=== PATIENT | female | born 1940 | race Caucasian/White ===

== ENCOUNTER 2017-05-14 11:55 | Inpatient (IN) | payer OTHER ==
[~2017-05-14] VITALS: Ht 172.7 cm; Wt 57.2 kg
[~2017-05-14 11:55] MED LIST: ACETAMINOPHEN-1 EAC1 PO; ANASPAZ0.125 MG SL; ATORVASTATIN CA40 MG PO; BAYER CHEWABLE81 MG PO; BENICAR20 MG PO; BISACODYL SUPP10 MG RECTAL; CARAFATE 1 GM TA1 G1 PO; COLACE100 MG PO; COZAAR 50 MG TA50 M2 PO; CRESTOR10 MG PO; CYANOCOBAL1000 MCG/1 IM; DEXTROSE 5% IV; ENEMEEZ283 MG/5 M RC; ENOXAPARIN40 MG/0.1 SUBQ; HALDOL5 MG/1 ML IM; HALOPERIDOL5 MG/1 ML IM; HYDROCODONE-AP1 EAC6 PO; LEVAQUIN 500 M500 M4 PO; LIDODERM 5%1 PATC1 TRANSDERM; MELATONIN3 MG PO; MIRALAX17 GM PO; PACERONE 200 M200 M1 PO; PHILLIPS'311 MG PO; PRILOSEC 20 MG20 MG PO; SENOKOT-S1 TA1 PO; SEROQUEL 25 MG25 M1 PO; SEROQUEL 25 MG25 M2 PO; TOPROL XL25 MG PO; TYLENOL325 MG PO; ULTRAM 50MG TAB50 MG PO; UNICOMPLEX M TA1 TA1 PO; VITAMIN B-1100 M1 PO; ZOFRAN2 MG/1 ML IV; [UNRECOGNIZED DRUG - CODE] TOP
[2017-05-14 14:25] VITALS: BP 187/82
[2017-05-14 16:44] VITALS: BP 169/64
[2017-05-14 17:00] LABS: CALCIUM 9.2 mg/dL (8.5-10.1); CREATININE 1.4 mg/dL (0.6-1.0); POTASSIUM 3.8 mmol/L (3.5-5.1)
[2017-05-14 20:30] VITALS: BP 150/60
[2017-05-15 03:42] VITALS: BP 154/60
[2017-05-15 08:00] VITALS: BP 160/53
[2017-05-15 16:00] VITALS: BP 173/71
[2017-05-15 23:54] VITALS: BP 152/65
[2017-05-16 05:45] VITALS: BP 156/59
[2017-05-16 08:00] VITALS: BP 162/60
[2017-05-16 12:50] VITALS: BP 162/60
[2017-05-16 12:55] VITALS: BP 162/60
[2017-05-16 13:06] VITALS: BP 162/60
[2017-05-16 13:08] VITALS: BP 162/60
== END 2017-05-16 16:31 | disposition home health service (06) | DRG 392 ==
LOC: ULTRA 11:55 → 4S 14:11
PROVIDERS: Family Medicine
DX: K21.9 Gastro-esophageal reflux disease without esophagitis (principal); Z96.641 Presence of right artificial hip joint; Z90.49 Acquired absence of other specified parts of digestive tract; Z90.710 Acquired absence of both cervix and uterus; Z95.5 Presence of coronary angioplasty implant and graft; Z87.81 Personal history of (healed) traumatic fracture
CPT/HCPCS: 10102

== ENCOUNTER → 2017-09-06 | Outpatient (CLI) | payer OTHER | LOC: ULTRA 09:59 | DX: M25.462 Effusion, left knee (principal); M71.22 Synovial cyst of popliteal space [Baker], left knee ==

== ENCOUNTER 2017-11-06 11:57 | Inpatient (IN) | payer OTHER ==
[~2017-11-06] VITALS: Ht 175.3 cm; Wt 62.1 kg
--- NOTE | ~2017-11-06 | H ---
[facility] [place] [address] HISTORY AND PHYSICAL Name: PASCUAL HAAS Room #: 405-P [facility] IN M.R.#: [id number] Admission: 11/06/17 Attend Phys: Edi Scales MD Discharge: Date of : 41 Report #: [id number] THIS REPORT FOR: //name// CC: Edi Scales DATE OF SERVICE: 11/06/2017 CHIEF COMPLAINT: Left leg is red, swollen and oozing. HISTORY OF PRESENT ILLNESS: The patient is a 77-year-old female who presented to our clinic for evaluation of the above complaints. She had a vein procedure done by Dr. Gregorio recently as an outpatient. This redness and swelling has developed over the last several days. She is not aware of any fevers or chills. PAST MEDICAL HISTORY: Significant for: 1. Venous insufficiency. 2. Atrial fibrillation. 3. Vitamin B deficiency. 4. Hypertension. MEDICATIONS: Include Cozaar 50 mg a day, Colace daily, B12 injections monthly, aspirin 81 mg a day, amiodarone 10 mg at bedtime, Tylenol p.r.n. ALLERGIES: No known drug allergies. SOCIAL HISTORY: She lives independently. She is a prior smoker, nondrinker. REVIEW OF SYSTEMS: CONSTITUTIONAL: No fever or chills. HEENT: No headaches or visual changes. CHEST: No chest pain, tightness in chest, short of breath, cough or sputum production. GASTROINTESTINAL: No nausea, vomiting, diarrhea or constipation. GENITOURINARY: No burning or frequency. EXTREMITIES: Left leg as above. PHYSICAL EXAMINATION: GENERAL: The patient is awake, alert, in no acute distress. She is afebrile. VITAL SIGNS: Stable. HEENT: Mucous membranes are moist. NECK: Supple, no adenopathy, no thyromegaly or bruits. CHEST: Clear to auscultation. CARDIOVASCULAR: Regular, without murmur. ABDOMEN: Soft, no masses. Bowel sounds are active. EXTREMITIES: Left leg shows extensive edema, erythema with multiple blushes around her legs, especially in the back of her calf which is about 4 x 4 cm, [facility] [address] [place] [address] HISTORY AND PHYSICAL Name: PASCUAL HAAS Room #: 405-P ADM IN .R.#: [id number] Admission: 11/06/17 Attend Phys: Edi Scales MD Discharge: Date of : 41 Report #: [id number] full of serous fluid. The toes have excoriated skin and erythema as well. There is no gangrene. Pulses are present bilaterally. ASSESSMENT: Severe cellulitis of the left leg. PLAN: We will admit, start on Rocephin, given a gram of Rocephin IM in the office, get a CBC with CMP, placed her on wound care consult list, get a wound culture and then her home meds. <ELECTRONICALLY SIGNED> By: Edi Scales MD 11/07/17 0826 1245 1304 Edi Scales MD /nt
--- NOTE | ~2017-11-06 | HC ---
[facility] [place] [address] CONSULTATION Name: PASCUAL HAAS Room #: 405-P [facility] IN ..#: [id number] Admission: 11/06/17 Attend Phys: Edi Scales MD Discharge: Date of : 41 Report #: [id number] THIS REPORT FOR: //name// CC: Edi Scales DATE OF SERVICE: 11/07/2017 CHIEF COMPLAINT: Ulcerations and cellulitis, bilateral lower extremities. HISTORY OF PRESENT ILLNESS: This is a 77-year-old female patient who was admitted after developing increasing redness, swelling and drainage from ulcerations on her left leg. She has had recent procedure done by Dr. Oneill as an outpatient and the redness and drainage have developed over the past several days. She does complain of some pain, but otherwise is resting comfortably. PAST MEDICAL HISTORY: Positive for history of venous insufficiency, atrial fibrillation, vitamin B deficiency and hypertension. MEDICATIONS: Include Cozaar, Colace, aspirin and amiodarone. ALLERGIES: None. SOCIAL HISTORY: The patient denies alcohol or tobacco use. FAMILY HISTORY: Noncontributory. REVIEW OF SYSTEMS: CONSTITUTIONAL: Denies fever, chills, weight loss. NEUROLOGICAL: The patient denies focal weakness, numbness or tingling. EYES: The patient denies vision changes, redness or drainage. ENT: The patient denies earache, nasal drainage, sore throat. CARDIOVASCULAR: The patient denies chest pain, palpitations, diaphoresis. PULMONARY: The patient denies cough, shortness of breath. GASTROINTESTINAL: The patient denies nausea, vomiting, abdominal pain. ORTHOPEDIC: The patient does complain of pain, swelling and drainage from her left lower extremity. Other systems in a 12-point review of systems are negative. PHYSICAL EXAMINATION: VITAL SIGNS: At this time include pulse 57, respiratory rate 18, blood pressure 106/49, temperature 97.0. GENERAL: This is a chronically ill-appearing female patient who appears to be in minimal distress. HEENT: Normocephalic. Nose and throat clear. NECK: Supple. [facility] [address] [place] [address] CONSULTATION Name: PASCUAL HAAS Room #: 405-P [facility] IN M.R.#: [id number] Admission: 11/06/17 Attend Phys: Edi Scales MD Discharge: Date of : 41 Report #: [id number] LUNGS: Clear. HEART: Regular rhythm. ABDOMEN: Some bowel sounds present. LOWER EXTREMITIES: Demonstrate 2+ edema. I am able to palpate her distal pulses. She has a cellulitic type changes in both lower extremities and venous ulcers involving the left leg. The areas are tender to palpation. There is no evidence of obvious abscess at this time. NEUROLOGIC: The patient is alert, oriented, moving all 4 extremities spontaneously. LABORATORY DATA: Includes sodium 138, potassium 5.0, chloride 105, CO2 of 24, BUN 39, creatinine 1.4, glucose 114. White blood cell count is 8.7, hemoglobin 10.8, hematocrit 32.4, platelet count 153,000. CLINICAL IMPRESSION: 1. Cellulitis to bilateral lower extremities. 2. Venous ulcerations, left lower extremity. 3. Generalized weakness. RECOMMENDATIONS: At this point in time, we will recommend Silvadene and morphine to the ulceration of the left leg to help with pain. We recommend Xeroform gauze to cover and we will change this to b.i.d. Light compression would be appropriate, elevation when possible. I would recommend continue IV antibiotics. PT, OT for help with weakness and mobility as well as nutrition to maximize wound healing. I appreciate being asked to see her in consultation. <ELECTRONICALLY SIGNED> By: Rd Chinchilla MD 11/08/[address] MD /nt
[2017-11-06 13:16] LABS: HEMATOCRIT 32.4 % (37.0-47.0); HEMOGLOBIN 10.8 gm/dL (12.0-15.0); MCH 33.7 pg (26.0-34.0); MCHC 33.4 g/dL (28.0-37.0); RBC 3.21 mil/uL (4.20-5.00); RDW 15.6 % (10.5-14.5); WBC 8.7 thou/uL (4.0-11.0)
[2017-11-06 13:27] LABS: CALCIUM 9.2 mg/dL (8.5-10.1); CREATININE 1.4 mg/dL (0.6-1.0)
[2017-11-06 19:00] VITALS: BP 168/72
[2017-11-07 04:00] VITALS: BP 134/66
[2017-11-07 09:30] VITALS: BP 126/49
[2017-11-07 17:24] VITALS: BP 106/49
[2017-11-07 20:00] VITALS: BP 135/69
[2017-11-08] VITALS: BP 112/63
[2017-11-08 04:00] VITALS: BP 103/49
[2017-11-08 09:37] VITALS: BP 114/52
[2017-11-08 16:00] VITALS: BP 144/73
[2017-11-08 19:52] VITALS: BP 131/59
[2017-11-09 04:00] VITALS: BP 110/47
[2017-11-09 07:40] VITALS: BP 128/58
[2017-11-09 15:55] VITALS: BP 113/42
[2017-11-09 20:43] VITALS: BP 116/51
[2017-11-10 04:00] VITALS: BP 110/49
[2017-11-10 08:00] VITALS: BP 138/59
[2017-11-10 08:11] VITALS: BP 138/59
[2017-11-10] MEDS ORDERED: ROCEPHIN 11 GM/1001 IV (12:32)
[2018-06-19] MEDS ORDERED: KEFLEX500 M1 PO (18:42)
== END 2017-11-10 15:04 | DRG 603 ==
LOC: PRE 11:57 → EROBS 11:59 → 4N 11:59 → EROBS 13:01 → 4N 18:37
PROVIDERS: Family Medicine
DX: L03.116 Cellulitis of left lower limb (principal); I48.91 Unspecified atrial fibrillation; I10 Essential (primary) hypertension; I89.0 Lymphedema, not elsewhere classified; I87.2 Venous insufficiency (chronic) (peripheral); L03.115 Cellulitis of right lower limb; Z87.891 Personal history of nicotine dependence; Z79.82 Long term (current) use of aspirin; Z79.899 Other long term (current) drug therapy; W18.39XA Other fall on same level, initial encounter; Y93.89 Activity, other specified; Y92.89 Other specified places as the place of occurrence of the external cause; Y99.8 Other external cause status
CPT/HCPCS: 10790

== ENCOUNTER → 2017-12-04 | Outpatient (CLI) | payer OTHER ==
[~2017-12-04] MED LIST changes: +KEFLEX500 M1 PO; +PHENERGAN 25 MG25 M1 PO; +ROCEPHIN 11 GM/1001 IV; +ZANTAC 150MG T150 MG PO
== END ==
LOC: ULTRA 09:54
DX: R60.0 Localized edema (principal); M79.89 Other specified soft tissue disorders

== ENCOUNTER 2018-04-29 12:55 | Emergency (ER) | payer OTHER ==
[~2018-04-29] VITALS: Ht 167.6 cm; Wt 56.7 kg
--- NOTE | ~2018-04-29 | EKG ---
[address] [place] [address] [place] [address] ELECTROCARDIOGRAM REPORT Name: PASCUAL HAAS Room #: DEP Luisa#: [id number] Admission: 04/29/18 Attend Phys: Discharge: 04/29/18 Date of : 41 Report #: [id number] THIS REPORT FOR: //name// [facility] ED Test Date: 2018-04-29 Test Time: 14:44:53 Pat Name: PASCUAL HAAS Department: Room: Gender: F Bdr: kehinde : 1940 Requested By: Martha Macdonald Order Number: [id number] MD: Grant Roper Measurements Intervals [place] Rate: 53 P: 88 GA: 227 QRS: -5 QRSD: 113 T: 140 QT: 484 QTc: 455 Interpretive Statements Sinus rhythm Prolonged GA interval Incomplete left bundle branch block Compared to ECG 11/17/2016 09:47:09 First degree AV block now present Left bundle-branch block now present Atrial fibrillation no longer present Electronically Signed On 04-29-2018 22:05:19 CDT by Grant Roper [email or web address] <ELECTRONICALLY SIGNED> By: Grant Roper MD 04/29/182204 1444 1444 Grant Roper MD /ARIA
[~2018-04-29 12:55] MED LIST changes: -KEFLEX500 M1 PO; -PHENERGAN 25 MG25 M1 PO; -ZANTAC 150MG T150 MG PO
[2018-04-29 14:50] LABS: BASOPHILS 0.5 % (0.0-2.0); EOSINOPHILS 0.8 % (0.0-3.0); HEMOGLOBIN 8.4 gm/dL (12.0-15.0); LYMPHOCYTES 13.1 % (24.0-44.0); MCH 35.6 pg (26.0-34.0); MCHC 34.8 g/dL (28.0-37.0); MCV 102.3 fL (80.0-100.0); MONOCYTES 7.8 % (1.0-8.0); POLYS 77.8 % (36.0-66.0); RBC 2.35 mil/uL (4.20-5.00); RDW 13.3 % (10.5-14.5); WBC 5.1 thou/uL (4.0-11.0)
[2018-04-29 14:56] LABS: ANION GAP 7 mmol/L (7-16); BUN 33 mg/dL (7-18); CALCIUM 8.6 mg/dL (8.5-10.1); CHLORIDE 99 mmol/L (98-107); CO2 27 mmol/L (21-32); CREATININE 2.1 mg/dL (0.6-1.0); GLUCOSE 102 mg/dL (74-106); POTASSIUM 3.1 mmol/L (3.5-5.1); SODIUM 133 mmol/L (136-145)
[2018-04-29 15:05] LABS: ALBUMIN 3.5 g/dL (3.4-5.0); LIPASE 266 U/L (73-393); SGOT 31 U/L (15-37); SGPT 37 U/L (30-65); TOTAL BILIRUBIN 0.6 mg/dL (<0.1-1.0); TOTAL PROTEIN 6.6 g/dL (6.4-8.2); TROPONIN-I <0.06 ng/mL (<0.06)
[2018-04-29 15:14] LABS: PLATELET ESTIMATE NORMAL
[2018-04-29 15:16] LABS: LARGE PLATELETS SEVERAL
[2018-04-29 15:49] LABS: URINE BILIRUBIN NEGATIVE (Negative); URINE BLOOD NEGATIVE (Negative); URINE CLARITY CLEAR; URINE COLOR YELLOW; URINE GLUCOSE-RANDOM* NEGATIVE (Negative); URINE KETONES NEGATIVE (Negative); URINE LEUKOCYTES-REFLEX NEGATIVE (Negative); URINE NITRITE-REFLEX NEGATIVE (Negative); URINE PROTEIN (DIPSTICK) NEGATIVE (Negative); URINE SPECIFIC GRAVITY 1.015 (1.005-1.035); URINE UROBILINOGEN 0.2 E.U./dl (0.2-1.0)
[2018-04-29] MEDS ORDERED: ZANTAC 150MG T150 MG PO (16:36)
[2018-04-29] MEDS ORDERED: PHENERGAN 25 MG25 M1 PO (16:36)
== END 2018-04-29 17:17 | disposition home or self-care (01) ==
LOC: ER 12:55
PROVIDERS: Physician Assistant
DX: R10.13 Epigastric pain (principal); R10.11 Right upper quadrant pain; R11.0 Nausea; R14.0 Abdominal distension (gaseous); Z90.49 Acquired absence of other specified parts of digestive tract; Z90.710 Acquired absence of both cervix and uterus; Z90.89 Acquired absence of other organs

== ENCOUNTER → 2018-10-09 | Outpatient (CLI) | payer OTHER ==
[~2018-10-09] MED LIST changes: +KEFLEX500 M1 PO; +PHENERGAN 25 MG25 M1 PO; +ZANTAC 150MG T150 MG PO
== END ==
LOC: HYPER 10-07 06:54
DX: L89.152 Pressure ulcer of sacral region, stage 2 (principal); I10 Essential (primary) hypertension; I25.810 Atherosclerosis of coronary artery bypass graft(s) without angina pectoris; I87.2 Venous insufficiency (chronic) (peripheral); I77.9 Disorder of arteries and arterioles, unspecified; I48.0 Paroxysmal atrial fibrillation; L03.116 Cellulitis of left lower limb; E78.00 Pure hypercholesterolemia, unspecified; I25.2 Old myocardial infarction; F32.9 Major depressive disorder, single episode, unspecified; Z95.1 Presence of aortocoronary bypass graft; Z91.81 History of falling

== ENCOUNTER 2018-10-27 15:50 | Inpatient (IN) | payer OTHER ==
[~2018-10-27] VITALS: Ht 170.2 cm; Wt 61.7 kg
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
[2018-10-27 15:54] VITALS: BP 148/73
--- NOTE | 2018-10-27 16:15 | NUR ---
PATIENT TO ER #2 WITH C/0 REDNESS, EDEMA, PAIN TO BILATERAL LE, RIGHT > LEFT. PATIENT STATES VISITING NURSE WAS OUT TODAY AND INSTRUCTED PT TO COME TO ED FOR EVALUATION. SEE ATTACHED ASSESSMENT.
[2018-10-27 16:57] LABS: ABSOLUTE NEUTROPHILS 3.1 thou/uL (1.4-8.2); BASOPHILS 1.3 % (0.0-2.0); EOSINOPHILS 3.2 % (0.0-3.0); HEMATOCRIT 28.3 % (37.0-47.0); HEMOGLOBIN 9.4 gm/dL (12.0-15.0); LYMPHOCYTES 18.1 % (24.0-44.0); MCH 35.4 pg (26.0-34.0); MCHC 33.2 g/dL (28.0-37.0); MCV 106.5 fL (80.0-100.0); MONOCYTES 10.4 % (1.0-8.0); PLATELET COUNT 110 thou/uL (150-400); RBC 2.65 mil/uL (4.20-5.00); RDW 15.1 % (10.5-14.5); WBC 4.7 thou/uL (4.0-11.0)
[2018-10-27 17:02] LABS: ANION GAP 12 mmol/L (7-16); BUN 42 mg/dL (7-18); CALCIUM 9.6 mg/dL (8.5-10.1); CHLORIDE 105 mmol/L (98-107); CO2 24 mmol/L (21-32); CREATININE 1.7 mg/dL (0.6-1.0); GLUCOSE 109 mg/dL (74-106); POTASSIUM 4.9 mmol/L (3.5-5.1); SODIUM 141 mmol/L (136-145)
[2018-10-27 17:10] LABS: ALBUMIN 3.8 g/dL (3.4-5.0); MAGNESIUM 2.3 mg/dL (1.8-2.4); SGOT 40 U/L (15-37); SGPT 36 U/L (30-65); TOTAL BILIRUBIN 0.6 mg/dL (<0.1-1.0); TOTAL PROTEIN 7.3 g/dL (6.4-8.2); TROPONIN-I <0.06 ng/mL (<0.06)
[2018-10-27 17:56] LABS: URINE BILIRUBIN NEGATIVE (Negative); URINE BLOOD NEGATIVE (Negative); URINE CLARITY CLEAR; URINE COLOR YELLOW; URINE GLUCOSE-RANDOM* NEGATIVE (Negative); URINE KETONES NEGATIVE (Negative); URINE LEUKOCYTES-REFLEX NEGATIVE (Negative); URINE NITRITE-REFLEX NEGATIVE (Negative); URINE PROTEIN (DIPSTICK) NEGATIVE (Negative); URINE UROBILINOGEN 0.2 E.U./dl (0.2-1.0)
[2018-10-27 18:23] VITALS: BP 136/69
--- NOTE | 2018-10-27 18:30 | NUR ---
PATIENT READY FOR TRANSFER TO THE FLOOR. U/S AT BEDSIDE DOING VENOUS DOPPLER. WILL TRANSPORT AFTER COMPLETION.
[2018-10-27 18:31] VITALS: BP 145/59
[2018-10-27 19:00] VITALS: BP 150/72
--- NOTE | 2018-10-27 19:34 | NUR ---
Pt arrived on unit approx 1900 as tranfer from ED. Pt arrived in stable condition. O2 97% on RA, no s/sx of resp distress. Pt A&Ox3, able to make needs known. Orientated to room, call light and fall precautions. Will continue to assess and monitor pt.
--- NOTE | 2018-10-27 22:06 | EKG ---
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 : 1940 Requested By: Mark Mcgill Order Number: [id number] MD: Grant Roper Measurements Intervals [place] Rate: 61 P: 82 CT: 188 QRS: 9 QRSD: 100 T: 186 QT: 457 QTc: 461 Interpretive Statements Sinus rhythm Anteroseptal infarct, old Nonspecific repol abnormality, lateral leads Compared to ECG 04/29/2018 14:44:53 Myocardial infarct finding now present Early repolarization now present First degree AV block no longer present Left bundle-branch block no longer present Electronically Signed On 10-27-2018 22:05:57 [employer]OT [employer] HELPER by Grant Roper [email or web address] <ELECTRONICALLY SIGNED> By: Grant Roper MD 10/27/18 2205 1724 1724 Grant Roper MD /EPI
[2018-10-28 04:35] VITALS: BP 136/57
[2018-10-28 05:58] LABS: ABSOLUTE NEUTROPHILS 2.1 thou/uL (1.4-8.2); BASOPHILS 1.3 % (0.0-2.0); EOSINOPHILS 4.3 % (0.0-3.0); HEMATOCRIT 25.1 % (37.0-47.0); HEMOGLOBIN 8.4 gm/dL (12.0-15.0); LYMPHOCYTES 28.4 % (24.0-44.0); MCHC 33.3 g/dL (28.0-37.0); MCV 105.1 fL (80.0-100.0); MONOCYTES 11.4 % (1.0-8.0); POLYS 54.6 % (36.0-66.0); RBC 2.39 mil/uL (4.20-5.00); RDW 14.5 % (10.5-14.5); WBC 3.9 thou/uL (4.0-11.0)
[2018-10-28 06:20] LABS: ALBUMIN 2.9 g/dL (3.4-5.0); CALCIUM 8.6 mg/dL (8.5-10.1); CREATININE 1.6 mg/dL (0.6-1.0); POTASSIUM 4.4 mmol/L (3.5-5.1); TOTAL BILIRUBIN 0.6 mg/dL (<0.1-1.0); TOTAL PROTEIN 5.8 g/dL (6.4-8.2)
[2018-10-28 07:08] LABS: PLATELET COUNT 92 thou/uL (150-400); PLATELET ESTIMATE DECREASED
[2018-10-28 07:13] LABS: LARGE PLATELETS OCCASIONAL
[2018-10-28 07:14] LABS: MACROCYTES 1+
[2018-10-28 07:44] LABS: FOLIC ACID 62.6 ng/mL (8.6-58.9)
[2018-10-28 07:50] VITALS: BP 118/59
--- NOTE | 2018-10-28 12:10 | NUR ---
ASSUMED CARE OF PT AT 0700. ASSESSMENT COMPLETED AND CHARTED. A&O,X4. REPORTING LEFT LOWER LEG PAIN, PAIN MEDS GIVEN ORDERED. LEG APPEARS RED, SWOLLEN, FLAKEY SKIN, WARM AND TENDER TO TOUCH. RIGHT ANKLE EDEMA. WOUNDS ON BUTTOCK. NO OTHER CONCERNS AT THIS TIME. PT TRANSFERED TO S.S. IN STABLE CONDITION.
[2018-10-28 12:35] VITALS: BP 123/59
--- NOTE | 2018-10-28 12:43 | NUR ---
RECEIVED PT FROM . ORIENTED PT TO ROOM/CALL LIGHT. ASSESSMENT IS CHARTED. IV FLUIDS NS AT 80ML/HR. PT REPORTS PAIN 7/10 AFTER FENTANYL. HYDROCODONE GIVEN. PT UNHAPPY WITH SUDDEN MOVE TO SENIOR SUITES. STATES THE ROOM FEELS CLOSED IN. VISITED WITH PATIENT FOR A TIME AND PT FEELS BETTER AT THIS TIME ABOUT MOVE. WILL CONTINUE CURRENT CARE ORDERED.
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
--- NOTE | 2018-10-28 16:32 | NUR ---
WOUND CONSULT: PT. WAS SEEN TODAY BY DR. NICHOLE AND MYSELF. PT. HAS A SMALL STAGE 2 PRESSURE ULCER TO HER RIGHT BUTTOCK AND DRY LEFT LEG. RECOMMENDATIONS: LOTION TO THE LEFT LEG AND ZGUARD TO SACRUM. PT. AND STAFF NURSE WERE INSTRUCTED ON WOUND CARE.
--- NOTE | 2018-10-28 18:07 | NUR ---
PT DOING WELL. SKIN CARE DONE TO LOWER LEGS PER WOUND CARE ORDERS. ASSISTED PT TO CHAIR FOR DINNER. PAIN MEDICATION GIVEN FOR LEFT LEG PAIN RATED 8/10 AND BUTTOCK PAIN RATED 5/10. WILL CONTINUE TO MONITOR.
[2018-10-28 19:24] VITALS: BP 124/64
--- NOTE | 2018-10-29 03:33 | NUR ---
PATIENT ALERT AND ORIENTED X4. IV PATENT NS AT 80ML/HR. BOUNDS ON LEGS AND L RUTTOCK OPEN TO AIR. UP TO BATHROOM WITH ASSIST OF 1. C/O PAIN AND PAIN MED GIVEN WITH LITTLE RELIEF. TALKED WITH THIS NURSE FOR SEVERAL MINUTES. AWAKE MOST OF NIGHT.
[2018-10-29 09:39] VITALS: BP 146/63
--- NOTE | 2018-10-29 09:44 | NUR ---
ASSUMED PT CARE AT 0700. ASSESSED PT AT 0930. PT UP IN CHAIR. REPORTS PAIN TO LEFT LEG RATED 9/10. LEFT LEG IS EDEMETOUS AND REDDENED. LEG WAS WASHED GENTLY WITH SOAP/WATER, DRIED, AND AMMONIA LACTATE LOTION APPLIED ORDERED. ZGUARD APPLIED TO WOUND TO RIGHT BUTTOCK. ASSESSMENT IS CHARTED, VITAL SIGNS STABLE. NO OTHER CONCERNS AT THIS TIME. WILL CONTINUE WITH CURRENT CARE.
--- NOTE | 2018-10-29 10:27 | NUR ---
PT WAS INFORMED THAT DR WRIGHT ORDERED AN MRI FOR MEMORY PROBLEMS. PT FILLED OUT MRI FORM BUT THEN CALLED NURSE BACK IN STATING SHE WAS GETTING MORE AND MORE ANGRY. PT DID NOT THINK AN MRI WAS NECESSARY AND SHE DIDN'T APPRECIATE PEOPLE SHE DOESN'T EVEN KNOW TALKING ABOUT HER AND ACCUSING HER OF HAVING THESE PROBLEMS. WHEN ASKED IF PT HAD SEEN A DOCTOR TODAY SHE STATED SHE HAS NOT SEEN ANYONE, THEN A FEW SECONDS LATER STATES THAT DR WRIGHT DID COME IN AND SEE HER. PT DOES NOT WANT MRI DONE AND STATES SHE CAN TAKE CARE OF HERSELF. ENCOURAGED PT THAT THOSE INVOLVED IN HER CARE ARE LOOKING OUT FOR HER BEST INTERESTS AND MAKING SURE SHE IS SAFE AT HOME. PT STILL REFUSES MRI AT THIS TIME.
--- NOTE | 2018-10-29 10:57 | HC ---
[facility] [place] [address] CONSULTATION Name: PASCUAL HAAS Room #: 224-P [facility] IN M.R.#: [id number] Admission: 10/27/18 Attend Phys: Andre De Anda MD Discharge: Date of : 41 Report #: [id number] THIS REPORT FOR: //name// CC: Andre De Anda HISTORY OF PRESENT ILLNESS: The patient is a 78-year-old female who presents to the Emergency Room with cellulitis. She is now on IV antibiotics. I spoke to the patient and she tells me that she does not have difficulty with her memory, most of her bills are on auto pay and the rest of the bill she pays by hand, she states she does not pay them late. She does not drive, but could drive if she wanted to. Apparently, the patient's only source of help is from home health and not only is home health, but the apartment where she lives, the management is concerned about the patient. Apparently, her apartment is dirty and they feel that she is struggling. The patient has had normal B12 and thyroid studies. PAST MEDICAL HISTORY: Endometriosis, hyperlipidemia, hypertension, pelvic fracture, coronary artery disease, B12 deficiency, iron deficiency. PAST SURGICAL HISTORY: Cholecystectomy, coronary artery bypass graft x 6, hysterectomy, right hip fracture repair. MEDICATIONS: At home include tramadol p.r.n., rosuvastatin 40 mg daily, losartan 50 mg daily, amiodarone 200 mg daily. ALLERGIES: None. VITAL SIGNS: Temperature 36.9, pulse rate 64, respiratory rate 16, blood pressure 146/63, bedside pulse oximetry 100% on room air. LABORATORY DATA: White blood cell count 3.9, hemoglobin 8.4, hematocrit 25.1, MCV 105.1, platelet count 92,000. Urinalysis unremarkable. Chemistry: Sodium 140, potassium 4.4, chloride 107, carbon dioxide 23, BUN 36, creatinine 1.6, GFR 31, glucose 79. Lactic acid 0.9, calcium 8.6, magnesium 2.3, total bilirubin 0.6, AST 41, ALT 36, alkaline phosphatase 64, total protein 5.8, albumin 2.9. Vitamin B12 523, folic acid 62.6. TSH 3.4, free T4 1.1. The patient's last CT scan of the head was 12/21/2015, this was unremarkable. NEUROLOGIC: Cranial nerves 2-12 are grossly intact. Motor exam demonstrates symmetrical strength in all 4 extremities with tone and bulk normal. Reflexes are trace throughout. Coordination demonstrates no evidence of dysmetria. The patient scored a 27/30 on the mini mental state exam. She did not know what room she was in and she thought it was 10/28/2018 when it is 10/29/2018 and she thought it was Sunday when it is Sunday. IMPRESSION AND PLAN: I spoke with the speech therapist who was about to go into [address] [address] CONSULTATION Name: PASCUAL HAAS Room #: 224-P [facility] IN M.R.#: [id number] Admission: 10/27/18 Attend Phys: Andre De Anda MD Discharge: Date of : 41 Report #: [id number] the room and do a MoCA. My feeling is that unless there is a significant abnormality on the MoCA, I would reassess the patient's mentation as an outpatient. For the most part, she did well on the memory testing. There are no untreated underlying causes of dementia. However, because there is some concern, I am going to order either a CT or MRI of the head. After I left the room, the nurse advised me that the patient declined the MRI. The patient should also be screened for depression. I understand there is concern about her living alone. I am not sure that this is because of dementia, but I do think depression should be considered. I thank you for your evaluation of the patient and we will reevaluate her tomorrow. <ELECTRONICALLY SIGNED> By: Maria De Jesus Rodríguez DO 10/29/18 1057 1004 1042 Maria De Jesus Rodríguez DO /nt
--- NOTE | 2018-10-29 14:09 | NUR ---
PT DOING WELL THIS SHIFT. HAS BEEN SEEN BY NUEURO,PSYCH, AND SPEECH. ASSISTED PT TO BED TO ELEVATE LEFT LEG. REAPPLIED ZGUARD TO RIGHT BUTTOCK WOUND. PT REPORTS PAIN IN LEG /. PAIN MEDICATION GIVEN. OTHERWISE NO NEW CONCERNS. WILL CONTINUE WITH CURRENT POC.
--- NOTE | 2018-10-29 16:20 | NUR ---
WOUND FOLLOW UP: PT. WAS SEEN TODAY BY DR. NICHOLE AND MYSELF. PT. WOUNDS ARE CLINICALLY BETTER TODAY. RECOMMENDATIONS: CONTINUE WITH CURRENT PLAN OF CARE. PT. AND STAFF NURSE WERE INSTRUCTED ON PLAN OF CARE.
--- NOTE | 2018-10-29 17:35 | NUR ---
PT DOING WELL TODAY. NAPPED FOR 2 HOURS THIS AFTERNOON AND ELEVATED LEG. PT UP AND AROUND IN ROOM WITH NO PROBLEMS. PAIN WELL CONTROLLED WITH CURRENT REGIMINE. NO NEW CONCERNS AT THIS TIME. WILL CONTINUE CARE.
--- NOTE | 2018-10-29 17:48 | HC ---
[facility] [place] [address] CONSULTATION Name: PASCUAL HAAS Room #: 224-P [facility] IN ..#: [id number] Admission: 10/27/18 Attend Phys: Andre De Anda MD Discharge: Date of : 42 Report #: [id number] THIS REPORT FOR: //name// CC: Andre De Anda DATE OF SERVICE: 10/28/2018 INFECTIOUS DISEASES CONSULTATION REASON FOR CONSULTATION: Evaluate bilateral lower extremity cellulitis and venous stasis disease, which has been a recurring issue. HISTORY OF PRESENT ILLNESS: The patient is a 78-year-old with known history of coronary artery disease and peripheral venous stasis disease. She presents to the Emergency Room due to increased pain, swelling and erythema mostly in her left leg. She said over the last several months, this has been increasingly painful lower leg. Over the last week or so, her right leg has also been causing troubles. Pain was such that she was unable to care for herself at home, was brought into the Emergency Room for further evaluation. She does live alone. In addition, she has been dealing with a left gluteal wound that has been present for about 8 months. She has significant arthritis in her left knee, which limits her mobility. No fever, chills or sweats. She is nondiabetic. No specific trauma. She sleeps in a recliner to elevate her feet. She has not been using any compression stockings. ALLERGIES: None known. MEDICATIONS: As noted on her MAR, which were reviewed. Was given vancomycin and Zosyn in the Emergency Room. PAST MEDICAL AND SURGICAL HISTORY: Right total hip arthroplasty, laparoscopic cholecystectomy, hysterectomy, tonsillectomy, coronary artery bypass grafting, pelvic fracture, endometriosis, chronic pain, hyperlipidemia, atrial fibrillation, congestive heart failure. FAMILY HISTORY: Noncontributory. SOCIAL HISTORY: Nonsmoker, no significant alcohol intake. REVIEW OF SYSTEMS: SKIN: As noted above. No adenopathy. NEUROLOGIC: Denies any neurologic or psychiatric issues. HEENT: Denies any headache or photophobia. No oral mucosal issues. PULMONARY: Denies any cough or sputum production. CARDIOVASCULAR: As above with no ongoing chest pain, PND or orthopnea. GASTROINTESTINAL: Negative. [facility] [address] [place] [address] CONSULTATION Name: PASCUAL HAAS Room #: 224-P [facility] IN .R.#: [id number] Admission: 10/27/18 Attend Phys: Andre De Anda MD Discharge: Date of : 41 Report #: [id number] GENITOURINARY: Negative with reported good urine output. MUSCULOSKELETAL: Joints as above with degenerative arthritis. HEMATOLOGIC: Negative. PHYSICAL EXAMINATION: VITAL SIGNS: Afebrile and hemodynamically stable. GENERAL: Sitting up in her chair, in no acute distress, but did have to use a walker in order to get over to the bed. She was conversant, pleasant and appeared her stated age. HEENT: Eyes without conjunctivitis or scleral icterus. Mouth without lesion. SKIN: With multiple seborrheic keratoses, a healing pressure wound to her left gluteus with no purulent drainage or erythema. This area was tender to palpation with no fluctuance. Bilateral lower extremity venous stasis disease, mild on the right, fairly extensive on the left with cirrhosis. She has secondary cellulitis involving her pretibial skin from ankle to mid calf region. Area was significantly tender to palpation. She had 2+ edema on the left side, 1+ on the right. Pulses in both feet palpable. Sensation intact. Capillary refill normal. NECK: Supple with no thyromegaly, mass or JVD. LUNGS: Clear. HEART: Regular without murmur, gallop or rub. ABDOMEN: Soft, nontender. No hepatosplenomegaly or mass. EXTERNAL GENITALIA: Examination not performed. RECTAL: Examination not performed. EXTREMITIES: Pulses in her groins were palpable, 3+. Cranial nerves intact. Strength in upper and lower extremities appeared normal. Did have unsteady gait using a walker. PSYCHIATRIC: Mood was normal. LABORATORY STUDIES: Reviewed, notable for creatinine 1.6. Platelet count 92,000, hemoglobin 8.4 and WBC 3.9. Urinalysis was negative. Blood culture negative to date. Ultrasound negative for DVT. Chest x-ray was clear. IMPRESSION: 1. A 78-year-old with uncontrolled venous stasis disease and secondary cellulitis involving the left lower extremity. She has chronic kidney disease and now, new finding of anemia and thrombocytopenia. Cause of her thrombocytopenia would likely be infection related versus drugs, less likely bone marrow issue. I did not palpate spleen to support sequestration. 2. Congestive heart failure and ischemic heart disease also a consideration, although her chest x-ray was clear. 3. Venous insufficiency. RECOMMENDATIONS: We will continue current plan of care with leg elevation and diuresis as possible. We will use antibiotic coverage for Strep and Staph, [address] [address] CONSULTATION Name: PASCUAL HAAS Room #: 224-P [facility] IN M.R.#: [id number] Admission: 10/27/18 Attend Phys: Andre De Anda MD Discharge: Date of : 41 Report #: [id number] cefazolin. Follow blood counts and creatinine. Use emollients and steroid cream for skin. <ELECTRONICALLY SIGNED> By: Mark Silva MD 10/29/18 1748 [id number] 57 Mark Silva MD /nt
[2018-10-29 21:04] VITALS: BP 93/51
[2018-10-30 05:34] VITALS: BP 108/53
--- NOTE | 2018-10-30 05:35 | NUR ---
PT RESTED GOOD, ALERT/ORIENTED X4, USING CALL LIGHT APPROPRIATELY, SORE TO SACRUM MEDICATED WITH EACH TOILETING, VOIDING GOOD, NO BM PASSED THIS SHIFT, LEFT LEG STILL SWOLLEN, KEPT ELEVATED, CONTINUE WITH ANCEF IV EVERY 8 HOURS, ON ROOM AIR, VSS, PAIN CONTROLLED BY [place], ENC. ORAL FLUID INTAKE, ABLE TO TURN AND REPOSITION SELF IN BED, HOURLY ROUNDING DONE, MONITORED,.
[2018-10-30 07:57] VITALS: BP 103/53
[2018-10-30 08:38] LABS: ABSOLUTE NEUTROPHILS 2.6 thou/uL (1.4-8.2); BASOPHILS 1.1 % (0.0-2.0); EOSINOPHILS 4.5 % (0.0-3.0); HEMATOCRIT 25.6 % (37.0-47.0); HEMOGLOBIN 8.3 gm/dL (12.0-15.0); LYMPHOCYTES 22.3 % (24.0-44.0); MCH 34.2 pg (26.0-34.0); MCHC 32.5 g/dL (28.0-37.0); MCV 105.1 fL (80.0-100.0); MONOCYTES 9.2 % (1.0-8.0); POLYS 62.9 % (36.0-66.0); RBC 2.43 mil/uL (4.20-5.00); RDW 14.5 % (10.5-14.5); WBC 4.2 thou/uL (4.0-11.0)
[2018-10-30 08:50] LABS: ALBUMIN 2.9 g/dL (3.4-5.0); CALCIUM 8.6 mg/dL (8.5-10.1); CREATININE 2.1 mg/dL (0.6-1.0); MAGNESIUM 1.8 mg/dL (1.8-2.4); TOTAL BILIRUBIN 0.3 mg/dL (<0.1-1.0); TOTAL PROTEIN 5.8 g/dL (6.4-8.2)
[2018-10-30 08:53] LABS: PLATELET COUNT 93 thou/uL (150-400)
--- NOTE | 2018-10-30 10:01 | NUR ---
INITIAL ASSESSMENT: Pt evaluated for d/c planning needs. Reviewed chart and spoke with nurse, pt and Dr Redd. Pt is alert and oriented. Pt lives alone in apartment and is on service with [facility] for nursing. Pt has walker and cane at home. Home health nurse called floor nurse and said she had some concerns about pt's safety at home. Pt said she has been at [facility] in the past, and wants to go there on d/c from hospital. Referral sent to [facility]. Will remain available to assist as needed.
--- NOTE | 2018-10-30 11:09 | NUR ---
ASSUMED CARE OF PATIENT THIS MORNING. PATIENT IS ALERT AND ORIENTED X4. SHE IS UP WITH ONE ASSIST AND WALKER. SHE HAS LLE CELLULITIS, WITH WARMTH AND REDNESS, +1 PITTING EDEMA, NON WEEPING. SHE HAS A WOUND ON HER RIGHT BUTTOCKS, WHICH IS LEFT OPEN TO AIR. WOUND CARE DONE ON BOTH SITES DAILY, WITH AMMONIUM LACTATE. SHE WAS ASSESSED THIS MORNING, NO ABNORMAL ASSESSMENT FINDINGS. SHE IS ON ROOM AIR. PATIENT IS CURRENTLY SITTING IN CHAIR, WITH CHAIR ALARM ON. SHE CALLS OUT APPROPRIATLY, CALL LIGHT WITHIN REACH.
--- NOTE | 2018-10-30 15:48 | NUR ---
WOUND FOLLOW UP: PT. WAS SEEN TODAY BY DR. NICHOLE AND MYSELF. PT. WOUNDS ARE STABLE AT THIS TIME. RECOMMENDATIONS: CONTINUE WITH CURRENT PLAN OF CARE. PT. AND STAFF NURSE WERE INSTRUCTED ON PLAN OF CARE.
[2018-10-30 17:58] VITALS: BP 112/61
--- NOTE | 2018-10-30 20:01 | NUR ---
I AGREE WITH NURSING ASSESSMENT DONE BY TAYLOR/FREDDIE.
--- NOTE | 2018-10-31 04:17 | NUR ---
PATIENT ALERT AND ORIENTED WITH SOME CONFUSION AND FORGETFULNESS. WOUND ON R BUTTOCK IS PINK WITH A SMALL AMOUNT OF BLOODY DRAINAGE. CREAM APPLIED. C/O PAIN X1. MED GIVEN WITH GOOD RELIEF. LLE STILL EDEMATOUS, UP ON PILLOWS IN BED WITH FOOT KAYA UP. SLEPT MOST OF NIGHT.
[2018-10-31 06:59] LABS: ABSOLUTE NEUTROPHILS 2.1 thou/uL (1.4-8.2); EOSINOPHILS 4.4 % (0.0-3.0); HEMATOCRIT 25.5 % (37.0-47.0); HEMOGLOBIN 8.7 gm/dL (12.0-15.0); LYMPHOCYTES 25.4 % (24.0-44.0); MCH 35.3 pg (26.0-34.0); MCV 103.8 fL (80.0-100.0); MONOCYTES 10.3 % (1.0-8.0); OBSERVED RETIC COUNT 1.04 % (0.6-2.6); POLYS 58.9 % (36.0-66.0); RBC 2.46 mil/uL (4.20-5.00); RDW 14.3 % (10.5-14.5); WBC 3.6 thou/uL (4.0-11.0)
[2018-10-31 07:03] LABS: PLATELET COUNT 91 thou/uL (150-400)
[2018-10-31 07:13] LABS: CREATININE 2.1 mg/dL (0.6-1.0); POTASSIUM 3.8 mmol/L (3.5-5.1)
[2018-10-31 07:17] LABS: % SATURATION 20 % (20-39); IRON 37 ug/dL (50-170); TIBC 186 ug/dL (250-450)
[2018-10-31 09:03] VITALS: BP 113/54
--- NOTE | 2018-10-31 09:52 | NUR ---
Following for d/c planning needs. Pt evaluated by [facility] this morning. They have clinically accepted pt and will be able to accept on d/c from hospital. Notified physician.
--- NOTE | 2018-10-31 10:31 | NUR ---
Nutrition: pt admitted with LLE cellulitis/edema. Seen due to wound risk, also with stage 2 right buttock wound. Weights stable 125-135# per pt. Decreased appetite per H&P however pt denies and states she loves the food here and is eating great. Obtained food preferences but these are limited on renal diet. Protein sources encouraged, will offer protein drink daily. Low Fe+-37. B12 WNL, hx of deficiency. LE edema, on torsemide. Suggest consider changing diet back to regular if renal labs improve to allow offering yogurt and fresh fruit more frequently-per pt request. Low nutrition risk.
--- NOTE | 2018-10-31 10:59 | NUR ---
ASSUMED CARE THIS AM, SHIFT ASSESMENT DONE, MEDS GIVEN, VSS. REPORTED PAIN, PRN PAIN MED GIVEN. UP TO THE BATHROOM WITH ALDA ASSIST WITH A WALKER. WOUND CARE TO THE LEFT LOWER EXTREMITY DONE. AWAITING ORDERS FROM DR BROWN FOR OTHER WOUND CARE IN THE BOTTOM. WILL CONTINUE TO ASSESS AND ASSIST WITH ADLs NEEDED.
[2018-10-31] MEDS ORDERED: KEFLEX500 M1 PO (15:00)
[2018-10-31] MEDS ORDERED: AMMONIUM LACTA226 GM TOP (15:45)
[2018-10-31] MEDS ORDERED: HYDROCODON-ACE1 EAC7 PO (15:45)
[2018-10-31] MEDS ORDERED: VITAMIN B-121000 MCG PO (15:45)
[2018-10-31] MEDS ORDERED: TORSEMIDE20 MG PO (15:45)
--- NOTE | 2018-10-31 16:03 | NUR ---
WOUND FOLLOW UP: PT. WAS SEEN TODAY BY DR. NICHOLE AND MYSELF. PT. WOUNDS ARE STABLE AT THIS TIME AND PT. IS IN GOOD SPIRITS. RECOMMENDATIONS: CONTINUE WITH CURRENT PLAN OF CARE. PT. AND STAFF NURSE WERE INSTRUCTED ON PLAN OF CARE.
--- NOTE | 2018-10-31 18:48 | NUR ---
DISCHARGE ORDERS RECEIVED. PERIPHERAL IV WAS TAKEN OUT. REPORT CALLED AT 1715 AND GIVEN TO ASHLEIGH. LEFT WITH TRANSPORT FROM FACILITY AT 1815
--- NOTE | 2018-11-04 07:38 | HC ---
[facility] [place] [address] CONSULTATION Name: PASCUAL HAAS Room #: 224-P [facility] IN [facility].#: [id number] Admission: 10/27/18 Attend Phys: Andre De Anda MD Discharge: 10/31/18 Date of : 41 Report #: [id number] THIS REPORT FOR: //name// CC: Andre De Anda DATE OF SERVICE: 10/28/2018 CHIEF COMPLAINT: Stasis dermatitis and sacral ulceration. HISTORY OF PRESENT ILLNESS: This is a 78-year-old female patient who was admitted to the hospital with cellulitis of the left leg. She is a poor historian. She notes redness, pain and swelling to her legs. Also, complains of some sacral pain. She spends a lot of time sitting up in a chair. PAST MEDICAL HISTORY: Positive for previous cholecystectomy, previous pelvic fracture, coronary artery disease, vitamin B12 deficiency and iron deficiency, previous cellulitis in her left leg, previous hysterectomy. MEDICATIONS: Include Tramadol, rosuvastatin, losartan, amiodarone, Keflex, torsemide. ALLERGIES: No known drug allergies. SOCIAL HISTORY: The patient denies alcohol or tobacco use. FAMILY HISTORY: Noncontributory. REVIEW OF SYSTEMS: Very limited. She does complain of pain in her sacral region. She is aware of swelling and redness to her legs. Other systems in a 14-point review of systems are either negative or unobtainable. PHYSICAL EXAMINATION: VITAL SIGNS: At this time include pulse 57, respiratory rate 14, blood pressure 118/59, temperature 97.2. GENERAL: This is a chronically ill-appearing female who appears to be in minimal distress. HEENT: Head normocephalic. Nose and throat are clear. NECK: Supple. LUNGS: Clear. ABDOMEN: Soft. EXTREMITIES: Examination of the sacral region demonstrates what appears to be some stage 2, maybe early stage 3 ulceration to the sacral gluteal region. There is some blanching erythema noted as well. Lower extremities demonstrate what appears to be mild cellulitis of the left lower extremity with some venous stasis dermatitis. NEUROLOGIC: The patient is alert, does move all 4 extremities spontaneously. [facility] [address] [place] [address] CONSULTATION Name: PASCUAL HAAS Room #: 224-P [facility] IN ..#: [id number] Admission: 10/27/18 Attend Phys: Andre De Anda MD Discharge: 10/31/18 Date of : 41 Report #: [id number] CLINICAL IMPRESSION: 1. Cellulitis, left lower extremity. 2. Stage 2/3 sacral gluteal pressure ulceration. 3. Venous stasis dermatitis, bilateral lower extremities. RECOMMENDATIONS: 1. We will recommend ammonium lactate to the dry skin both lower extremities, zinc oxide to the sacral ulcer, low air loss mattress, q. 2 hour turning and repositioning, aggressive nutritional support. Continue current medications. I appreciate being asked to see her in consultation. <ELECTRONICALLY SIGNED> By: Rd Chinchilla MD 11/04/[address] MD /marixa
== END 2018-10-31 18:49 | DRG 602 ==
LOC: ER 15:50 → EROBS 17:54 → 4E 17:54 → SICU 17:54 → 4E 18:44 → SICU 10-28 12:12
PROVIDERS: Emergency Medicine; ADMIT Internal Medicine
DX: L03.116 Cellulitis of left lower limb (principal); L89.303 Pressure ulcer of unspecified buttock, stage 3; L89.153 Pressure ulcer of sacral region, stage 3; N18.4 Chronic kidney disease, stage 4 (severe); D61.818 Other pancytopenia; I13.0 Hypertensive heart and chronic kidney disease with heart failure and stage 1 through stage 4 chronic kidney disease, or unspecified chronic kidney disease; Z96.641 Presence of right artificial hip joint; M43.6 Torticollis; G89.29 Other chronic pain; E78.5 Hyperlipidemia, unspecified; I48.91 Unspecified atrial fibrillation; I50.9 Heart failure, unspecified; I87.8 Other specified disorders of veins; I25.9 Chronic ischemic heart disease, unspecified; I87.2 Venous insufficiency (chronic) (peripheral); E53.8 Deficiency of other specified B group vitamins; R41.0 Disorientation, unspecified; I25.10 Atherosclerotic heart disease of native coronary artery without angina pectoris; I73.9 Peripheral vascular disease, unspecified; M17.12 Unilateral primary osteoarthritis, left knee; Z90.49 Acquired absence of other specified parts of digestive tract; Z90.710 Acquired absence of both cervix and uterus; Z87.81 Personal history of (healed) traumatic fracture; Z95.1 Presence of aortocoronary bypass graft
CPT/HCPCS: 10084; 15002

== ENCOUNTER → 2018-12-04 | Outpatient (CLI) | payer OTHER ==
[~2018-12-04] MED LIST changes: +AMMONIUM LACTA226 GM TOP; +HYDROCODON-ACE1 EAC7 PO; +TORSEMIDE20 MG PO; +VITAMIN B-121000 MCG PO
== END ==
LOC: RAD 10:19
DX: M50.33 Other cervical disc degeneration, cervicothoracic region (principal); M48.03 Spinal stenosis, cervicothoracic region; N18.9 Chronic kidney disease, unspecified

== ENCOUNTER 2019-07-14 12:54 | Inpatient (IN) | payer OTHER ==
[~2019-07-14] VITALS: Ht 172.7 cm; Wt 67.2 kg
--- NOTE | ~2019-07-14 | H ---
[facility] [place] [address] HISTORY AND PHYSICAL Name: PASCUAL HAAS Room #: 439-P ADM IN M.R.#: [id number] Admission: 07/14/19 Attend Phys: Andre De Anda MD Discharge: Date of : 41 Report #: [id number] THIS REPORT FOR: //name// CC: Andre De Anda DATE OF SERVICE: 07/14/2019 CHIEF COMPLAINT: Leg swelling. HISTORY OF PRESENT ILLNESS: This is one of many of recent office visits for swelling of her legs. She was last seen on 07/04/2019 and 06/18/2019, 05/23/2019 and several times before that for persistent swelling in both legs. She has been admitted to the hospital several times for swelling that was uncontrolled at home. Her home health nurses report that she continues to sleep in her recliner with her legs hanging down and that she is not compliant with keeping her legs elevated. They also report that her medication self administration has inconsistencies. The patient herself was instructed to bring all of her pills in for this visit today and a complete list of her medicines, and she forgot to do either one of these. She says that she is beginning to bleed from one of the legs, beginning to ooze fluid from her legs and that they are swollen and tight and warm and red and have an infection and she is unable to get better at home. Recently, metolazone was added to her torsemide. There has been no benefit and we are not sure if she actually obtained the metolazone or has taken the metolazone. She does have buttock decubitus ulcers that are being followed, but this should be treated by using a standard bed and simply rotating from the left side to the right side. She does not use a standard bed, instead uses a recliner, because her current bed is so low to the ground that it is hard for her to actually have the strength to get up out of. For a long time she has been sleeping in a chair. Physical therapy suggested a hospital bed and a special mattress, but she did not qualify for her health insurance to cover this. OTHER PAST MEDICAL HISTORY: Significant for a stable chronic kidney disease stage 4 with an EGFR of about 20-21, chronic anemia, noncompliance, decubitus ulcers of the right buttock, severe primary osteoarthritis of the left knee, hypertensive kidney disease, nonspecific anemia, peripheral vascular disease, chronic torticollis. She has mild cognitive impairment and the nursing staff has noted her to be forgetful and impulsive at times, occupational therapy noted an impairment in showering and dressing and being able to sequence these tasks, although in the hospital patient angrily denies any cognitive problems. Iron deficiency anemia, hyperlipidemia, chronic left painful torticollis, [facility] [address] [place] [address] HISTORY AND PHYSICAL Name: PASCUAL HAAS Room #: 439-P [facility] IN M.R.#: [id number] Admission: 07/14/19 Attend Phys: Andre De Anda MD Discharge: Date of : 41 Report #: [id number] chronic venous insufficiency at the left leg, much greater than the right, hypoproliferative anemia with macrocytosis and normal B12 and folate levels, heavily calcified arteries of the left leg for peripheral vascular disease. Hypertension. Hyperlipidemia. Amiodarone for paroxysmal atrial fibrillation and it does maintain her in sinus rhythm. Discharge summary 10/31/2018 well summarizes the details regarding her cognitive evaluation with Neurology, speech therapy, and Psychiatry. Laparoscopic cholecystectomy 12/19/2015 with postoperative delirium. She was confused, took a swing to hit one of the nursing staff and fell fracturing her pelvis. 01/22/2017, coronary artery bypass grafting here at [facility] by Dr. Ethan Olivarez. At that time, she was found to have a B12 deficiency and iron deficiency. History of hysterectomy for endometriosis and right hip fracture repair. ALLERGIES: None known. DIET: No added salt. SOCIAL HISTORY: She lives independently. Does not drink nor smoke. MEDICATIONS: List as provided by the home health nursing staff: Tylenol 2 tablets every 6 hours as needed for pain, amiodarone 200 mg daily, ammonium lactate topical lotion to the legs once or twice daily, oral multivitamin, ferrous sulfate 325 mg orally, hydrocodone 5/325 as needed for severe pain, furosemide 40 mg twice daily (although this has been replaced with torsemide 20mg two tabs twice a day, losartan 100 mg daily, potassium chloride 20 mEq daily, tramadol 50 mg as needed, triamcinolone ointment to her legs. Metolazone 2.5 mg daily has also been ordered to the pharmacy, but it is unknown if she has actually obtained it. Atorvastatin has been prescribed, but has not been taken for several years. PHYSICAL EXAMINATION: GENERAL: Shows an elderly female in the office who is in chronic discomfort. She is awake, alert and oriented. HEENT: Unremarkable. Torticollis is present with tenderness on the left side of her neck. LUNGS: Clear. CARDIOVASCULAR: Heart tones are normal and regular. ABDOMEN: Soft and nontender, without hepatosplenomegaly or masses. [facility] [address] [place] [address] HISTORY AND PHYSICAL Name: PASCUAL HAAS Room #: 439-P ADM IN [place]#: [id number] Admission: 07/14/19 Attend Phys: Andre De Anda MD Discharge: Date of : 41 Report #: [id number] EXTREMITIES: The right leg has 4+ swelling up to the mid calf and is warm to the touch with redness for cellulitis. The left leg is 4+ swollen up to above the knee, the skin is also intact with redness and warmness to the touch being present. There is tight dry skin flaking from the left leg. The skin of both feet is intact. There is edema of the feet up to the point where she was applied pressure. The toenails are long and curled into adjacent toes. There is some maceration of the skin in between the toes from not being dried properly after the shower, but no other skin breakdown. NEUROLOGIC: Screening neurological examination is grossly intact. ASSESSMENT: 1. Acute intractable edema of both legs, the left more than the right, failing outpatient therapy. 2. Redness and tenderness that is consistent with cellulitis. 3. Noncompliance. 4. Mild cognitive dysfunction. 5. Hypertension. 6. Chronic kidney disease with an EGFR of 21 and a baseline creatinine of 2.2 and a baseline BUN of 79. Admit lab of eGFR of BUN 29, Creatine of 1.5 suggest she's not taking the diuretics. 7. Chronic anemia with a hemoglobin of 10.4, MCV of 100.3 and white blood cell count of 3.08. MCV on admission of 105 suggests she's not taking her B 12. 8. Other medical problems as mentioned above. 9. The patient seems to live in her chair with her legs dependent. 10. Other medical problems as mentioned above. PLAN: The patient is admitted to the hospital for elevation of her legs and for administration of intravenous diuretics and antibiotics. She has had a good response to post-acute rehabilitation stay at [facility], and this will be pursued again. By: 1540 1704 Andre De Anda MD /nt
[~2019-07-14 12:54] MED LIST changes: +ACETAMINOPHEN650 M5 PO; +ANCEF 1GM1 GM/50 M1 IV; +ATIVAN0.5 MG PO; +COZAAR 25 MG TA25 M1 PO; +COZAAR 25 MG TA25 MG PO; +FUROSEMIDE20 MG/2 ML IV PUSH; +LIPITOR40 MG PO; +NORCO 7.5-3251 EACH PO; +NYAMYC15 GM TOP; +VENOFER50 MG/2.5 IV
[2019-07-14 15:33] LABS: ABSOLUTE NEUTROPHILS 6.2 thou/uL (1.4-8.2); BASOPHILS 0.6 % (0.0-2.0); EOSINOPHILS 1.2 % (0.0-3.0); HEMATOCRIT 31.1 % (37.0-47.0); HEMOGLOBIN 10.4 gm/dL (12.0-15.0); LYMPHOCYTES 11.1 % (24.0-44.0); MCH 35.5 pg (26.0-34.0); MCHC 33.6 g/dL (28.0-37.0); MCV 105.6 fL (80.0-100.0); MONOCYTES 6.5 % (1.0-8.0); PLATELET COUNT 136 thou/uL (150-400); POLYS 80.6 % (36.0-66.0); RBC 2.94 mil/uL (4.20-5.00); RDW 14.5 % (10.5-14.5); WBC 7.7 thou/uL (4.0-11.0)
[2019-07-14 15:51] LABS: ALBUMIN 3.8 g/dL (3.4-5.0); CALCIUM 9.2 mg/dL (8.5-10.1); CREATININE 1.5 mg/dL (0.6-1.0); POTASSIUM 3.8 mmol/L (3.5-5.1); TOTAL BILIRUBIN 0.7 mg/dL (<0.1-1.0); TOTAL PROTEIN 7.4 g/dL (6.4-8.2)
[2019-07-14 19:00] VITALS: BP 115/57
[2019-07-14 20:02] LABS: FOLIC ACID 35.8 ng/mL (8.6-58.9)
--- NOTE | 2019-07-14 20:13 | NUR ---
PT A&OX4, VSS, PAIN IN LEFT LEG. MEDICATION GIVEN FOR PAIN. PT HAS BKA WITH SKIN INTACT. PATIENT HAS WOUND LEFT FOOT AND COCCYX. ADMISSION ASSESSMENT COMPLETE. NO SIGNS OF DISTRESS. DOCTOR NOTIFIED PATIENT IS IN AND ORDERS GIVEN. WILL CONTINUE TO MONITOR.
[2019-07-15 06:08] LABS: ALBUMIN 3.2 g/dL (3.4-5.0); CREATININE 1.5 mg/dL (0.6-1.0); POTASSIUM 4.2 mmol/L (3.5-5.1); TOTAL BILIRUBIN 0.5 mg/dL (<0.1-1.0); TOTAL PROTEIN 5.8 g/dL (6.4-8.2)
[2019-07-15 07:41] VITALS: BP 116/50
[2019-07-15 08:06] LABS: ABSOLUTE NEUTROPHILS 2.5 thou/uL (1.4-8.2); BASOPHILS 1.2 % (0.0-2.0); EOSINOPHILS 2.9 % (0.0-3.0); HEMATOCRIT 27.6 % (37.0-47.0); HEMOGLOBIN 9.3 gm/dL (12.0-15.0); LYMPHOCYTES 28.4 % (24.0-44.0); MCH 35.7 pg (26.0-34.0); MCHC 33.9 g/dL (28.0-37.0); MCV 105.3 fL (80.0-100.0); MONOCYTES 10.3 % (1.0-8.0); POLYS 57.2 % (36.0-66.0); RBC 2.62 mil/uL (4.20-5.00); RDW 14.6 % (10.5-14.5); WBC 4.4 thou/uL (4.0-11.0)
[2019-07-15 08:35] LABS: PLATELET COUNT 117 thou/uL (150-400)
--- NOTE | 2019-07-15 08:54 | NUR ---
progress pt up with 1 gait to bsc, voiding qs, c/o left knee pain given hydrocodone with effect pt slept after photo taken of her bootom right buttock for non blanchable redness and dryness, barrier cream applied pt turned q2hrs ivf's infusing as ordered continue poc.
--- NOTE | 2019-07-15 10:25 | NUR ---
PT A&OX4, VSS, PAIN IN BLE. PT HAD BURNING WITH IV USE, IV REMOVED AND IV TEAM CALLED D/T ORDER FOR PICC LINE. PT STATES PAIN MEDICATION ISNT CONTROLLING PAIN, WILL CALL DOCTOR. NO SIGNS OF DISTRESS, WILL CONTIUE TO MONITOR.
--- NOTE | 2019-07-15 11:40 | NUR ---
VASCULAR ACCESS TEAM CONSULTED FOR PICC,AFTER REVIEWING PT'S MEDS,HX,LABS, DISCUSSED MIDLINE WITH PT A BETTER OPTION FOR ACCESS. PT IS IN AGREEMENT. MELISSA BASILIC WIDELY PATENT WITH USG,MIDLINE TRIMMED TO 11CM INSERTED PER HOSPITAL P&P TO 0CM WITH BRISK BLOOD RETURN. PT TOLERATED WELL. ML RELEASED FOR IMMEDIATE USE PER PROTOCOL TO ELEANOR HOOK
--- NOTE | 2019-07-15 12:28 | NUR ---
highway design engineer faxed clinicals to [facility], patient had been with them prior to admission.
[2019-07-15 13:43] VITALS: BP 143/57
--- NOTE | 2019-07-15 14:15 | 2DMMODE ---
[facility] [address] [place] [address] 2 D/M-MODE ECHOCARDIOGRAM Name: PASCUAL HAAS Room #: 439-P [facility] IN ..#: [id number] Admission: 07/14/19 Attend Phys: Andre De Anda, Discharge: Date of : 42 Report #: [id number] THIS REPORT FOR: //name// APPROVED REPORT Study performed: 07/15/2019 13:07:56 EXAM: Comprehensive 2D, Doppler, and color-flow Echocardiogram Patient Location: Echo lab Room #: 439 Status: routine BSA: 1.71 HR: 64 bpm BP: 116/50 mmHg Rhythm: NSR Other Information Study Quality: Adequate Technically limited study due to patient unable to tolerate test for long. Not all measurements taken. Indications CAD Hx: CABG, stents, Cardiomyopathy (35-40% in 2015) 2D Dimensions IVSd: 10.58 (7-11mm) LVOT Diam: 20.24 (18-24mm) LVDd: 44.75 mm PWd: 9.39 (7-11mm) Ascending Ao: 36.58 (22-36mm) LVDs: 30.26 (25-40mm) Aortic Root: 30.56 mm Aortic Valve AoV Peak Chris.: 1.99 m/s AO Peak Gr.: 15.81 mmHg LVOT Max P.38 mmHg AO Mean Gr.: 8.60 mmHg AO V2 Mean: 1.38 m/s LVOT Max V: 0.92 m/s AO V2 VTI: 50.28 cm MYCHAL Vmax: 1.49 cm2 Mitral Valve E/A Ratio: 1.3 MV Decel. Time: 181.26 ms MV E Max Chris.: 0.97 m/s MV A Chris.: 0.75 m/s [facility] [place] [place] [address] 2 D/M-MODE ECHOCARDIOGRAM Name: PASCULA HAAS Room #: 439-P [facility] IN ..#: [id number] Admission: 07/14/19 Attend Phys: Andre De Anda, Discharge: Date of : 42 Report #: [id number] MV PHT: 52.56 ms IVRT: 78.43 ms Pulmonary Valve PV Peak Chris.: 0.84 m/s PV Peak Gr.: 2.79 mmHg Pulmonary Vein P Vein S: 0.77 m/s P Vein D: 0.58 m/s P Vein S/D Ratio: 1.33 Tricuspid Valve TR Peak Chris.: 2.54 m/s RAP Estimate: 5.00 mmHg TR Peak Gr.: 26.00 mmHg PA Pressure: 31.00 mmHg Left Ventricle The left ventricle is normal size. There is normal left ventricular wall thickness. Left ventricular systolic function is normal. LVEF is 55%. Moderate diastolic dysfunction is present (pseudonormal filling). Right Ventricle Right ventricle is not well visualized. Atria The left atrium size is normal. Right atrium is not well visualized. Aortic Valve Aortic valve is mild to moderately calcified. Trace aortic regurgitation. There is mild valvular aortic stenosis. Calculated aortic valve area is 1.5 cm2 with maximum pressure gradient of 16 mmHg and mean pressure gradient of 9 mmHg. Mitral Valve The mitral valve is normal in structure. Moderate mitral annular calcification. Mild mitral regurgitation. No evidence of mitral valve stenosis. Tricuspid Valve The tricuspid valve is normal in structure. Mild tricuspid regurgitation. Estimated PAP is 30-35mmHg. Pulmonic Valve The pulmonary valve is normal in structure. Mild pulmonic [facility] [address] [place] [address] 2 D/M-MODE ECHOCARDIOGRAM Name: PASCUAL HAAS Room #: 439-P [facility] IN ..#: [id number] Admission: 07/14/19 Attend Phys: Andre De Anda, Discharge: Date of : 42 Report #: [id number] regurgitation. Great Vessels The aortic root is normal in size. The ascending aorta is normal in size. IVC is normal in size and collapses >50% with inspiration. Pericardium There is no pericardial effusion. <Conclusion> The left ventricle is normal size. LVEF is 55%. Right ventricle is not well visualized. Aortic valve is mild to moderately calcified. Trace aortic regurgitation. There is mild valvular aortic stenosis. Calculated aortic valve area is 1.5 cm2 with maximum pressure gradient of 16 mmHg and mean pressure gradient of 9 mmHg. The mitral valve is normal in structure. Moderate mitral annular calcification. Mild mitral regurgitation. The tricuspid valve is normal in structure. Mild tricuspid regurgitation. Estimated PAP is 30-35mmHg. The pulmonary valve is normal in structure. Mild pulmonic regurgitation. There is no pericardial effusion. <ELECTRONICALLY SIGNED> By: Cesario Guevara MD 07/15/19 1415 1415 1415 Cesario Guevara MD /INF
--- NOTE | 2019-07-15 14:46 | NUR ---
Nutrition: pt admitted with leg edema/cellulitis. Hx CKD stage 4, right buttock ulcer, PVD, CABG. Seen due to wounds present. Stable weights reported around 135# and good appetite, observed > 90% of lunch consumed. Very complimentary of the foods received here. On lasix. Follow for weight changes. Reviewed protein needs/sources with pt. She would like to receive yogurt daily and ensure enlive BID. Pt watches odium and fat intake at home. Low risk with interventions in place.
--- NOTE | 2019-07-15 15:48 | NUR ---
PT ADMITTED RELATED TO CELLULITIS. CM REVIEWED CHART AND SPOKE WITH CARE TEAM. CM MET WITH PT AT BEDSIDE THIS DAY. PT IS A&O X4. CM ROLE INTRODUCED. PT INDICATED SHE LIVES ALONE IN AN APARTMENT WITH 7 STEPS TO ENTER AND NO STEPS INSIDE. 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 PT INDICATED SHE HAD BEEN ON SERVICE WITH [facility] SERVICES STRATIGRAPHY TEACHER. SHE INDICATED THAT SHE PLANS TO RETURN HOME WITH [facility] ONCE MEDICALLY STABLE. CM TO FOLLOW INDICATED WITH DC PLANNING.
[2019-07-15 19:12] VITALS: BP 110/45
--- NOTE | 2019-07-16 03:05 | NUR ---
PATIENT ALERT AND ORIENTED X4. UP IN CHAIR FIRST PART OF THE NIGHT. WALKED TO BATHROOM. ABRAN WRAP ON LOWER EXT. C/O PAIN, MED GIVEN WITH GOOD RESULTS. SLEPT MOST OF NIGHT.
[2019-07-16 06:48] LABS: ALBUMIN 3.1 g/dL (3.4-5.0); CREATININE 1.7 mg/dL (0.6-1.0); POTASSIUM 4.3 mmol/L (3.5-5.1); TOTAL BILIRUBIN 0.3 mg/dL (<0.1-1.0); TOTAL PROTEIN 6.2 g/dL (6.4-8.2)
[2019-07-16 07:15] VITALS: BP 127/53
[2019-07-16 12:13] VITALS: BP 112/53
--- NOTE | 2019-07-16 13:16 | NUR ---
PHYSICIAN ASKED THAT REFERRAL BE SENT TO [facility] FOR POSSIBLE ADMISSION. DC TAPPER BIT ASSISTED IN FAXING REFERRAL. CM CONFIRMED RECIEPT LIAISON INDICATED THAT PT "LOOKS GOOD" AND THEY ARE AWAITING SOME CLINICAL UPDATES. CM INDICATED ANTICPATED DC TOMORROW. CM TO FOLLOW INDICATED WITH DC PLANNING.
[2019-07-16 15:48] VITALS: BP 111/61
--- NOTE | 2019-07-16 17:10 | HC ---
[facility] [place] [address] [place] [address] CONSULTATION Name: PASCUAL HAAS Room #: 439-P [facility] IN ..#: [id number] Admission: 07/14/19 Attend Phys: Andre De Anda MD Discharge: Date of : 41 Report #: [id number] THIS REPORT FOR: //name// CC: Andre De Anda DATE OF SERVICE: 07/15/2019 CHIEF COMPLAINT: Gluteal pressure ulceration and bilateral lower extremity edema. HISTORY OF PRESENT ILLNESS: This is a 79-year-old female patient who was admitted to the hospital with macrocytic anemia and thrombocytopenia. She has had ongoing pressure ulceration to her gluteal region; she states that has been gradually getting better. Additionally, she notes pain and some swelling and crusting involving both lower legs, and I have been asked to see her with regard to wound care. PAST MEDICAL HISTORY: Significant for stable chronic kidney disease, chronic anemia, noncompliance, osteoarthritis of the left knee, peripheral vascular disease and lower extremity edema. ALLERGIES: None. SOCIAL HISTORY: The patient lives alone at home. Does not use alcohol or tobacco. MEDICATIONS: Include Tylenol, amiodarone, ammonium lactate, multivitamin, ferrous sulfate, hydrocodone, Lasix. We recently replaced with torsemide, losartan, tramadol, triamcinolone, metolazone. FAMILY HISTORY: Noncontributory. REVIEW OF SYSTEMS: CONSTITUTIONAL: The patient denies fever, chills or weight loss. NEUROLOGICAL: The patient denies focal weakness, numbness or tingling. EYES: The patient denies visual changes, redness, or drainage. ENT: The patient denies earache, nasal drainage or sore throat. CARDIOVASCULAR: The patient denies chest pain, palpitations or diaphoresis. PULMONARY: The patient denies cough or shortness of breath. GASTROINTESTINAL: The patient denies nausea, vomiting, diarrhea, abdominal pain. ORTHOPEDIC: The patient does note the ulcerations on her gluteal region as well as lower extremities. Other systems in a 14-point review of systems are negative. PHYSICAL EXAMINATION: [facility] [address] [place] [address] CONSULTATION Name: PASCUAL HAAS Room #: 439-P [facility] IN ..#: [id number] Admission: 07/14/19 Attend Phys: Andre De Anda MD Discharge: Date of : 41 Report #: [id number] VITAL SIGNS: At this time include temperature 97.5, pulse 61, respiratory rate of 18, blood pressure 143/57. GENERAL: This is a chronically ill-appearing female patient who appears to be in minimal distress. HEENT: Head normocephalic. Nose and throat are clear. NECK: Supple. LUNGS: Diminished. HEART: Regular rhythm. ABDOMEN: Soft, nontender. EXTREMITIES: Lower gluteal region demonstrates what appeared to be some small areas of crusting and erythema, which appeared to be healing pressure ulcers to the right gluteal region. Lower extremities demonstrate diminished distal pulses, although she does have good capillary refill. She has 2-3+ edema bilaterally, venous stasis dermatitis and scattered superficial ulcerations to both lower legs. NEUROLOGIC: The patient is alert and oriented and appropriate. LABORATORY DATA: Includes sodium 140, potassium 4.2, chloride 104, BUN 30, creatinine 1.5, glucose of 88, total protein 5.8, albumin 3.2. White blood cell count 4.4 with a hemoglobin of 9.3, hematocrit of 27.6. CLINICAL IMPRESSION: 1. Pressure ulceration of the right gluteal region, stage III, appear to be healing. 2. Bilateral venous stasis dermatitis to the lower extremities. 3. Cellulitis, bilateral lower extremities. 4. Thrombocytopenia and macrocytic anemia. RECOMMENDATIONS: At this point in time, we will recommend topical AmLactin cream, Xeroform gauze, Kerlix, Conner wraps to both lower extremities to help control edema. We will also recommend elevation of her legs while either in a chair or in bed as much as possible to reduce edema. Recommend moisture barrier cream to the sacral gluteal region daily and p.r.n. Ongoing nutritional support would be appropriate as well as continuation of current medications. I appreciate being asked to see her in consultations. <ELECTRONICALLY SIGNED> By: Rd Chinchilla MD 07/16/[id number] MD /nt
[2019-07-16 19:50] VITALS: BP 122/55
[2019-07-17 01:25] VITALS: BP 144/68
--- NOTE | 2019-07-17 01:42 | NUR ---
Called to room by FINANCIAL SERVICES COUNSELOR as pt. became weak on the way to the bathroom. Pt. assisted to the chair. Pt. verbalized that she has not been eating very much and she feels weak. VS stable. Pt. rested for about five minutes in chair and then assisted to the bathroom with walker and gait belt. Pt. also ex- pressed that this is the most activity she has had. She was able to ambulate back to bed with assistance. Pt. expressed that she felt better. Snack was given and encouraged. She also c/o bilateral leg pain and po pain med given (see emar).
--- NOTE | 2019-07-17 04:01 | NUR ---
Pt. resting quietly in bed with eyes closed. Pain relief noted after po pain medication. No further complaints. Bed alarm is on.
--- NOTE | 2019-07-17 07:27 | NUR ---
Pt. alert and oriented. Slept fairly well during the night. No noted confusion and cooperative with care. Bed alarm is on.
[2019-07-17 09:35] VITALS: BP 99/52
[2019-07-17 10:09] LABS: ABSOLUTE NEUTROPHILS 2.7 thou/uL (1.4-8.2); BASOPHILS 0.7 % (0.0-2.0); EOSINOPHILS 3.2 % (0.0-3.0); HEMOGLOBIN 9.5 gm/dL (12.0-15.0); LYMPHOCYTES 25.9 % (24.0-44.0); MCH 35.6 pg (26.0-34.0); MCHC 33.8 g/dL (28.0-37.0); MCV 105.1 fL (80.0-100.0); MONOCYTES 6.5 % (1.0-8.0); PLATELET COUNT 121 thou/uL (150-400); POLYS 63.7 % (36.0-66.0); RBC 2.66 mil/uL (4.20-5.00); RDW 14.2 % (10.5-14.5); WBC 4.3 thou/uL (4.0-11.0)
--- NOTE | 2019-07-17 10:13 | NUR ---
PT RESTING IN BED SBA TO BSC PT URINATED W/O PAIN OR DISCOMFORT. TOOK AM MEDS AND HAS IV ABT INFUSING. DRANK BREAKFAST SUPPLEMENT.
[2019-07-17 10:23] LABS: ALBUMIN 3.2 g/dL (3.4-5.0); CALCIUM 8.8 mg/dL (8.5-10.1); CREATININE 1.7 mg/dL (0.6-1.0); POTASSIUM 4.2 mmol/L (3.5-5.1); TOTAL BILIRUBIN 0.2 mg/dL (<0.1-1.0); TOTAL PROTEIN 5.8 g/dL (6.4-8.2)
[2019-07-17] MEDS ORDERED: HYDROCODON-ACE1 EAC7 PO ×2 (15:07)
[2019-07-17] MEDS ORDERED: DEMADEX20 MG PO (15:07)
[2019-07-17] MEDS ORDERED: TRAZODONE HCL50 MG PO (15:07)
[2019-07-17] MEDS ORDERED: LORAZEPAM 0.50.5 MG PO (15:07)
--- NOTE | 2019-07-17 16:06 | NUR ---
PT IS TO DISCHARGE TO [facility] THIS DAY. CHART COPY ORDERED. ORDERS TO BE FAXED ONCE COMPLETED TO . REPORT TO BE CALLED TO . PT TO BE TRANSPORTED [facility]IA [facility] AT 1800. NO OTHER CM INTERVENTION INDICATED. CASE CLOSED.
--- NOTE | 2019-07-17 16:08 | NUR ---
REFERRAL FAXED TO [facility]. [facility]. PATIENT IS READY FOR DISCHARGE TODAY. PER ATTENDING, HE WILL COMPLETE DISCHARGE ORDERS AND WILL FAX TO [facility] UPON COMPLETION. CHART COPY COMPLETED PER RADIATOR CORE TESTER. CONTACT NUMBER AND FAX NUMBER TO BE PLACED IN UNIT SW DISCHARGE NOTE FOR ATTENDING REFERENCE. TRANSPORTATION ARRANGED PER [facility] ADMISSIONS, 1800 HOURS. UNIT SW NOTIFIED. CONTACT NUMBER FOR REPORT PROVIDED ON DISCHARGE ORDERS. [facility] MAIN CONTACT NUMBER IS [phone] FAX NUMBER [phone] [facility] CONTACT NUMBER IS [phone] [facility] CONTACT NUMBER IS [phone].
== END 2019-07-17 18:38 | DRG 602 ==
LOC: ULTRA 12:54 → 4S 12:55
PROVIDERS: ADMIT Internal Medicine
PROC: 05HY33Z Insertion of Infusion Device into Upper Vein, Percutaneous Approach (ICD-10-PCS; principal; 2019-07-15)
DX: L03.116 Cellulitis of left lower limb (principal); L89.313 Pressure ulcer of right buttock, stage 3; I50.30 Unspecified diastolic (congestive) heart failure; N18.4 Chronic kidney disease, stage 4 (severe); I13.0 Hypertensive heart and chronic kidney disease with heart failure and stage 1 through stage 4 chronic kidney disease, or unspecified chronic kidney disease; L03.115 Cellulitis of right lower limb; M79.89 Other specified soft tissue disorders; M17.12 Unilateral primary osteoarthritis, left knee; I73.9 Peripheral vascular disease, unspecified; Z60.2 Problems related to living alone; I87.2 Venous insufficiency (chronic) (peripheral); D69.6 Thrombocytopenia, unspecified; D53.9 Nutritional anemia, unspecified; I48.0 Paroxysmal atrial fibrillation; M43.6 Torticollis; Z79.899 Other long term (current) drug therapy; Z91.19 Patient's noncompliance with other medical treatment and regimen
CPT/HCPCS: 10102; 27000

== ENCOUNTER 2019-08-23 16:13 | Inpatient (IN) | payer OTHER ==
[~2019-08-23] VITALS: Ht 167.6 cm; Wt 62.1 kg
[~2019-08-23 16:13] MED LIST changes: +DEMADEX20 MG PO; +LORAZEPAM 0.50.5 MG PO; +TRAZODONE HCL50 MG PO
[2019-08-23 16:17] VITALS: BP 144/60
--- NOTE | 2019-08-23 16:59 | NUR ---
IV TEAM PAGED FOR SERVICE-
[2019-08-23 19:05] LABS: URINE BILIRUBIN NEGATIVE (Negative); URINE BLOOD NEGATIVE (Negative); URINE CLARITY CLEAR; URINE COLOR YELLOW; URINE GLUCOSE-RANDOM* NEGATIVE (Negative); URINE KETONES NEGATIVE (Negative); URINE LEUKOCYTES-REFLEX TRACE (Negative); URINE NITRITE-REFLEX NEGATIVE (Negative); URINE PROTEIN (DIPSTICK) NEGATIVE (Negative); URINE SPECIFIC GRAVITY <= 1.005 (1.005-1.035); URINE UROBILINOGEN 0.2 E.U./dl (0.2-1.0)
[2019-08-23 19:05] LABS: ABSOLUTE NEUTROPHILS 4.3 thou/uL (1.4-8.2); BASOPHILS 0.9 % (0.0-2.0); EOSINOPHILS 2.1 % (0.0-3.0); HEMATOCRIT 32.5 % (37.0-47.0); HEMOGLOBIN 10.7 gm/dL (12.0-15.0); LYMPHOCYTES 16.5 % (24.0-44.0); MCH 35.1 pg (26.0-34.0); MCHC 33.1 g/dL (28.0-37.0); MONOCYTES 8.3 % (1.0-8.0); PLATELET COUNT 103 thou/uL (150-400); POLYS 72.2 % (36.0-66.0); RBC 3.06 mil/uL (4.20-5.00); RDW 13.7 % (10.5-14.5)
[2019-08-23 19:09] LABS: ANION GAP < 0 mmol/L (7-16); BUN 27 mg/dL (7-18); CALCIUM 9.2 mg/dL (8.5-10.1); CHLORIDE 96 mmol/L (98-107); CO2 27 mmol/L (21-32); CREATININE 1.4 mg/dL (0.6-1.0); GLUCOSE 107 mg/dL (74-106); POTASSIUM 3.8 mmol/L (3.5-5.1); SODIUM 121 mmol/L (136-145)
[2019-08-23 19:15] LABS: ALBUMIN 3.4 g/dL (3.4-5.0); SGOT 24 U/L (15-37); SGPT 10 U/L (30-65); TOTAL BILIRUBIN 0.4 mg/dL (<0.1-1.0); TOTAL PROTEIN 6.9 g/dL (6.4-8.2)
[2019-08-23 21:22] VITALS: BP 159/72
[2019-08-23 21:47] VITALS: BP 159/83
[2019-08-24 01:38] VITALS: BP 123/63
[2019-08-24 08:00] VITALS: BP 132/83
--- NOTE | 2019-08-24 08:51 | NUR ---
admit pt admitted to room 454 for bilateral lower leg cellulitis and edema. oriented to room call light system and poc. iv antibiotics administered as ordered. both leg cleansed with saline xeroform gauze abd's and kerlix applied. order for hydrocodone for left leg pain obtained. continue to monitor
[2019-08-24 15:00] VITALS: BP 107/51
[2019-08-24 19:39] VITALS: BP 132/66
--- NOTE | 2019-08-24 20:03 | NUR ---
ASSUMED CARE OF PATIENT AT 0715, PATIENT ALERT AND ORIENTED X 4. PATIENT UP WITH ASSIST X 1 WITH GAIT BELT AND WALKER. PATIENT C/O PAIN WITH LEFT LEG, RECEIVED HYDROCODONE X 2 THIS SHIFT, WITH PARTIAL RELIEF. PATIENT HAS RIGHT AC IV IN PLACE, RECEIVED IV ANTIBIOTICS THIS SHIFT. BILATERAL LEG DRESSING C/D/I, PATIENT REFUSED DRESSING CHANGES, OPTIFORM TO RIGHT BUTTOCK. PATIENT RECEIVED IV LASIX 40 MG THIS SHIFT, AND URINATED X 2 BY END OF SHIFT.PATIENT UP TO THE CHAIR MOST OF THE DAY. WILL CONTINUE TO MONITOR.
--- NOTE | 2019-08-25 00:46 | NUR ---
PT. REFUSED DRESSING CHANGE. DRESSING STILL REMAINS CLEAN AND INTACT. WOUND WAS WEEPING FROM BOTTOM, BUT PT. DID NOT WANT ME TO CHANGE THE DRESSING BECAUSE THE DRESSING STILL REMAINS INTACT AND WOULD LIKE WOUND CARE TO REDRESS IT IN MORNING. I EXPLAINED TO THE PT. THAT IF THE DRESSING BECAME WET THAT I WOULD HAVE TO CHANGE IT AND SHE AGREED.
--- NOTE | 2019-08-25 04:29 | NUR ---
PT. HAS INCREASED CONFUSION THROUGHOUT NIGHT. REFUSES TO FOLLOW SOME DIRECTIONS. CAN ANSWER ORIENTATION QUESTIONS CORRECTLY, BUT IS FORGETFUL. REFUSING TO LET NURSE CHANGE DRESSING. ASSESSMENT CHARTED, CONTINUE TO FOLLOW POC. WILL CONTINUE TO MONITOR.
[2019-08-25 07:35] VITALS: BP 142/79
[2019-08-25 11:13] VITALS: BP 147/100
--- NOTE | 2019-08-25 13:33 | NUR ---
DISCHARGE PLANNING. [facility] RECOMMENDED AT DISCHARGE. PATIENT HAS BEEN TO [place] IN THE PAST AND IS AGREEABLE IN RETURNING ONCE MEDICALLY READY FOR DISCHARGE. PATIENT REFERRAL FAXED TO [facility] PER REQUEST. CALL PLACED TO [facility] TO NOTIFY OF PATIENTS DISCHARGE NEEDS. AWAITING RESPONSE. FOLLOWINT.
[2019-08-25 14:57] VITALS: BP 118/59
--- NOTE | 2019-08-25 16:26 | NUR ---
PT ADMITTED RELATED TO CELLULITIS. CM REVIEWED CHART AND SPOKE WITH CARE TEAM. CM MET WITH PT AT BEDSIDE THIS DAY. PT IS A&O X4. CM ROLE INTRODUCED. PT FAMILIAR TO CM FROM PERVIOUS ADMISSIONS. SH LIVES ALONE IN AN APARTMENT WITH 7 STEPS TO ENTER AND NONE INSIDE. PT HAS A FWW FOR USE AT HOME. PT HAS HAD [facility] IN THE PAST AND HAS GONE TO [facility]. DR. SAHNI WANTS PT TO GO BACK TO [facility] REFERRAL SENT HE INDICATED PT WOULD BE READY TO DC SUNDAY AM. CM TO FOLLOW INDICATED WITH DC PLANNING.
[2019-08-25 19:48] VITALS: BP 137/69
--- NOTE | 2019-08-25 20:17 | NUR ---
PT A&OX4, VSS, PAIN IN LEGS. PAIN MEDIATION GIVEN. PATIENT UP TO RECLINER. DRESSING CHANGED D/T LEGS WEEPING, AWAITING WOUND CARE CONSULT. NO SIGNS OF DISTRESS. PATIENT HAS LOW APPETITE. WILL CONTINUE TO MONITOR.
--- NOTE | 2019-08-26 04:21 | NUR ---
assessment completed. pt iv infiltrated. nurse tried x1 to insert a new iv but was unsuccessful. pt said she was in so much pain and sick of getting stuck all the time. nursing supervisor stone was called and she inserted iv on pt's right forearm. pt looking forward to getting a picc line placed today. Dr blandon called to check on pt, and confirmed orders for a picc placement. pts pain was well managed with current regimen. pt gets out of bed with 1 assist to the bsc. no s/s of distress. call brady within reach. fall prec in place. will cont to monitor
[2019-08-26 05:48] LABS: ABSOLUTE NEUTROPHILS 3.6 thou/uL (1.4-8.2); BASOPHILS 0.8 % (0.0-2.0); EOSINOPHILS 2.8 % (0.0-3.0); HEMATOCRIT 27.6 % (37.0-47.0); HEMOGLOBIN 9.1 gm/dL (12.0-15.0); LYMPHOCYTES 17.1 % (24.0-44.0); MCH 35.4 pg (26.0-34.0); MCHC 33.1 g/dL (28.0-37.0); MCV 106.9 fL (80.0-100.0); MONOCYTES 9.8 % (1.0-8.0); PLATELET COUNT 92 thou/uL (150-400); POLYS 69.5 % (36.0-66.0); RBC 2.58 mil/uL (4.20-5.00); RDW 13.7 % (10.5-14.5); WBC 5.2 thou/uL (4.0-11.0)
[2019-08-26 06:05] LABS: ALBUMIN 2.8 g/dL (3.4-5.0); CALCIUM 8.5 mg/dL (8.5-10.1); CREATININE 1.7 mg/dL (0.6-1.0); TOTAL PROTEIN 5.9 g/dL (6.4-8.2)
[2019-08-26 09:00] VITALS: BP 119/53
--- NOTE | 2019-08-26 09:58 | NUR ---
Nutrition: pt admitted with leg cellulitis and seen per wound consult. Pt has been ordering meals and eats variable amounts from 25-100% of meals. Enjoys the option of ordering meals. Reports she is not a big eater. Obtained food preferences. Requests yogurt BID and enjoys ensure daily at home, will order. Protein needs/sources reviewed. Pt voiced understanding.
--- NOTE | 2019-08-26 12:45 | NUR ---
VASCULAR ACCESS TEAM CONSULTED FOR PICC PLACEMENT. PT'S LABS,MEDS,HISTORY,ORDER VERIFIED. DISCUSSED BENEFITS AND RISK OF PICC WITH PT,VERBALIZED UNDERSTANDING. CONSENT SIGNED. ATTEMPTED MELISSA BASILIC AND BRACHIAL ,ABLE TO PASS GUIDEWIRE BUT NOT PICC CATH. PT STATED SHE FELT MUSCLE SPASMS IN RIGHT ARM. NEW KIT OBTAINED AND PATITO BASILIC WAS WIDELY PATENT WITH USG,4FR SL PICC TRIMMED TO 45CM INSERTED TO 0CM WITH BRISK BR. STAT CXR ORDERED.
--- NOTE | 2019-08-26 13:25 | NUR ---
cxr confirmed picc placement, released for immediate use per protocol to Candy HOOK
[2019-08-26 15:08] VITALS: BP 95/46
--- NOTE | 2019-08-26 15:28 | NUR ---
ANTICIPATE DC TO [facility] TOMORROW. CM TO FOLLOW INDICATED WITH DC PLANNING.
[2019-08-26 19:35] VITALS: BP 85/42
[2019-08-26 19:45] VITALS: BP 99/43
--- NOTE | 2019-08-26 19:52 | NUR ---
ASSUMED CARE AROUND 1914. LOW BP 99/43 ADDRESSED TO VIA TELEPHONE. LASIX ON HOLD FOR NOW. PT NON-SYMPTOMATIC AT THIS TIME. PER PHYSICIAN, WILL CONT TO MONITOR FOR ANY CHANGES IN CONDITION.
--- NOTE | 2019-08-26 20:00 | NUR ---
Assumed Pt care @ 0700. Pt A&O x 4. PICC line inserted and CXR confirmed in place. Assessment completed, VSS. Dr. De Anda here. Possible DC 08/27 to [facility]. Pt experiences pain on left leg and has sacral wound. Pt is weak and needs assistance to commode.
--- NOTE | 2019-08-27 03:56 | NUR ---
ASSUMED CARE AROUND 193. AXOX3. PERSISRTENT PAIN MANAGED PER MD ORDER. NO S/S ACUTE DISTRESS NOTED OR REPORTED AT THIS TIME. WILL CONT TO MONITOR FOR ANY CHANGES IN CONDITION.
[2019-08-27 04:11] VITALS: BP 127/56
[2019-08-27 06:22] LABS: HEMATOCRIT 25.1 % (37.0-47.0); HEMOGLOBIN 8.3 gm/dL (12.0-15.0); MCH 35.1 pg (26.0-34.0); MCHC 33.2 g/dL (28.0-37.0); MCV 105.6 fL (80.0-100.0); RBC 2.38 mil/uL (4.20-5.00); RDW 13.6 % (10.5-14.5); WBC 5.6 thou/uL (4.0-11.0)
[2019-08-27 06:37] LABS: ALBUMIN 2.6 g/dL (3.4-5.0); CALCIUM 8.6 mg/dL (8.5-10.1); CREATININE 1.8 mg/dL (0.6-1.0); POTASSIUM 3.8 mmol/L (3.5-5.1); TOTAL BILIRUBIN 0.6 mg/dL (<0.1-1.0); TOTAL PROTEIN 5.6 g/dL (6.4-8.2)
[2019-08-27 08:27] VITALS: BP 110/51
--- NOTE | 2019-08-27 10:42 | NUR ---
ASSUMED CARE APPROX 0700, PT A&OX4, VSS, DENIES PAIN. APPROX 0930 PATIENT CONFUSED AND STATING SHE WAS IN THE WRONG ROOM, ASKING WHO ATE HER FOOD, AND THOUGHTS NOT COHERENT. PATIENT NOT IN DISTRESS. DOCTOR NOTIFIED AND ABG LAB ORDERED. WILL CONTINUE TO MONITOR.
[2019-08-27 11:43] LABS: BE(vivo) 2.4 mmol/L (-2 to +3); HCO3 27.1 mmol/L (22.0-26.0); PCO2 42.5 mmHg (35.0-45.0); PO2 78.7 mmHg (80.0-100.0); pH 7.423 (7.360-7.450); sO2 95.8 % (92.0-98.0)
--- NOTE | 2019-08-27 13:58 | NUR ---
PHYSICIAN INDICATED THAT PT ISN'T MEDICALLY STABLE FOR DC TO [facility] TODAY. CM TO CONTINUE TO FOLLOW INIDCATED WITH DC PLANNING.
[2019-08-27 15:26] VITALS: BP 147/70
[2019-08-27 19:56] VITALS: BP 143/48
[2019-08-28 05:42] LABS: HEMATOCRIT 25.5 % (37.0-47.0); HEMOGLOBIN 8.4 gm/dL (12.0-15.0); MCH 35.2 pg (26.0-34.0); MCHC 33.1 g/dL (28.0-37.0); MCV 106.2 fL (80.0-100.0); RBC 2.4 mil/uL (4.20-5.00); RDW 13.4 % (10.5-14.5); WBC 5.3 thou/uL (4.0-11.0)
[2019-08-28 05:52] LABS: CALCIUM 8.9 mg/dL (8.5-10.1); CREATININE 1.5 mg/dL (0.6-1.0); POTASSIUM 3.9 mmol/L (3.5-5.1)
[2019-08-28 06:06] LABS: % SATURATION 17 % (20-39); IRON 25 ug/dL (50-170); TIBC 143 ug/dL (250-450)
--- NOTE | 2019-08-28 07:26 | NUR ---
ASSUMED CARE AROUND 1915. AXOX2 WITH OCCASIONAL CONFUSION. ADRRESSED TO AT BEDSIDE. PER MD, MD WAS ALREADY AWARE THAT HE'LL ARRANGE OUTPATUENT CONSULTS FOR FURTHER EVALUATION. FREQUENT VISUAL CHECKS AND ALL NEED ATTENDED. BLE DRESSING CDI. C/O TOE PAIN D/T LONG KERATINEOUS TOENAILS. ,DPM CONSULTED AND CALL PLACED THIS AM AND DAY RN UPDATED. CARE TRANSFERRED TO DAY RN AT THIS TIME.
[2019-08-28 08:51] VITALS: BP 123/61
--- NOTE | 2019-08-28 11:47 | NUR ---
WOUND CARE F/U rounding w/ DR NICHOLE AND JENISE CLIENT SUPPORT CONSULTANT, wounds assessed, c/o some pain when removing drsg, taking pain meds, c/o heel pain, dr ordering prafo boots, less edema, healing, see process intervention for wound details RECOMMENDATION; cont current tx
--- NOTE | 2019-08-28 11:57 | NUR ---
PT A&OX4, VSS, PAIN IN BILAT LE. PAIN MEDICATION GIVEN. PATIENT ABLE TO WALK WITH WALKER ONE ASSIST TO BATHROOM. PATIENT COOPERATIVE, NOT IMPULSIVE AND NO APPARENT HALLUCINATIONS. WOUND DRESSING CHANGE COMPLETED. PATIENT BETTER APPETITE. NO SIGNS OF DISTRESS, WILL CONTINUE TO MONITOR.
[2019-08-28 14:49] VITALS: BP 107/51
[2019-08-28 20:00] VITALS: BP 110/60
--- NOTE | 2019-08-29 02:26 | NUR ---
ASSESSMENT: PT REMAIN ALERT AND ORIENT TO PERSON AND SOMETIMES PLACE. DR SAHNI AT THE BEDSIDE AT THE BEGINNING OF THE SHIFT. PT'S ABRAN LEGS ARE WRAPPED IN MARLA WRAP AND KERLIX R/T ABRAN CELLULITIS. C/O LEG PAIN BUT STATES THAT THE PAIN MEDICATION IS ADEQUATE RELIEF FOR PAIN. PT SLEEPS ALOT BUT IS EASY TO AROUSE. MRSA/PCR SWAB SENT TO LAB,. AWAITING RESULTS. VSS, AFEBRILE. UP TO BR WITH SBA, GAIT UNSTEADY. PODIATRY WAS IN TO CLIP PT'S TOE NAILS EARLIER IN THE DAY. POSSIBLE DC TO REHAB ON TOMORROW. LEFT UPPER ARM PICC, PATENT AND IVF'S INFUSING WITHOUT DIFFICULTY. SLOW PROGRESS TOWARDS DC GOALS, WILL CONTINUE TO MONITOR.
[2019-08-29 05:23] LABS: HEMOGLOBIN 7.8 gm/dL (12.0-15.0); MCH 34.9 pg (26.0-34.0); MCHC 32.4 g/dL (28.0-37.0); MCV 107.7 fL (80.0-100.0); RBC 2.23 mil/uL (4.20-5.00); RDW 13.9 % (10.5-14.5); WBC 4.5 thou/uL (4.0-11.0)
[2019-08-29 05:41] LABS: CALCIUM 8.4 mg/dL (8.5-10.1); CREATININE 1.5 mg/dL (0.6-1.0); POTASSIUM 3.8 mmol/L (3.5-5.1)
[2019-08-29 08:00] VITALS: BP 139/56
--- NOTE | 2019-08-29 08:14 | HC ---
[facility] [place] [address] CONSULTATION Name: PASCUAL HAAS Room #: 454-P ADM IN ..#: [id number] Admission: 08/23/19 Attend Phys: Andre De Anda MD Discharge: Date of : 41 Report #: [id number] THIS REPORT FOR: //name// CC: Kira De Anda DATE OF SERVICE: 08/28/2019 INTRODUCTION: The patient is a 79-year-old female who is being seen for general nail care as it pertains to severe onychodystrophy. The patient has been admitted with multiple health conditions including kidney disease, cellulitis of both lower legs and long history of chronic lower extremity edema. She also has decubitus ulcer involving her gluteal region and ulcerations secondary to the cellulitis on her legs. Her nails had been in need of debridement. She states that she had been receiving a general nail care in the past; however, it is obvious that this has not taken place for over a year. PAST MEDICAL HISTORY: Otherwise, noncontributory. She denies a history of diabetes and with regard to her feet has had no history of foot complications other than her nails. Pedal exam; dorsalis pedis, posterior tibial pulses are graded 1/4, capillary refill time is within normal limits. She has a severe sequelae associated with chronic lower extremity edema in both legs. Currently being treated for cellulitis and managed for wounds by our wound care specialists. She has compression wraps on both legs down to the ankle level. Neurologically, she is grossly intact to all sensory stimulus including sharp, dull, proprioceptive and vibratory sensations. Her toenails are severely elongated, thickened, show clinical evidence of onychomycosis in varying degrees. Many of her nails are several centimeters in length. Her right foot has several toenails that are cutting into and impinging on adjacent toes. There is no acute findings; however, nails were aggressively debrided. No additional underlying pathology was noted. IMPRESSION: 1. Severe lower extremity edema. 2. Onychogryphosis associated with onychomycosis, bilateral feet. PLAN: The patient's nails were debrided as mentioned. No additional treatment was required. I would be pleased to follow up with her upon request. <ELECTRONICALLY SIGNED> By: Kirill Mackenzie DPM 08/29/1913 1647 53 Kirill Mackenzie DPM /nt
[2019-08-29 09:10] LABS: FOLIC ACID 45.9 ng/mL (8.6-58.9)
[2019-08-29 09:30] VITALS: BP 139/56
[2019-08-29] MEDS ORDERED: VOLTAREN GEL 1100 G1 TOP (10:27)
[2019-08-29] MEDS ORDERED: AMMONIUM LACTA226 GM TOP (10:27)
--- NOTE | 2019-08-29 11:06 | NUR ---
Assumed pt care this am, pt is very confused and only alert to self. Wound care and dressiong change done. Pain is managed with medications with partial relief noted. Pt is requesting for security to come up to get her belongings.
[2019-08-29] MEDS ORDERED: VENOFER20 MG/ML IV (13:10)
[2019-08-29] MEDS ORDERED: KEFLEX500 M2 PO (13:20)
[2019-08-29] MEDS ORDERED: NORCO 5-325 TA1 EAC1 PO (13:20)
[2019-08-29] MEDS ORDERED: TORSEMIDE20 MG PO (13:20)
--- NOTE | 2019-09-07 11:57 | HC ---
[facility] [place] [address] CONSULTATION Name: PASCUAL HAAS Room #: 454-P [facility]#: [id number] Admission: 08/23/19 Attend Phys: Andre De Anda MD Discharge: 08/29/19 Date of : 42 Report #: [id number] THIS REPORT FOR: //name// CC: Tonyrowena Lilli De Anda DATE OF SERVICE: 08/26/2019 HISTORY OF PRESENT ILLNESS: The patient is a 79-year-old female patient who was admitted to the hospital with progressive lower extremity edema. She has developed some blistering and some redness as well as clear fluid draining from the area and I have been asked to see her with regard to wound care. She was seen in the Emergency Department. She had venous Dopplers that ruled out DVT, but was noted to have cellulitis. PAST MEDICAL AND SURGICAL HISTORY: Significant for bilateral lower extremity edema, previous right hip replacement, previous cholecystectomy and hysterectomy. She has had a coronary artery bypass disease and previous pelvic fracture. SOCIAL HISTORY: Negative for alcohol or tobacco use. FAMILY HISTORY: Noncontributory. CURRENT MEDICATIONS: Include hydrocodone, trazodone, lorazepam, torsemide, atorvastatin, nystatin, ammonium lactate and cyanocobalamin. ALLERGIES: No known drug allergies. REVIEW OF SYSTEMS: CONSTITUTIONAL: The patient denies fever, chills or weight loss. NEUROLOGICAL: The patient denies focal weakness. ENT: The patient denies earache, nasal drainage, sore throat. CARDIOVASCULAR: The patient denies chest pain or palpitations or diaphoresis. PULMONARY: The patient denies cough or shortness of breath. GASTROINTESTINAL: The patient denies nausea, vomiting, diarrhea or abdominal pain. ORTHOPEDIC: The patient has pain, swelling and redness to both lower extremities. Other systems in a 14-point review of systems are negative. PHYSICAL EXAMINATION: VITAL SIGNS: At this time include temperature 36.7, pulse 71, respiratory rate 20, blood pressure 113/56. GENERAL: This is a chronically ill-appearing female patient who appears to be in minimal distress. [address] [address] CONSULTATION Name: PASCUAL HAAS Room #: 454-P [facility] IN M.R.#: [id number] Admission: 08/23/19 Attend Phys: Andre De Anda MD Discharge: 08/29/19 Date of : 42 Report #: [id number] HEENT: Head normocephalic. Nose and throat are clear. NECK: Supple. LUNGS: Diminished. HEART: Regular rhythm without murmur. ABDOMEN: Soft. Bowel sounds present. EXTREMITIES: Lower extremities demonstrates diminished, but yet palpable distal pulses. She has 2-3+ edema. A few bulla are present and some serous drainage through the skin with surrounding erythema consistent with cellulitis. CLINICAL IMPRESSION: 1. Venous dermatitis, bilateral lower extremities. 2. Cellulitis, bilateral lower extremities. 3. Macrocytic anemia. 4. Stage 3 pressure ulcer to the right gluteal region noted on physical examination. RECOMMENDATIONS: We will recommend moisture barrier cream to the gluteal region daily. AmLactin, Xeroform gauze, Kerlix, Conner wraps to bilateral lower extremities. We will recommend elevation of lower extremities. Nutrition and elevation as well as continuation of current medications. I appreciate being asked to see her in consultation. <ELECTRONICALLY SIGNED> By: Rd Chinchilla MD 09/07/[id number] Chinchilla MD /nt
== END 2019-08-29 17:18 | DRG 602 ==
LOC: ER 16:13 → 4W 19:57 → EROBS 19:57 → 4W 21:31
PROVIDERS: Emergency Medicine; Internal Medicine; ADMIT Internal Medicine
PROC: 02HV33Z Insertion of Infusion Device into Superior Vena Cava, Percutaneous Approach (ICD-10-PCS; principal; 2019-08-26)
PROC: 0HBRXZZ Excision of Toe Nail, External Approach (ICD-10-PCS; 2019-08-28)
DX: L03.115 Cellulitis of right lower limb (principal); L89.313 Pressure ulcer of right buttock, stage 3; E43 Unspecified severe protein-calorie malnutrition; N18.4 Chronic kidney disease, stage 4 (severe); I12.9 Hypertensive chronic kidney disease with stage 1 through stage 4 chronic kidney disease, or unspecified chronic kidney disease; L03.116 Cellulitis of left lower limb; B35.1 Tinea unguium; I25.10 Atherosclerotic heart disease of native coronary artery without angina pectoris; D53.9 Nutritional anemia, unspecified; L30.9 Dermatitis, unspecified; F03.90 Unspecified dementia, unspecified severity, without behavioral disturbance, psychotic disturbance, mood disturbance, and anxiety; Z68.22 Body mass index [BMI] 22.0-22.9, adult; Z95.1 Presence of aortocoronary bypass graft; Z95.5 Presence of coronary angioplasty implant and graft; Z90.49 Acquired absence of other specified parts of digestive tract; Z90.710 Acquired absence of both cervix and uterus; Z90.89 Acquired absence of other organs; Z79.899 Other long term (current) drug therapy
CPT/HCPCS: 10040; 27000

== ENCOUNTER 2019-09-17 19:46 | Inpatient (IN) | payer OTHER ==
[~2019-09-17] VITALS: Ht 165.1 cm; Wt 57.2 kg
[~2019-09-17 19:46] MED LIST changes: +KEFLEX500 M2 PO; +NORCO 5-325 TA1 EAC1 PO; +VENOFER20 MG/ML IV; +VOLTAREN GEL 1100 G1 TOP
[2019-09-17] MEDS ORDERED: NORCO 5-325 TA1 EAC1 PO (19:57)
[2019-09-17] MEDS ORDERED: LIDODERM1 EACH TOP (19:59)
[2019-09-17] MEDS ORDERED: HALDOL5 MG/1 ML IM (20:00)
[2019-09-17] MEDS ORDERED: CALMOSEPTINE OI71 GM TOP (20:00)
[2019-09-17 20:01] VITALS: BP 125/67
[2019-09-17 20:13] LABS: ABSOLUTE NEUTROPHILS 8.3 thou/uL (1.4-8.2); BASOPHILS 0.5 % (0.0-2.0); EOSINOPHILS 0.9 % (0.0-3.0); HEMATOCRIT 28.9 % (37.0-47.0); HEMOGLOBIN 9.6 gm/dL (12.0-15.0); LYMPHOCYTES 7.6 % (24.0-44.0); MCH 35.1 pg (26.0-34.0); MCHC 33.2 g/dL (28.0-37.0); MCV 105.6 fL (80.0-100.0); MONOCYTES 7.6 % (1.0-8.0); PLATELET COUNT 193 thou/uL (150-400); POLYS 83.4 % (36.0-66.0); RBC 2.74 mil/uL (4.20-5.00); RDW 14.3 % (10.5-14.5); WBC 9.9 thou/uL (4.0-11.0)
[2019-09-17 20:28] LABS: URINE BILIRUBIN NEGATIVE (Negative); URINE BLOOD 1+ (Negative); URINE CLARITY CLEAR; URINE COLOR YELLOW; URINE GLUCOSE-RANDOM* NEGATIVE (Negative); URINE KETONES NEGATIVE (Negative); URINE NITRITE-REFLEX NEGATIVE (Negative); URINE PROTEIN (DIPSTICK) TRACE (Negative); URINE SPECIFIC GRAVITY 1.015 (1.005-1.035); URINE UROBILINOGEN 0.2 E.U./dl (0.2-1.0)
[2019-09-17 20:31] LABS: CALCIUM 9.5 mg/dL (8.5-10.1); CREATININE 1.2 mg/dL (0.6-1.0); POTASSIUM 5.1 mmol/L (3.5-5.1)
[2019-09-17 20:37] LABS: ALBUMIN 3.6 g/dL (3.4-5.0); TOTAL BILIRUBIN 0.7 mg/dL (<0.1-1.0); TOTAL PROTEIN 7.1 g/dL (6.4-8.2)
[2019-09-17 20:38] LABS: URINE LEUKOCYTES-REFLEX 1+ (Negative)
[2019-09-17 20:43] LABS: BACTERIA-REFLEX 1-9 Few /HPF (None Seen); CASTS None Seen /LPF (None Seen); CRYSTALS None Seen /LPF (None Seen); MUCUS 0-3 Light strn/LPF (None Seen); SQUAMOUS 0-3 Few /LPF (0-3); URINE RBC 3-10 Few /HPF (0-2); URINE WBC-REFLEX 6-15 Few /HPF (0-5)
[2019-09-17 23:00] VITALS: BP 135/53
[2019-09-17 23:35] VITALS: BP 142/73
--- NOTE | 2019-09-18 02:17 | NUR ---
New pt admitted from the ER for a UTI & AMS. pt was rescently discharged on the 08/29 for cellulitis of both lower ext. pt was able to tell me his names and date of but was unable to hold a conversation. pt is from [facility]. pt has a wound on her right cheek, right elbow and r forearm and bruises. pt tired and drowsy. v/s stable. no s/s of distress. fall prec in place. pt was unable to sign consents. will cont to monitor
[2019-09-18 07:58] VITALS: BP 124/54
--- NOTE | 2019-09-18 14:45 | NUR ---
Patient was seen lying in the bed with eyes closed and chest up and down; patient woke up about 1pm. Patient refused to answer questions in detais, only responsed that she knew she was in a hospital but not knowing which one. Patient was oriented that she was in [facility]; Patient tried to get off bed without calling, bed alarm went off; patient claimed she needed to use the toilet but could not get up with two nurses help, accepted bed hager. Abx administrated; Doctor Lilli claimed that creatitine would be monitored and if improved, normal saline infusion would be DC tomorrow. Patient ate ice cream after waking up, swallowing function normal, tolerated well.VSS, afebrile; lab reviwed, UA positive, urine culture pending, WBC within normal.Patient in bed with eyes closed, chest up and down. Will keep monitoring.
[2019-09-18 19:33] VITALS: BP 129/41
--- NOTE | 2019-09-19 03:27 | NUR ---
Assumed care of pt @1915. pt a&ox2 but forgetful and sometimes confused. pt c/o of pain in left leg which was relieved with hydrocodone. pt also c/o of right upper leg pain that radiates to her hip, orders for a volteran gell was ordered and administered. pt used the bedpan overnight with no difficulties. lower ext are elevated on a pillow due to cellultis. v/s stable. no s/s of distress. continuing ivf and iv abx. fall prec in place
[2019-09-19 07:32] VITALS: BP 115/43
[2019-09-19 14:52] VITALS: BP 115/41
--- NOTE | 2019-09-19 15:31 | NUR ---
Resumed care at 0700. PT was sitting in bed resting. Nurse assisted PT to bedside commode with x2 assist. PT was tearful during transfer complaining of right lower extremity pain and pain in left knee. PT was unable to void and was moved back to bed with nurse assist. PRN paid medication was given with partial pain relief. PT's peripheral IV was flushed with saline and noted to be infiltrated. Peripheral IV was discontinued with cannula intact. Nurse inserted a new peripheral IV 20g in the left posterior forearm. PT tolerated the procedure well. PT is currently resting in bed watcing television, semi-fierro's position with call light in reach. Nurse will continue to monitor.
[2019-09-19 19:20] VITALS: BP 113/45
--- NOTE | 2019-09-20 04:14 | NUR ---
ASSUMED CARE OF PT AT 1900HRS. PT IS AOX4 AT THE TIME OF ASSESSMENT AND CALLS FOR HELP NEEDED. SOME CONFUSION AND FORGETFULNESS NOTED THE NIGHT PROGRESSED. FALL PRECAUTION IN PLACE. ABX TREATMENT CONTINUED. PT REPORTED SOME PAIN AND WAS TREATED WITH PRN PAIN MEDS. PT WAS ABLE TO GET COMFORTABLE AND SLEEP PART OF THE SHIFT. VSS AND NO S/S OF ACUTE DISTRESS. WILL CONTINUE TO MONITOR.
[2019-09-20 04:31] VITALS: BP 130/45
[2019-09-20 04:49] LABS: HEMATOCRIT 23.7 % (37.0-47.0); MCHC 32.1 g/dL (28.0-37.0); RBC 2.24 mil/uL (4.20-5.00); RDW 14.3 % (10.5-14.5); WBC 5.6 thou/uL (4.0-11.0)
[2019-09-20 04:51] LABS: CALCIUM 8.2 mg/dL (8.5-10.1); CREATININE 1.3 mg/dL (0.6-1.0)
[2019-09-20 05:12] LABS: HEMOGLOBIN 7.6 gm/dL (12.0-15.0)
[2019-09-20 07:42] VITALS: BP 145/55
--- NOTE | 2019-09-20 16:37 | NUR ---
PT ASSESSED AT START OF SHIFT. MILD CONFUSION THIS AM BUT MORE THIS AFTERNOON THINKING SHE WAS AT [facility] AND WANTING TO GO TO HER ROOM. DID REORIENT SOMEWHAT AFTER DETAILS EXPLAINED. APPITIE POOR- NEEDS ENC TO EAT AND HELP W/ TRAY SET-UP. UP TO BSC W/ ASSIST. DECLINED GETTING UP TO THE CHAIR.
[2019-09-20 17:09] VITALS: BP 130/57
[2019-09-20 19:10] VITALS: BP 143/68
--- NOTE | 2019-09-21 04:27 | NUR ---
assumed care of pt @1915. pt increasingly confused throughout the night. aroung 0345, pt "wanted to go downstairs and meet her sister who has come to pick her up". pt pulled out her iv. a new iv placed. pt c/o of pain and was medicated. dr england changed po vitamin b12 to im. no s/s of distress, fall prec in place. will cont to monitor
[2019-09-21 07:34] VITALS: BP 137/82
--- NOTE | 2019-09-21 07:54 | NUR ---
PT ALERT AND ORIENTED TO PERSON AND MONTH. PT FIDGETING WITH BLANKET. PT CONFUSED ASKING ABOUT HER RING THAT WAS HER MOTHERS TALKING ABOUT SNOW LAST NIGHT. PT HAS DRY SKIN TO LEFT LE, SLIGHT REDDNESS AND PAIN OF 9 AFTER PAIN MED. PT STATED PAIN FEELS SHARP, SORE WITH MOVEMENT. PLACED PILLOW UNDER HEELS. PT HAS BRUISING TO RT FORARM. PT ABD IS ROUND. NO BM SINCE 09/17, BOWEL SOUND ARE PRESENT. PT UP TO BSC X1-2 PERSON WHEN NEEDING TO USE BATHROOM.
--- NOTE | 2019-09-21 10:30 | NUR ---
PT WANTING TO WALK OUT TO DINNING ROOM OR LIVING ROOM. REORIENTED PT ABOUT THIS IS A HOSPITAL AND THERE IS NO DINNING ROOM. PT UP WALKING AROUND BED TO CHAIR WITH STEADY GAIT, GAIT BELT AND WALKER. PT TOLERATED ACTIVITY WELL.
--- NOTE | 2019-09-21 15:08 | NUR ---
ADM NORCO 5MG PO FOR PAIN TO LEFT LEG OF 10 ON 1-10 SCALE.
--- NOTE | 2019-09-21 15:09 | NUR ---
PT SITTING UP IN CHAIR. PT STATED SHE HAS PAIN TO LEFT LEG OF 10 ON 1-10 SCALE. PT WANTING THIS TANNING SALON ATTENDANT TO CALL FAN SULLIVAN ABOUT HER WALLET AND PURSE. PT CONFUSED ABOUT WHEN SHE IS GOING HOME. PT DIDN'T WANT TO EAT LUNCH.
[2019-09-21 15:45] VITALS: BP 157/74
--- NOTE | 2019-09-21 18:26 | NUR ---
PT REFUSED TO USE BATHROOM AT THIS TIME. PT STILL SITTING IN CHAIR. PT CONFUSED AND WANTING TO KNOW ABOUT THE PLAZA. PT ALSO WANTING TO KNOW WHEN SHE CAN GO HOME. PT REST SOME IN CHAIR TODAY.
[2019-09-22] VITALS (8 sets, daily range): BP systolic 141–172; BP diastolic 52–90
--- NOTE | 2019-09-22 05:30 | NUR ---
PROGRESS PT VERY CONFUSED STATES SHE IS IN HER HOME, AND STAFF IS INTRUDING. "STATED THAT I NEED TO LEAVE AND MIND MY OWN BUSINESS THAT I WAS EVIL JUST LIKE THE REST OF THE STAFF HERE". PULLED IV OUT. IN TO SEE PT SHE WAS JUST RUDE TO HIM SO HE DISCONTINUED HYDROCODONE HER MENTAL STATUS WAS DECLINING. RF BRUISED AND DORY, LEGS DRY WITH SLOWLY IMPROVING EDEMA. IV ANTIBIOTICS CHANGED TO ORAL. PT SAT IN CHAIR UNTIL WE ASSISTED HER BACK TO BED WHERE SHE HAS SLEPT SOUNDLY FOR THE REMAINDER OF THE SHIFT.
[2019-09-22 06:23] LABS: ABSOLUTE NEUTROPHILS 3.9 thou/uL (1.4-8.2); ABSOLUTE RETIC COUNT 0.0383 10^6/uL; EOSINOPHILS 6.9 % (0.0-3.0); HEMATOCRIT 25.8 % (37.0-47.0); HEMOGLOBIN 8.4 gm/dL (12.0-15.0); LYMPHOCYTES 15.4 % (24.0-44.0); MCH 34.3 pg (26.0-34.0); MCHC 32.4 g/dL (28.0-37.0); MONOCYTES 8.4 % (1.0-8.0); OBSERVED RETIC COUNT 1.57 % (0.6-2.6); POLYS 68.3 % (36.0-66.0); RBC 2.44 mil/uL (4.20-5.00); RDW 14.4 % (10.5-14.5); WBC 5.7 thou/uL (4.0-11.0)
[2019-09-22 06:28] LABS: % SATURATION 23 % (20-39); IRON 32 ug/dL (50-170); TIBC 138 ug/dL (250-450)
[2019-09-22 06:29] LABS: PLATELET COUNT 145 thou/uL (150-400)
[2019-09-22 06:37] LABS: ALBUMIN 2.7 g/dL (3.4-5.0); CALCIUM 8.8 mg/dL (8.5-10.1); CREATININE 1.2 mg/dL (0.6-1.0); TOTAL BILIRUBIN 0.5 mg/dL (<0.1-1.0); TOTAL PROTEIN 5.7 g/dL (6.4-8.2)
--- NOTE | 2019-09-22 12:48 | NUR ---
Resumed care at 0700. PT appeared asleep in bed in the semi-fierro's position. Nurse awoke PT who answered and raised her eyebrows but did not open her eyes. Nurse asked PT where she was and PT stated, "I don't know and I don't care." Nurse told PT she is currently in the hospital at [facility]. Nurse asked PT if she knew what year it was. PT stated "nope and I don't care either". Nurse continued to ask PT questions but PT stopped answering. Nurse asked PT if she was in any pain. PT nodded her head yes but refused to open her eyes. Nurse tried to get the PT to drink water by holding the straw to her mouth and educating PT but PT refused to open her mouth. Nurse asked PT if she would take her scheduled medications and PT did not answer. Nurse charted refusal on morning medications because PT refused to open her mouth or acknowledge staff. PT is currently sitting in bed with her eyes closed. She refused breakfast and lunch trays. Call light is within reach and bed alarm is on. Nurse will continue to monitor.
--- NOTE | 2019-09-22 13:28 | NUR ---
Nutrition: Assessing due to selection of 'yes' to pressure wounds per admit form. No current wounds documented this admit, but past admits note R buttock (healing stages) per 06/2019 and R leg vascular wound per 08/2019. Admit: UTI, AMS/hallucinations, cellulitis bilateral LE. Hx: anemia, CKD. Seen by RD 2x this fall, recently < 1 mo ago. Per nsg notes, mental status declining over night; hydrocodone dc'ed. Pt sound asleep, lunch untouched. Would not awaken. Ate 40-50% of meals on 09/21 and per hx, not a big eater. Per past pt directed nutrition interventions, will add Ensure daily and yogurt BID to increase protein opportunity. Wt unchanged, 130-140# x 2 years. Weighed 141# at start of year in 10/2018, now 140#. With interventions, will keep as low nutrition risk for now, and monitor for any decline.
--- NOTE | 2019-09-22 13:42 | NUR ---
DISCHARGE PLANNING. DISCHARGE DATE UNDETERMINED AT THIS TIME. POST ACUTE RECOMMENDED AT DISCHARGE. CLINICAL REFERRAL FAXED TO W[facility]RETT AT [facility] ADMISSIONS. FOLLOWING TO ASSIST WITH DISCHARGE PLACEMENT NEEDS.
[2019-09-22 15:09] LABS: BE(vivo) -2.4 mmol/L (-2 to +3); HCO3 21.3 mmol/L (22.0-26.0); PCO2 32.5 mmHg (35.0-45.0); PO2 91.5 mmHg (80.0-100.0); pH 7.435 (7.360-7.450); sO2 97.3 % (92.0-98.0)
--- NOTE | 2019-09-22 16:35 | NUR ---
PT ADMITTED RELATED TO UTI, HALLUCINATIONS. CM REVIEWED CHART AND SPOKE WITH CARE TEAM. CM ATTEMPTED TO VISIT WITH PT BUT SHE DIDN'T ROUSE WHEN CM ENTERED ROOM AND SAID PT'S NAME MULTIPAL TIMES. 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 SHE INDICATED THAT THEY WOULD BE ABLE TO TAKE PT BACK SHOULD SHE NEED CONTINUED REHAB STAY ONCE MEDICALLY STABLE. FROM LAST VIST PT HAD FRIEND PORTIA JON THAT SHE WAS OK WITH CARE TEAM SHARING INFO WITH. CM TO REACH OUT TO HER WELL. CM TO FOLLOW INDICATED WITH DC PLANNING.
[2019-09-22 19:02] LABS: TSH 3.965 uIU/mL (0.358-3.740)
[2019-09-22 19:23] LABS: HEMATOCRIT 28.1 % (37.0-47.0); HEMOGLOBIN 9.2 gm/dL (12.0-15.0); MCH 34.7 pg (26.0-34.0); MCHC 32.8 g/dL (28.0-37.0); MCV 105.8 fL (80.0-100.0); RBC 2.66 mil/uL (4.20-5.00); RDW 14.5 % (10.5-14.5); WBC 5.4 thou/uL (4.0-11.0)
[2019-09-22 19:43] LABS: FOLIC ACID 33.9 ng/mL (8.6-58.9)
[2019-09-22 19:45] LABS: ANION GAP 12 mmol/L (7-16); BUN 13 mg/dL (7-18); CALCIUM 8.8 mg/dL (8.5-10.1); CHLORIDE 107 mmol/L (98-107); CO2 22 mmol/L (21-32); CREATININE 1.1 mg/dL (0.6-1.0); GLUCOSE 65 mg/dL (74-106); POTASSIUM 4.2 mmol/L (3.5-5.1); SODIUM 141 mmol/L (136-145)
[2019-09-22 19:49] LABS: ALBUMIN 2.9 g/dL (3.4-5.0); SGOT 25 U/L (15-37); SGPT 15 U/L (30-65); TOTAL BILIRUBIN 0.7 mg/dL (<0.1-1.0); TOTAL PROTEIN 6.2 g/dL (6.4-8.2); TROPONIN-I <0.06 ng/mL (<0.06)
--- NOTE | 2019-09-22 20:46 | NUR ---
Assumed care of pt at 1900hrs. Pt only responds to pain. Attending aware and initiated Tx to ICU. Orders received for Narcan and D-50 and anministered. Pt reported off to [facility]. CT completed. Pt transferrd to ICU at 2030 hrs.
[2019-09-23] VITALS (11 sets, daily range): BP systolic 127–168; BP diastolic 50–91
[2019-09-23 05:56] LABS: HEMOGLOBIN 8.2 gm/dL (12.0-15.0); MCH 34.4 pg (26.0-34.0); MCHC 32.7 g/dL (28.0-37.0); MCV 105.2 fL (80.0-100.0); RBC 2.37 mil/uL (4.20-5.00); WBC 5.7 thou/uL (4.0-11.0)
[2019-09-23 05:57] LABS: CALCIUM 8.6 mg/dL (8.5-10.1); POTASSIUM 3.7 mmol/L (3.5-5.1)
--- NOTE | 2019-09-23 06:02 | NUR ---
SEE [facility] FOR ASSESSMENT. PT MORE ALERT THIS AM. CALLING OUT" WILL YOU DO ME A FAVOR.' EASILY AWAKENS TO VERBAL STIMULI. REFUSED TYLENOL DESPITE C/O OF PAIN. CONT PLAN OF CARE
--- NOTE | 2019-09-23 07:28 | NUR ---
PATIENT TRANSFERRED TO ICU. PATIENT WILL BE PLACED ON HOLD FOR OT AT THIS TIME UNTIL NEW ORDERS ARE RECEIVED.
[2019-09-23 07:29] LABS: BE(vivo) -1.6 mmol/L (-2 to +3); PCO2 32.4 mmHg (35.0-45.0); PO2 77.9 mmHg (80.0-100.0); pH 7.449 (7.360-7.450); sO2 96.2 % (92.0-98.0)
--- NOTE | 2019-09-23 08:24 | NUR ---
Pt TRANSFERRED TO ICU. WILL PLACE ON HOLD AND AWAIT NEW ORDERS TO RESUME WHEN APPROPRIATE
--- NOTE | 2019-09-23 10:30 | NUR ---
TRANSFRED TO FLOOR VIA WHEEL CHAIR. NO BELONGINGS NOTED. REPORT GIVEN TO FLOOR.
--- NOTE | 2019-09-23 19:43 | NUR ---
A/O, clam and pleasant; complains pain in legs, pain medication given and worked; MRI head done; vss, afebrile. got up with help, walked with a walked with standby assist, weak.
--- NOTE | 2019-09-24 05:26 | NUR ---
NO CHANGES OVERNIGHT. PT A&OX2. PLEASANTLY CONFUSED. PT HAS BEEN VERY COOPERATIVE OVERNIGHT. PT DENIES PAIN. NO S/S OF DISTRESS NOTED. V/S STABLE. WILL CONT TO MONITOR
[2019-09-24 08:20] VITALS: BP 129/53
[2019-09-24 14:07] LABS: GLOBULIN TOTAL 2.2 g/dL (2.2-3.9); M-SPIKE Not Observed g/dL (Not Observed)
[2019-09-24 15:01] VITALS: BP 120/51
--- NOTE | 2019-09-24 15:47 | NUR ---
CARE TEAM INDICATED THAT PT WOULD NEED CONTINUED POST ACUTE CARE STAY. THERAPY INDICATED PT IS APPROPRIATE FOR SKILLED NOT ACUTE REHAB. [facility] CAN ACCEPT PT ONE MEDICALLY STABLE. PHYSICIAN INDICATED PT MAY BE MEDICALLY STABLE FOR DC TO [facility] TOMORROW. CM TO FOLLOW INDICATED WITH DC PLANNING.
[2019-09-24 19:33] VITALS: BP 132/59
--- NOTE | 2019-09-24 20:59 | NUR ---
VAT CONSULTED FOR A ML FOR THIS PT, WHEN APPROACHED PT SHE ADEMANTLY REFUSED A LINE PLACEMENT OR TO HAVE IV ABX INFUSED. RN ADVISED OF PT DECISION
--- NOTE | 2019-09-25 03:30 | NUR ---
Pt slept until about 0300 andn started crying. nurse went in that try to talk with pt, pt pt was very withdrawn, refusing to talk to nurse. nurse gave pt a wash cloth, pt took it, washed her face and then gave it back to the nurse. after about 15mins pt went back to sleep. pt denies pain
[2019-09-25 07:18] VITALS: BP 140/63
--- NOTE | 2019-09-25 16:18 | NUR ---
VASCULAR ACCESS CONSULTED FOR MIDLINE, DISCUSSED BENEFITS AND RISKS WITH PT,VERBALIZED UNDERSTANDING AND GAVE CONSENT FOR ML PLACEMENT. PATITO BASILIC WAS WIDELY PATENT WITH USG,4FR POWER MIDLINE TRIMMED TO 10CM INSERTED TO 0CM WITH BRISK BR. PT TOLERATED WELL. ML RELEASED FOR IMMEDIATE USE PER PROTOCOL TO SHILA HOOK
[2019-09-25 16:23] VITALS: BP 114/59
--- NOTE | 2019-09-25 16:41 | NUR ---
PHYSICIAN CONDULTED PSYCH. FAN MICHELLE UPDATED ABOUT POSSIBLE DC TOMORROW. CM TO FOLLOW INDICATED WITH DC PLANNING.
--- NOTE | 2019-09-25 16:56 | NUR ---
PATIENT VERY AGITATED THIS AM, REFUSING IV AND IV MEDICATIONS. EMOTIONAL SUPPORT GIVEN. MAIN COMPLAINT IS PAIN TO LEGS. SPOKE WITH DR. SAHNI AND A SECOND ONE TIME DOSE OF HYDROCODONE GIVEN. UP WITH MINIMAL ASSISTANCE TO BSC. VERY WEAK. THIS AFTERNOON FINALLY AGREED TO IV MIDLINE. IV TEAM PLACED MIDLINE IN PATITO. IV ZOSYN RESTARTED. MUCH MORE COOPERATIVE AND PLEASANT THIS AFTERNOON. NOW COMPLAINING OF HEADACHE. ICE PACK GIVEN PER HER REQUEST. FALL PRECAUTIONS IN PLACE. EATING VERY LITTLE.
[2019-09-25 17:07] LABS: SYPHILIS AB Non Reactive (Non Reactive)
[2019-09-25 18:09] LABS: IgA 207 mg/dL (64-422); IgG 647 mg/dL (700-1600); IgM 112 mg/dL (26-217)
[2019-09-25 23:28] VITALS: BP 113/55
--- NOTE | 2019-09-26 04:56 | NUR ---
assessment completed. pt pleasant tonight. took her pill with no difficulties. midline in place and patent. pt c/o of pain once and pain meds administered. pt has not urinated yet. pt refused to try, stated that she does not feel like urinating yet and will let staff know when she is. pt slept most of the night with very little interruptions. v/s stable. no s/s of distress. will con to monitor
[2019-09-26 08:50] VITALS: BP 104/51
--- NOTE | 2019-09-26 13:35 | NUR ---
WOUND CARE FOLLOW UP; BILATERAL LE WOUNDS TO THE BANGURA. 90% HEALTHY TISSUE WITH SOME NON VIABLE TISSUE. CURRENTLY USING SILVADINE CREAM, PETROLEUM GAUZE ANNIKA CIFUENTES, RECOMMENDATIONS; CONTINUE CURRENT ORDERS DISCUSSED WITH RN
[2019-09-26 15:42] VITALS: BP 124/53
--- NOTE | 2019-09-26 16:23 | NUR ---
SHOULD PT BE MEDICALLY STABLE TO DISCAHRGE OVER THE WEEKEND PT IS TO GO TO [facility]. CONTACT FACILITY AT TO ARRANGE TRANSPORT AND FAX ORDERS TO . CHART COPY MADE. NOTIFY PT'S FRIEND PORTIA OF DISHCARGE.
[2019-09-26 19:33] VITALS: BP 124/58
--- NOTE | 2019-09-26 20:01 | NUR ---
Assumed pt care this am, VS stable wound care done by the wound care nurse. Pt still confused but could be redirected. Medication and diet is well tolerated. Pt was able to urinated several times during the shift. Wound care done by the wound care nurse. POC followed no signs or verbalizations of distress have been noted. Pt worked with PT and OT today and was able to ambulate with a gait belt and walker. Endorsed to the night nurse.
--- NOTE | 2019-09-27 04:04 | NUR ---
ASSUMED CARE AROUND 1914. VSS. FLUIDS D/C. NO S/S ACUTE DISTRESS NOTED OR REPORTED AT THIS TIME. WILL CONT TO MONITOR FOR ANY CHANGES IN CONDITION.
[2019-09-27 08:13] VITALS: BP 125/59
[2019-09-27 12:10] VITALS: BP 115/52
[2019-09-27 19:24] VITALS: BP 142/60
--- NOTE | 2019-09-27 20:09 | NUR ---
Assumed pt care this am, pt had spent the night on the recliner as per the night nurse pt refused to go back to bed. Both legs are red, hot and swollen brought pt back to the bed and elevasted her legs , seen by Dr. De Anda. POC followed no signs or verbalizations of distress have been noted. VS stable. Pt is incontinent.
--- NOTE | 2019-09-28 04:22 | NUR ---
Pt. rested quietly at intervals during the night when checked on during frequent rounds. She c/o headache and po pain meds given (see emar) with some relief noted. Incontinent of urine and robert care given. Foot of the bed elevated due to bilateral lower leg edema. Ambulated to the bathroom with assistance and walker. Bed alarm is on.
[2019-09-28 08:00] VITALS: BP 146/67
--- NOTE | 2019-09-28 08:30 | NUR ---
WHEN ROUNDING ON PT SHE STATED SHE WAS HAVING PAIN THIS AM. PAIN MEDICATION GIVEN ORDERED SEE DEC. MORNING MEDS WERE BROUGHT IN AND RN ASKED FOR PERMISSION TO ASSESS PT. PT REFUSED ASSESSMENT AND IS REFUSING MORNING SCHEDULED MEDICATIONS INCLUDING IV ANTIBIOTIC AND PO AMIODARONE. PT ENCOURAGED TO TAKE MEDICATIONS BUT STILL REFUSED. PT STATES SHE IS HAVING NAUSEA. NO ANTINAUSEA MEDS ON DEC. DR BATEMAN.
--- NOTE | 2019-09-28 11:58 | NUR ---
RX LOTION APPLIED TO BILAT LOWER EXTREMITIES. PT IS VERY TENDER AND SORE TO TOUCH. BILAT HEELS ARE VERY SORE AND R CALF IS VERY SORE.PT STATES SHE HAD A BLISTER THAT POPPED ON THE RIGHT HEEL.
[2019-09-28 15:00] VITALS: BP 121/57
--- NOTE | 2019-09-28 18:47 | NUR ---
Patient up to chair to commode once this afternoon. She tolerated transfer well. She has been pleasant and cooperative. She expressed pain medications helped her. Patient progressing towards plan of care. She is keeping her legs on a pillow since Dr. De Anda rounded. She expressed she needs to be more compliant and do what Dr. De Anda says she needs to do.
[2019-09-28 19:19] VITALS: BP 113/43
--- NOTE | 2019-09-29 03:34 | NUR ---
PT CARE ASSUMED AT 1900 WITH PT IN BED.PT IS UP TO BSC WITH MODERATE X1 SBA .PT HAS BLE CELLULITIS WITH NO OPEN WOUNDS NOTED.PT REFUSE LEVONOX INJECTION.PT PAIN MGT WITH HYDROCODONE .PT HAS PATITO MIDLINE IN PLACE..CONTINUE TO MONITOR
[2019-09-29 07:14] LABS: HEMATOCRIT 21.9 % (37.0-47.0); MCH 34.4 pg (26.0-34.0); MCV 107.2 fL (80.0-100.0); RBC 2.04 mil/uL (4.20-5.00); WBC 4.4 thou/uL (4.0-11.0)
[2019-09-29 07:24] VITALS: BP 120/58
[2019-09-29 07:25] LABS: CALCIUM 8.7 mg/dL (8.5-10.1); CREATININE 1.4 mg/dL (0.6-1.0); POTASSIUM 4.8 mmol/L (3.5-5.1)
--- NOTE | 2019-09-29 13:42 | NUR ---
Followup: BLE cellulitis. Intake <50% meals however really likes ensure enlive and will drink 3-4 of these per day which provide 350 josephine and 20g protein each. No new wt from 09/23. ?126 lb as pt usually weights closer to 130 lb and reported no recent wt loss. Remains low nutrition risk.
--- NOTE | 2019-09-29 14:54 | NUR ---
CARE TEAM INDICATED THAT PT IS SLOWLEY PROGRESSING TOWARD GOAL OF DISCHARGE. PT IS GETTING A UNIT OF BLOOD AND NURSE INDICATED THAT CARE TEAM MAY BE CONSIDERING A BONE ASPIRATION. CM TO FOLLOW INDICATED WITH ANTICPATED DISCHARGE TO SKILLED REHAB AT [facility] ONCE MEDICALLY STABLE.
[2019-09-29 15:37] VITALS: BP 116/46
[2019-09-29 15:54] VITALS: BP 116/47; BP 126/51
[2019-09-29 19:46] VITALS: BP 137/51
--- NOTE | 2019-09-29 19:48 | NUR ---
Assumed pt care this am, was pleasant and alert for most of the day til late afternoon. Pt would have bouts of forgetfulness. Pt has 1 unit of RBC running no signs or symptoms of reactions, endorsed to the night nurse for completion of transfusion. VS have been stable. Edema on legs are lesser, right leg still has redness, wound care done. Pt was sleepy for most of the day but would eat her meals and preferred the supplements vs the meal. Barrier cream placed on her buttock, repositioned pt through out the day. Pain was managed with medication, relief noted since pt would be asleep and would deny pain when asked. POC followed, no other signs or verbalizations of distress have been noted./
--- NOTE | 2019-09-30 06:47 | NUR ---
PT WAS A TRANSFER FROM . THE PT WAS ASLEEP WHEN SHE ARRIVED TO THE UNIT. PT HAS A LEFT UPPER ARM MIDLINE. THE PT IS ALERT AND ORIENTED X 4 WITH SOME CONFUSION. THE PT CALLS OUT INTO THE SETH WHEN SHE NEEDS HELP. THE PT WAS REFUSING HELP TO OTHE CAMODE. PT BECAME WEAK AND FINALLY LET ME HELP HER. I WAS NEEDING A STOOL SAMPLE BUT THE PT PUT TOILET PAPER AND WIPES INTO THE CAMODE. PT STATED THAT SHE THOUGHT SHE COULD USE THE RESTROOM AGAIN. i SPOKE WITH DR. SAHNI ABOUT THE CARE OF THE PT. THE PT COMPLAINS OF PAIN ON HER LOWER BACK AT A SCALE OF 10. I ADMINISTERED A HYDROCODONE. THE PT WAS SLEEP WITHIN 3-5 MINUTES. I TOOK THE PT A WARM BLANKET AND SHE WENT BACK TO SLEEP. PT IS NON COMPLIANT WHEN USING HER CALL LIGHT AFTER BEING RE EDUCATED. THE PT REFUSED LAB DRAW.
[2019-09-30 08:00] VITALS: BP 124/61
[2019-09-30 12:24] LABS: HEMATOCRIT 29.5 % (37.0-47.0)
[2019-09-30 12:27] LABS: HEMOGLOBIN 9.8 gm/dL (12.0-15.0)
[2019-09-30] MEDS ORDERED: MIRALAX17 GM PO (13:08)
[2019-09-30] MEDS ORDERED: ENOXAPARIN30 MG/0.1 SUBQ (13:08)
[2019-09-30] MEDS ORDERED: ZOFRAN ODT4 MG DISSOLVE (13:08)
[2019-09-30] MEDS ORDERED: REMERON15 MG PO (13:08)
[2019-09-30] MEDS ORDERED: PIPERACIL-TA3.375 G1 IV (13:13)
--- NOTE | 2019-09-30 14:25 | NUR ---
DISCHARGE ORDERS COMPLETED. PATIENT DISCHARGING TO [facility] AT [facility]. CHART COPY COMPLETED PER APARTMENT GROUNDSKEEPER. DISCHARGE ORDERS AND SUMMARY FAXED TO [facility] ADMISSIONS. VERIFIED ORDERS RECEIVED. TRANSPORTATION ARRANGED PER Leanne [facility] HOURS. FRIEND PORTIA NOTIFIED. UNIT RN NOTIFIED AND CONTACT NUMBER FOR REPORT PROVIDED. UNIT SW AWARE.
[2019-09-30 15:00] VITALS: BP 162/60
--- NOTE | 2019-09-30 17:03 | NUR ---
PT LETHARGIC, VSS, PAIN IN BILAT LE. PATIENT REFUSED PHYSICAL THERAPY TODAY. WOUND CARE COMPLETED. PATIENT DISCHARGED TO FACILITY, MIDLINE REMOVED, ALL BELONGINGS WITH PATIENT. WILL CONTINUE TO MONITOR.
--- NOTE | 2019-10-07 21:32 | D ---
[facility] [place] [address] DISCHARGE SUMMARY Name: PASCUAL HAAS Room #: 406-P [facility] IN ..#: [id number] Admission: 09/17/19 Attend Phys: Andre De Anda MD Discharge: 09/30/19 Date of : 42 Report #: [id number] THIS REPORT FOR: //name// CC: Andre De Anda CC: [facility] to be hand delivered DATE OF SERVICE: 09/30/2019 SUMMARY OF HISTORY AND PHYSICAL: The patient was brought to the Emergency Room from [facility] with the report that she had been hallucinating with altered mental status and for 2 days had been talking to people who were not present. In the Emergency Room, her urinalysis was abnormal with blood, leukocyte esterase, a few bacteria, a few wbc's and some mucus. The Emergency Room physician's assistant chief nursing officer thought that she needed admission for a urinary tract infection as an explanation for her mental status changes and admission was arranged. However, the legs did have erythema on the PA's exam and it turns out that the cellulitis in her legs was the cause for her mental status change. SUMMARY OF HOSPITAL COURSE: She was admitted and placed on intravenous antibiotics. The reason is not known, but her urine culture returned negative. She was seen by Dr. Reeder who noted inflammation, swelling, warmth and tenderness in the left leg more than the right. She was given intravenous fluids. She was kept n.p.o. until she became more alert (her responsiveness was diminished) and started on IV Zosyn. She did well on this regimen for the next 2 days, and then began to be more somnolent again. On 09/21/2019, Dr. Alan Cesar discontinued her hydrocodone 5/325 in the afternoon, after she had received 3 pills. She had received 3 hydrocodone doses every day of her hospital stay until that point. The next day, 09/22/2019, she steadily became more and more somnolent and unresponsive as the day progressed. She was seen in Neurology consultation. An arterial blood gas showed hypoventilation. Her exam suggested oversedation with medication. She was given low doses of Narcan, and did not immediately respond. Her fingerstick glucose was 61, not excessively low, and she was given an ampule of D50 without immediate response. Once she was transferred to the Intensive Care Unit and the nurses complied with the order to start IV fluids, she did become responsive and relatively alert. It was felt that the intravenous medications did not circulate well, given in the distal peripheral line in her right arm with a small flush by syringe, and once her intravascular volume began to be restored and the medications circulated, she began to respond. The following day, she was neurologically intact and returned to the floor. A Pharm D consultation did note that metabolism can be prolonged with the use of the narcotic medications, but did not provide a clear explanation as to why more than 28 hours after her last dose of narcotic, she [address] [address] DISCHARGE SUMMARY Name: PASCUAL HAAS Room #: 406-P [facility] IN M.R.#: [id number] Admission: 09/17/19 Attend Phys: Andre De Anda MD Discharge: 09/30/19 Date of : 42 Report #: [id number] continued to become more and more obtunded. At this point in time, she had been lying in bed pretty much the entire time since admitted. She has a long history of severe edema in the left leg much more so than the right, and the edema had resolved. The redness in her legs had improved tremendously, however she her IV out on 09/21, and was switched to oral antibiotics. The redness in her leg returned on Sunday 09/23 , and became quite painful. Zosyn was restarted with an improvement. The following day, she refused the Zosyn, behavior/psychological issues became an element in her care. The redness and pain and mild swelling returned. On 09/23/2019, her nurse was [place] and said that the patient's mental status was very clear and she talked in detail about [place] and Chinese culture all day long. She needed help moving her legs to get up out of bed, but was able to walk to the bathroom with a walker by herself without needing assistance. Even so, her legs were exquisitely tender when touched. On 09/24, with resumption of Zosyn, her redness had improved tremendously. However, the patient had a personality change and insisted that she needed to go home, wanted to go home, and refused to allow the nursing staff to give her IV Zosyn. A triggering event was that (with her IV fluids) she was well hydrated, had the bladder full, and while sleeping wet the bed with a tremendous amount of urine without awakening. She was very upset when she awoke and found that she had wet the bed. The redness returned with the interruption of her IV therapy. She refused to allow an IV to be restarted. The next day, she then allowed the IV to be restarted and her leg began to improve as well. She was becoming more active, and began to sit in the chair some during the day. Her legs began to swell a little bit and she refused to get in bed that night as recommended by the nursing staff. She was afraid it would be uncomfortable and hurt her legs. So, the net result was she stayed sitting in a chair all night long and the swelling in her legs returned and by the following morning they were more red and more swollen and much more painful. The result was that she continued to insist that what she needed to do was to just go home. It took quite a bit of attention and explanations to explain to her that she needed to stay in the hospital on IV Zosyn for the cellulitis and to sleep in bed at night and to elevate her legs to reduce the swelling. She eventually accepted that recommendation and the night of 09/27 to 09/28, she allowed the nurses to put her back in the bed and the following morning her redness was better and the swelling was better and only the skin of the posterior portion of her legs was tender with some dependent edema. She appeared clinically depressed and one night awoken in tears. She explained that she was not depressed, in an angry tone, and refused antidepressant medication. She was seen several days in a row by the psychiatrist. The [address] [address] DISCHARGE SUMMARY Name: PASCUAL HAAS Room #: 406-P [facility] IN M..#: [id number] Admission: 09/17/19 Attend Phys: Andre De Anda MD Discharge: 09/30/19 Date of : 42 Report #: [id number] sychiatrist recommended that she choose a medical power of divorce attorney, as she does not have one. He noted that she appeared depressed and that was refusing antidepressant medication. He noted that she admitted to being frustrated. He felt that she was less depressed than when he saw her earlier in the week, slightly irritable and that her thought process was concrete. He thought her insight and judgment were limited. Speech therapy evaluated the patient the day before discharge when her cognition was better than earlier in her hospital stay, and found 25% to 45% memory function, 50% to 69% cognition, and she did better with 80% to 89% understanding expression and 80% to 89% with comprehension. On the day of discharge when I came into her room, she told me that she was very disappointed with me. She was disappointed that she still had some swelling and redness and discomfort in her legs, and that she was not headed directly home. She was disappointed that she had the swelling and redness, and asked me where it had come from; that it was news to her. She indicated that she understood that she had swelling and redness and pain in her left leg on this admission, but that she had not had it before, and wondered what caused it and where it came from. I explained to her that when I first started taking care of her in October 2018, she was hospitalized for exactly the same problems, swelling and pain and redness and cellulitis in her left leg, much more than the right. I told her she had been hospitalized under my care several times since then, and that it had been a problem when she had seen me in the office over this last year. She indicated that she had never been told by any physicians, myself included, about this problem previously. I explained to her that it had become much better on this admission because she had allowed herself to sleep in a bed with her legs and body horizontal on this admission, and that she required another week's worth of IV Zosyn to finish treatment for the cellulitis. See below for a list of her hopsitalizations for the same cellulitis and edema. LABORATORY DATA: Creatinine was 1.2 on admission and 1.4 at discharge. EGFR remained between 36 and 43. Albumin was 3.6 on admission. Lactic acid was normal at 1.5. Ammonia level was less than 10 when she was obtunded. Troponin was negative. Free T4 was 1.2, free T3 mildly low at 1.53, TSH mildly elevated at 3.965 for minimally low thyroid, possibly due to amiodarone, not needing treatment at this time. Vitamin B12 was over 6000, folate was 33.9. IgG was low at 647, IgA was normal at 207, IgM normal at 112. Sed rate was 18. Syphilis antibodies were negative. Reticulocyte count was normal at 1.57 on 09/22 when hemoglobin was measured at 8.4 and again at 9.2. Soluble transferrin receptor assay was normal. Serum protein electrophoresis showed only low albumin. Iron level was low at 32. Total LDH was minimally elevated at 239 (under 235). Hemoglobin was 9.[address] [address] DISCHARGE SUMMARY Name: PASCUAL HAAS Room #: 406-P [facility] IN [facility].#: [id number] Admission: 09/17/19 Attend Phys: Andre De Anda MD Discharge: 09/30/19 Date of : 42 Report #: [id number] admission, 7.6 the next day, 8.4 the next day, then 9.2, then 8.2 and then on 09/29 the mitzi was 7.0. The Hematology/financial analysis consultant, Dr. Herrera, recommended that she receive a unit of blood, which she did; the following day, her hemoglobin was 9.8. the next day, then 9.2, then 8.2 and then on 09/29 the mitzi was 7.0. The Hematology/financial analysis consultant, Dr. Herrera, recommended that she receive a unit of blood, which she did; the following day, her hemoglobin was 9.8. Urinalysis showed 1+ blood, 1+ leukocytes, 6 to 15 wbc's, 3 to 10 rbc's, 1 to 9 bacteria, 0 to 3 mucous, but the urine culture is negative. On 09/22/2019 when obtunded, her pH was 7.43, pCO2 was 32.5, pO2 was 91.5 on room air. IMAGING: MRI of the head without contrast showed no acute intracranial abnormalities, infarct nor hemorrhage. There is a tiny amount of fluid within the posterior sphenoid sinus, consistent with acute sphenoid sinusitis. X-ray of the right hip showed osteopenia or osteoporosis with extensive reabsorption, but was otherwise unremarkable with right total hip arthroplasty. CT scan of the head showed no acute changes, but did show an age indeterminate left cerebellar infarct and diffuse small vessel ischemic change. DISCHARGE DIAGNOSES: 1. Recurrent acute cellulitis of the left leg. 2. Recurrent edema of the left leg. 3. Toxic encephalopathy that improved as her condition was treated. 4. Significant cognitive dysfunction and poor insight. At the end of her hospital stay, speech therapy measured 25% to 45% memory, 50% to 69% cognition, 80% to 89% expressive understanding and 80% to 89% comprehension. On the last hospital day, the patient denied ever having been in the hospital before for swelling of her leg and painful redness and cellulitis of her left leg, and was not inclined to believe it even after I explained to her that she had had these problems for the year that she had been under my care and had been in the hospitalized 5 times. 5. Anemia evaluation at this point strongly suggests myelodysplasia. Dr. Lavern Herrera is the oncologist/steward/stewardess night that directed the evaluation. He recommended a bone marrow to the patient, but she refused. They indicated there might be FISH hybridization probes that could be done on peripheral blood that would help rule in or rule out the diagnosis. She received 1 unit of blood transfusion. 6. Minimal hypothyroidism from her amiodarone, not enough to start thyroid replacement. 7. Coronary artery disease/coronary artery bypass graft on 01/22/[address] [facility], followed by Dr. Mathis. 8. Stable chronic kidney disease, stage 3. 9. Just a short episode of atrial fibrillation and a past history of atrial fibrillation, kept in rhythm by amiodarone. [facility] [address] [place] [address] DISCHARGE SUMMARY Name: PASCUAL HAAS Room #: 406-P DIS IN M.R.#: [id number] Admission: 09/17/19 Attend Phys: Andre De Anda MD Discharge: 09/30/19 Date of : 42 Report #: [id number] 10. Distant hip replacement with significant reabsorption and osteopenia/osteoporosis on the x-rays, but normal function of the prosthesis per orthopedic executive search consultant, and the patient satisfied with the results. 11. Small acute sphenoid sinusitis by MRI scanning. 12. 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 13. History of laparoscopic cholecystectomy in [place]. 14. Distant hysterectomy. 15. Old pubic rami fractures and a right sacral fracture are present on pelvis radiology. 16. History of B12 deficiency with adequate replacement. 17. Episodic significant constipation. 18. Hydrocodone 5/325 sensitivity; accumulated at a three times a day dosing and led to respiratory depression. NOTE: 1. She was admitted for left leg swelling and painful cellulitis of the left leg on 09/17/2019 to 09/30/2019, again from 08/23/2019 to 08/29/2019, from 07/14/2019 to 07/17/2019, from 04/25/2019 to 04/29/2019 and from 10/27/2018 to 10/31/2018. 2. Her cognitive dysfunction and poor insight/poor judgment led to several episodes of behavior that prolonged her hospital stay. For several days, she refused to allow IV medications to be administered and this setback her recovery, including her Zosyn for the cellulitis and this delayed her recovery. Another time, she refused to get in bed and elevate her legs, causing swelling that had started to recur during the day while sitting in a chair, to become stronger and more painful overnight into the next day, and also delayed her discharge. PLAN: 1. She is return to return to [facility] where she had been staying. 2. Approach for the physicians, medical staff and nursing personnel: She needs repeated explanations and engagement with several of her medical therapies; elevating her legs, taking IV medications and other interventions. She easily refuses them, but seems on most occasions to be able to be convinced to comply as long as detailed repeated explanations are given. 3. Zosyn for 7 more days; it was noted that she did not respond to Augmentin orally, but required IV Zosyn. 4. Lovenox 30 mg once daily for DVT prophylaxis. 5. Mirtazapine 15 mg at bedtime to help with sleep and depression (she angrily denied being depressed, but clinically appeared depressed). 6. MiraLax 17 grams twice daily as needed for constipation. 7. Amiodarone 200 mg daily. 8. Vitamin with iron and minerals once daily. 9. Vitamin B12, 1000 mcg daily. 10. Atorvastatin 40 mg daily. [address] [address] DISCHARGE SUMMARY Name: PASCUAL HAAS Room #: 406-P [facility] IN M.R.#: [id number] Admission: 09/17/19 Attend Phys: Andre De Anda MD Discharge: 09/30/19 Date of : 42 Report #: [id number] 11. Acetaminophen as needed. 12. Trazodone 50 mg at bedtime as needed for sleep. 13. Diclofenac gel 4 times daily to her left knee as needed for pain. 14. Ammonium lactate lotion to her legs. 15. Torsemide 20 mg daily as needed for edema. 16. Hydrocodone 5/325 limited to one every 12 hours as needed for severe pain. 17. She is to see me in my office in approximately 2 weeks. <ELECTRONICALLY SIGNED> By: Andre De Anda MD 10/07/19 [id number] Andre De Anda MD /nt
== END 2019-09-30 17:05 | DRG 602 ==
LOC: ER 19:46 → EROBS 21:30 → 4W 21:30 → ICU 09-22 21:21 → 4W 09-23 11:13 → 4N 09-29 23:15
PROVIDERS: Internal Medicine; Physician Assistant; Psychiatry & Neurology Neurology; ADMIT Internal Medicine
PROC: 30233N1 Transfusion of Nonautologous Red Blood Cells into Peripheral Vein, Percutaneous Approach (ICD-10-PCS; principal; 2019-09-29)
DX: L03.116 Cellulitis of left lower limb (principal); G93.41 Metabolic encephalopathy; N39.0 Urinary tract infection, site not specified; E44.0 Moderate protein-calorie malnutrition; N18.4 Chronic kidney disease, stage 4 (severe); L03.115 Cellulitis of right lower limb; Z96.642 Presence of left artificial hip joint; I25.5 Ischemic cardiomyopathy; I48.91 Unspecified atrial fibrillation; M19.90 Unspecified osteoarthritis, unspecified site; R41.0 Disorientation, unspecified; F22 Delusional disorders; R40.0 Somnolence; D50.9 Iron deficiency anemia, unspecified; E53.8 Deficiency of other specified B group vitamins; Z60.2 Problems related to living alone; L89.151 Pressure ulcer of sacral region, stage 1; Z68.21 Body mass index [BMI] 21.0-21.9, adult; T40.2X5A Adverse effect of other opioids, initial encounter; F32.9 Major depressive disorder, single episode, unspecified; D53.9 Nutritional anemia, unspecified; L30.8 Other specified dermatitis; Z96.641 Presence of right artificial hip joint; M85.80 Other specified disorders of bone density and structure, unspecified site; M81.0 Age-related osteoporosis without current pathological fracture; Z90.49 Acquired absence of other specified parts of digestive tract; Z90.710 Acquired absence of both cervix and uterus; Z95.5 Presence of coronary angioplasty implant and graft; Z87.81 Personal history of (healed) traumatic fracture; Y92.89 Other specified places as the place of occurrence of the external cause; Z82.49 Family history of ischemic heart disease and other diseases of the circulatory system
CPT/HCPCS: 10040; 10047; 10078; 10790; 27000

== ENCOUNTER → 2020-10-01 | Outpatient (CLI) | payer OTHER ==
[~2020-10-01] MED LIST changes: +CALMOSEPTINE OI71 GM TOP; +ENOXAPARIN30 MG/0.1 SUBQ; +LIDODERM1 EACH TOP; +PIPERACIL-TA3.375 G1 IV; +REMERON15 MG PO; +ZOFRAN ODT4 MG DISSOLVE
== END ==
LOC: SJCVC 13:28 → SJCVCIMAG 13:28
PROVIDERS: ATTEND Internal Medicine Cardiovascular Disease
DX: I08.1 Rheumatic disorders of both mitral and tricuspid valves (principal); R94.31 Abnormal electrocardiogram [ECG] [EKG]; I25.810 Atherosclerosis of coronary artery bypass graft(s) without angina pectoris; I10 Essential (primary) hypertension; E78.00 Pure hypercholesterolemia, unspecified; I25.5 Ischemic cardiomyopathy; I65.23 Occlusion and stenosis of bilateral carotid arteries; Z95.1 Presence of aortocoronary bypass graft; Z79.899 Other long term (current) drug therapy

== ENCOUNTER → 2020-10-08 | Outpatient (CLI) | payer OTHER | LOC: SJCVCIMAG 10-05 08:16 | PROVIDERS: ATTEND Internal Medicine Cardiovascular Disease | DX: Z01.818 Encounter for other preprocedural examination (principal); I25.810 Atherosclerosis of coronary artery bypass graft(s) without angina pectoris; I48.0 Paroxysmal atrial fibrillation; R01.1 Cardiac murmur, unspecified; Z95.1 Presence of aortocoronary bypass graft ==

== ENCOUNTER 2021-01-05 17:13 | Emergency (ER) | payer OTHER ==
[~2021-01-05] VITALS: Ht 172.7 cm; Wt 59.0 kg
--- NOTE | ~2021-01-05 | EMS ---
[address] [address] EMS Patient Care Report Name: PASCUAL HAAS Room #: REG AIDEN Moran#: [id number] Admission: 01/05/21 Attend Phys: Discharge: Date of : 42 Report #: [id number] THIS REPORT FOR: //name// Report Transmitted: 01/05/2021 18:46 EMS Care Summary [facility] MED-ACT Incident [id number] @ 01/05/2021 16:27 Incident Location [address] [place] [address] Patient PASCUAL HAAS Female, 80 Years 1940 Patient Address [address] [place] [address] Patient History Congestive Heart Failure (CHF),Hypertension (HTN),TIA, Patient Allergies No known allergies, Chief Complaint "my legs are swollen, red and hurt" Disposition Transported No Lights/Spray Dispatch Reason Sick Person Transported To [facility] Narrative [id number] was dispatched and responded to a residence for a C3 sick ill subject. M1142 arrived on scene and made patient contact to find the patient answering the door. The patient used her walker and moved to a chair. The patient stated that two days ago her left lower leg started to get red, swollen and painful. [facility] [address] [place] [address] EMS Patient Care Report Name: PASCUAL HAAS Room #: REG Luisa#: [id number] Admission: 01/05/21 Attend Phys: Discharge: Date of : 42 Report #: [id number] She stated home health workers told her she should go to the hospital. 142 obtained VS, PMH, PHI and Temperature. The patient stated she has never had this problem before. The patient rated her lower left leg pain as a 7 on the pain scale and described the pain as sharp. She stated that the pain doesn't radiate anywhere. The patient is a poor historian for PMH and medications. The patient stated she has been in a rehabilitation hospital for the past 13 months but can't remember what for. She stated she got home last week and is being seen by home healthcare workers. The patient stated she hasn't taken any of her medications since she left the rehabilitation hospital last week. The patient denied having any chest pain, SOA, dizziness, n/v, weakness or any other pain. The patient moved from her chair via her walker to the cot, M142 assisted the patient to the cot, packaged, moved to the back of the ambulance and secured. During transport the patient was transported in the position of comfort and no change in status. The Pulse Ox was not reading during transport despite multiple efforts to fix it. Upon arrival to [facility] the patient was moved from the back of the ambulance to the a hospital bed in the hallway of the ER. M1142 assisted the patient from the cot to the hospital bed without incident and two rails up. REMIGIO Schmidt gave a patient report and transferred care of the patient to the ER nurse on duty. M1142 cleared the hospital and went back into service. Initial Vitals @16:47P: 73,R: 16,BP: 197/93,Pain: 7/10,GCS: 15,Revised Trauma: 12, @17:02P: 63,R: 16,BP: 192/85,Pain: 7/10,GCS: 15,Revised Trauma: 12, @16:36P: 80,R: 16,BP: 197/89,Pain: 7/10,GCS: 15,Temp: 96.7F,SpO2: 97,Revised Trauma: 12, Assessments @16:36MENTAL:Person Oriented,Time Oriented,Event Oriented,Place Oriented,SKIN:HEENT:Head/Face: No Abnormalities,LUNG SOUNDS:ABDOMEN:PELVIS//GI:EXTREMITIES:Left Leg: Edema,Left Leg: Other,Right Leg: No Abnormalities,PULSE:Radial: 2+ Normal,NEURO: Impression Edema Procedures @16:50Surgical Mask on PatientResponse: Unchanged Timeline 16:26,Call Received 16:26,Psap Call 16:27,Dispatched 16:29,En Route 16:34,On Scene 16:35,At Patient 16:36,BP: 197/89 M,PULSE: 80,RR: 16 R,SPO2: 97 Ox,ETCO2: ,BG: ,PAIN: 7,GCS: 15, [address] [address] EMS Patient Care Report Name: PASCUAL HAAS [id number] Admission: 01/05/21 Attend Phys: Discharge: Date of : 42 Report #: [id number] 16:47,Depart Scene 16:47,BP: 197/93 M,PULSE: 73,RR: 16 R,SPO2: Ox,ETCO2: ,BG: ,PAIN: 7,GCS: 15, 16:50,Surgical Mask on Patient,Response: Unchanged 17:02,BP: 192/85 M,PULSE: 63,RR: 16 R,SPO2: Ox,ETCO2: ,BG: ,PAIN: 7,GCS: 15, 17:09,At Destination 17:27,Call Closed Disclaimer v1.1 Copyright 2020 [employer] This EMS Care Summary contains data elements from the applicable legal record (which may be displayed differently). It is designed to provide pertinent information for the following purposes: continuity of care, clinical quality, and state data reporting. The complete legal record is available to ED staff and administrators of the receiving hospital in ES's Patient Tracker. All data is provided "as is."
[2021-01-05 18:44] LABS: ABSOLUTE NEUTROPHILS 4.2 thou/uL (1.4-8.2); BASOPHILS 0.9 % (0.0-2.0); EOSINOPHILS 1.7 % (0.0-3.0); LYMPHOCYTES 22.4 % (24.0-44.0); MCH 32.5 pg (26.0-34.0); MCHC 31.6 g/dL (28.0-37.0); MCV 102.9 fL (80.0-100.0); MONOCYTES 8.3 % (1.0-8.0); POLYS 66.7 % (36.0-66.0); RDW 15.4 % (10.5-14.5); WBC 6.3 thou/uL (4.0-11.0)
[2021-01-05 18:54] LABS: CALCIUM 9.3 mg/dL (8.5-10.1); CREATININE 1.6 mg/dL (0.6-1.0)
[2021-01-05 19:00] LABS: TOTAL BILIRUBIN 0.5 mg/dL (0.2-1.0); TOTAL PROTEIN 7.6 g/dL (6.4-8.2)
[2021-01-05 19:32] LABS: PLATELET COUNT 97 thou/uL (150-400)
[2021-01-05 19:41] LABS: URINE BILIRUBIN NEGATIVE (Negative); URINE BLOOD TRACE (Negative); URINE CLARITY CLEAR; URINE COLOR YELLOW; URINE GLUCOSE-RANDOM* NEGATIVE (Negative); URINE KETONES NEGATIVE (Negative); URINE LEUKOCYTES-REFLEX NEGATIVE (Negative); URINE NITRITE-REFLEX NEGATIVE (Negative); URINE PROTEIN (DIPSTICK) TRACE (Negative); URINE SPECIFIC GRAVITY 1.015 (1.005-1.035); URINE UROBILINOGEN 0.2 E.U./dl (0.2-1.0)
[2021-01-05] MEDS ORDERED: DOXYCYCLINE 10100 MG PO (19:49)
[2021-01-05] MEDS ORDERED: XARELTO15 MG PO (19:49)
[2021-01-05 20:39] VITALS: BP 176/84
== END 2021-01-05 21:25 | disposition home or self-care (01) ==
LOC: ER 17:13
PROVIDERS: Nurse Practitioner
DX: L03.116 Cellulitis of left lower limb (principal); I87.2 Venous insufficiency (chronic) (peripheral); I48.91 Unspecified atrial fibrillation; N18.9 Chronic kidney disease, unspecified; Z86.2 Personal history of diseases of the blood and blood-forming organs and certain disorders involving the immune mechanism; Z90.710 Acquired absence of both cervix and uterus; Z90.89 Acquired absence of other organs; Z79.899 Other long term (current) drug therapy

== ENCOUNTER 2021-01-11 13:27 | Emergency (ER) | payer OTHER ==
[~2021-01-11] VITALS: Ht 172.7 cm; Wt 59.0 kg
--- NOTE | ~2021-01-11 | EMS ---
[address] [address] EMS Patient Care Report Name: PASCUAL HAAS Room #: MIKE Moran#: [id number] Admission: 01/11/21 Attend Phys: Discharge: Date of : 42 Report #: [id number] THIS REPORT FOR: //name// Report Transmitted: 01/11/2021 14:04 EMS Care Summary [facility] MED-ACT Incident [id number] @ 01/11/2021 12:30 Incident Location [address] [place] [address] Patient PASCUAL HAAS Female, 80 Years 1940 Patient Address [address] [place] [address] Patient History Congestive Heart Failure (CHF),Hypertension (HTN),TIA, Patient Allergies No known allergies, Patient Medications Xarelto, Chief Complaint Cellulitis Disposition Transported No Lights/[place] Dispatch Reason Sick Person Transported To [facility] Narrative [id number] dispatched to a residence for a C1 sick person. Pt was found seated in a chair with home health on scene. [facility] [address] [place] [address] EMS Patient Care Report Name: PASCUAL HAAS Room #: REG Luisa#: [id number] Admission: 01/11/21 Attend Phys: Discharge: Date of : 42 Report #: [id number] Home health nurse stated that she called 911 for the pt due to her having cellulitis in her lower left leg. She stated that this was the first time she has seen the pt. Pt was seen at [facility] ER last week on 01/05 for the cellulitis and was written a prescription for doxyclicine. Pt stated that her leg has been getting worse over the past week. A paper prescription was given to the pt and she was discharged. Pt stated that she thinks she filled the script at her [facility]. We contacted the pharmacy and they had no record of the pt filling the prescription. Dr. Pinedo was contacted via his recorded line and it was recommended that the pt be taken back to [facility] for further evaluation. Swelling, redness and tenderness was noted to the lower left leg. Pt denied any chest pain, difficulty breathing, dizziness, head ache, N/V, or any other complaints at this time. Pt was assisted to the cot and transported non emergent to [facility] per her request. Initial Vitals @PTAP: 66,R: 14,BP: 186/82,Pain: 2/10,GCS: 15,SpO2: 96,Revised Trauma: 12, @13:08P: 57,R: 14,BP: 191/76,Pain: 3/10,GCS: 15,Temp: 98.2F,SpO2: 99,Revised Trauma: 12, @13:20P: 56,R: 14,BP: 146/87,GCS: 15,SpO2: 99,Revised Trauma: 12, Assessments @13:10MENTAL:Person Oriented,Time Oriented,Place Oriented,Event Oriented,SKIN:HEENT:Head/Face: No Abnormalities,Neck/Airway: No Abnormalities,LUNG SOUNDS:General: No Abnormalities,ABDOMEN:General: No Abnormalities,PELVIS//GI:No Abnormalities,EXTREMITIES:Left Leg: Edema,Left Arm: No Abnormalities,Right Arm: No Abnormalities,Right Leg: No Abnormalities,PULSE:NEURO:No Abnormalities, Impression Cellulitis Procedures @13:10Surgical Mask on PatientResponse: Unchanged Timeline SLEEVE SETTER LOCKSTITCH,BP: 186/82 M,PULSE: 66,RR: 14 R,SPO2: 96 Ox,ETCO2: ,BG: ,PAIN: 2,GCS: 15, 12:28,Call Received 12:28,Psap Call 12:30,Dispatched 12:31,En Route 12:37,On Scene 12:37,At Patient 13:07,Depart Scene 13:08,BP: 191/76 M,PULSE: 57,RR: 14 R,SPO2: 99 Ox,ETCO2: ,BG: ,PAIN: 3,GCS: 15, 13:10,Surgical Mask on Patient,Response: Unchanged [facility] [address] [place] [address] EMS Patient Care Report Name: PASCUAL HAAS Room #: REG [facility].#: [id number] Admission: 01/11/21 Attend Phys: Discharge: Date of : 42 Report #: [id number] 13:20,BP: 146/87 M,PULSE: 56,RR: 14 R,SPO2: 99 Ox,ETCO2: ,BG: ,PAIN: ,GCS: 15, 13:23,At Destination 13:35,Call Closed Disclaimer v1.1 Copyright 2020 [facility] This EMS Care Summary contains data elements from the applicable legal record (which may be displayed differently). It is designed to provide pertinent information for the following purposes: continuity of care, clinical quality, and state data reporting. The complete legal record is available to ED staff and administrators of the receiving hospital in [employer] Patient Tracker. All data is provided "as is."
[~2021-01-11 13:27] MED LIST changes: +DOXYCYCLINE 10100 MG PO; +XARELTO15 MG PO
[2021-01-11 13:58] LABS: ABSOLUTE NEUTROPHILS 4.7 thou/uL (1.4-8.2); BASOPHILS 0.5 % (0.0-2.0); EOSINOPHILS 1.5 % (0.0-3.0); HEMATOCRIT 36.4 % (37.0-47.0); HEMOGLOBIN 11.6 gm/dL (12.0-15.0); LYMPHOCYTES 17.6 % (24.0-44.0); MCH 32.7 pg (26.0-34.0); MCHC 31.8 g/dL (28.0-37.0); MCV 102.9 fL (80.0-100.0); MONOCYTES 8.9 % (1.0-8.0); POLYS 71.5 % (36.0-66.0); RBC 3.53 mil/uL (4.20-5.00); RDW 15.4 % (10.5-14.5); WBC 6.5 thou/uL (4.0-11.0)
[2021-01-11 14:01] LABS: CALCIUM 9.3 mg/dL (8.5-10.1); CREATININE 1.9 mg/dL (0.6-1.0); POTASSIUM 4.2 mmol/L (3.5-5.1)
[2021-01-11 14:10] LABS: PROTIME 11.1 Seconds (9.3-11.4)
[2021-01-11 14:17] LABS: ALBUMIN 4.2 g/dL (3.4-5.0); TOTAL BILIRUBIN 0.8 mg/dL (0.2-1.0); TOTAL PROTEIN 7.6 g/dL (6.4-8.2)
[2021-01-11 15:01] LABS: PLATELET COUNT 114 thou/uL (150-400); PLATELET ESTIMATE NORMAL
[2021-01-11] MEDS ORDERED: DOXYCYCLINE 10100 MG PO (17:34)
[2021-01-11 18:36] VITALS: BP 177/87
== END 2021-01-11 18:36 | disposition home or self-care (01) ==
LOC: ER 13:27
PROVIDERS: Emergency Medicine
DX: L03.116 Cellulitis of left lower limb (principal); Z79.899 Other long term (current) drug therapy; I48.91 Unspecified atrial fibrillation; N18.9 Chronic kidney disease, unspecified; Z86.2 Personal history of diseases of the blood and blood-forming organs and certain disorders involving the immune mechanism; Z90.89 Acquired absence of other organs; Z90.710 Acquired absence of both cervix and uterus; Z90.49 Acquired absence of other specified parts of digestive tract

== ENCOUNTER 2021-01-27 21:55 | Inpatient (IN) | payer OTHER ==
[~2021-01-27] VITALS: Ht 172.7 cm; Wt 59.1 kg
[2021-01-27 21:57] VITALS: BP 163/75
--- NOTE | 2021-01-27 23:41 | NUR ---
THIS NURSE ATTEMPTED TO OBTAIN IV ACCESS AND BLOOD. PRODUCTION GRIP ATTEMPTING TO OBATIN IV AT THIS TIME.
[2021-01-28 00:13] LABS: ABSOLUTE NEUTROPHILS 4.3 thou/uL (1.4-8.2); BASOPHILS 0.9 % (0.0-2.0); EOSINOPHILS 2.3 % (0.0-3.0); HEMATOCRIT 35.6 % (37.0-47.0); HEMOGLOBIN 11.6 gm/dL (12.0-15.0); LYMPHOCYTES 18.5 % (24.0-44.0); MCH 33.7 pg (26.0-34.0); MCHC 32.6 g/dL (28.0-37.0); MCV 103.3 fL (80.0-100.0); PLATELET COUNT 120 thou/uL (150-400); POLYS 68.3 % (36.0-66.0); RBC 3.45 mil/uL (4.20-5.00); RDW 15.1 % (10.5-14.5); WBC 6.3 thou/uL (4.0-11.0)
[2021-01-28 00:19] LABS: CREATININE 1.8 mg/dL (0.6-1.0); POTASSIUM 4.2 mmol/L (3.5-5.1)
[2021-01-28 00:50] LABS: APTT 25.6 Seconds (24.5-32.8); PROTIME 10.9 Seconds (9.3-11.4)
[2021-01-28 01:07] LABS: URINE BILIRUBIN NEGATIVE (Negative); URINE BLOOD NEGATIVE (Negative); URINE CLARITY CLEAR; URINE COLOR YELLOW; URINE GLUCOSE-RANDOM* NEGATIVE (Negative); URINE KETONES NEGATIVE (Negative); URINE NITRITE-REFLEX NEGATIVE (Negative); URINE PROTEIN (DIPSTICK) NEGATIVE (Negative); URINE UROBILINOGEN 0.2 E.U./dl (0.2-1.0)
[2021-01-28 01:08] LABS: URINE LEUKOCYTES-REFLEX 1+ (Negative)
[2021-01-28 01:35] LABS: BACTERIA-REFLEX 1-9 Few /HPF (None Seen); CASTS None Seen /LPF (None Seen); CRYSTALS None Seen /LPF (None Seen); MUCUS 4-6 Moderate strn/LPF (None Seen); SQUAMOUS 0-3 Few /LPF (0-3); URINE RBC 0-2 Rare /HPF (0-2); URINE WBC-REFLEX 6-15 Few /HPF (0-5)
[2021-01-28 02:17] VITALS: BP 133/58
[2021-01-28 03:00] VITALS: BP 166/73
[2021-01-28] MEDS ORDERED: ZOLOFT50 M1 PO (03:32)
--- NOTE | 2021-01-28 04:03 | NUR ---
PT ADMITTED INTO THE UNIT WITH C/O LLE EDEMA AND CELLULITIS.PT IS A/O X4.PT IS UP WITH X1 ASSIST AND SAYS SHE USES A WALKER AT HOME AND LIVES HOME ALONE.PT PT C/O PAIN ON LLE AND RIBS.PT IS CONTINENT TO B/B.PT C/O NEW CHECK BOOK BEIBG MISSING AT THE ER .PROSTHETIC LAB TECHNICIAN NOTIFIED .ADMISSION ASSESSMENTS AND PICTURES TAKEN .WILL CONTINUE TO MONITOR
[2021-01-28 07:55] VITALS: BP 135/50
--- NOTE | 2021-01-28 09:00 | NUR ---
WOUND CONSULT; THE PATIENT IS UP IN A CHAIR AT THIS TIME EATING BREAKFAST. THE LEFT LEG IS EDEMATOUS AND HOT TO TOUCH. NO WOUNDS OR DRAINAGE IS PRESENT. THE PATIENT IS ABLE TO STAND WITH ASSISTANCE. THERE IS A WOUND TO THE RIGHT BUTTOCK THAT MEANSURES; 2 X 2 X 0.1. RED WOUND BED, NO S/S OF INFECTION. NO DRAINAGE SEEN. RECCOMENDATIONS; ZGUARD TO THE RIGHT BUTTOCKS DISCUSSED WITH STAFF.
[2021-01-28 11:40] VITALS: BP 170/58
--- NOTE | 2021-01-28 12:35 | NUR ---
PT ADMITTED RELATED TO LLE EDEMA AND CELLULITIS. CM REVIEWED CHART AND SPOKE WITH CARE TEAM. CM MET WITH PT AT BEDSIDE THIS DAY. PT APPEARED TO MOSTLY A&O X4 BUT VERY SLEEPY. PT INDICATED SHE LIVES ALONE IN AN APARTMENT WITH7 STEPS TO ENTER AND NONE INSIDE. PT INDICATED SHE HAS A FWW FOR HOME USE. PT INDICATED HE HAD HH IN THE PAST AND HAS BEEN SKILLED. PT'S HAS FRIEND PORTIA JON LISTED CONTACT BUT SHE SAID SHE ISN'T A GOOD CONTACT THAT [facility] IS A GOOD CONTACT BUT SHE DOESN'T KNOW HER NUMBER. PT HAS BEEN TO [facility], AND [facility] HH IN THE PAST. PT'S PCP IS DR. RAPHAEL CHACKO. PT INDICATED SHE PLANS TO RETURN HOME [facility] ST[facility]. CM FOLLOWING REGARDING DC PLANNING.
[2021-01-28 16:20] VITALS: BP 128/59
[2021-01-28 20:00] VITALS: BP 130/65
--- NOTE | 2021-01-29 02:32 | NUR ---
PT CARE ASSUMED WITH PT IN BED AT 1900.PT IS A/O X4 AND SOMETIMES FORGETFUL.PT IS UP WITH X1 ASSIST TO BSC AND CHAIR.PT HAD TYLENOL FOR PAIN MANAGEMENT.PT APPEARED TO BE IN NO ACUTE DISTRESS.PT SPENT MOST OF THE SHIFT SLEEPING IN THE CHAIR.WILL CONTINUE TO MONITOR POC
[2021-01-29 06:56] LABS: HEMATOCRIT 32.2 % (37.0-47.0); HEMOGLOBIN 10.5 gm/dL (12.0-15.0); MCH 33.5 pg (26.0-34.0); MCHC 32.7 g/dL (28.0-37.0); MCV 102.5 fL (80.0-100.0); RBC 3.14 mil/uL (4.20-5.00); RDW 15.5 % (10.5-14.5); WBC 5.6 thou/uL (4.0-11.0)
[2021-01-29 07:12] LABS: CALCIUM 8.5 mg/dL (8.5-10.1); CREATININE 1.9 mg/dL (0.6-1.0); POTASSIUM 4.2 mmol/L (3.5-5.1)
[2021-01-29 07:19] VITALS: BP 165/81
--- NOTE | 2021-01-29 09:04 | HC ---
[facility] [place] [address] CONSULTATION Name: PASCUAL HAAS Room #: 453-P ADM IN M.R.#: [id number] Admission: 01/28/21 Attend Phys: Consuelo Luna MD Discharge: Date of : 41 Report #: [id number] THIS REPORT FOR: cc: Maxx Healy MD, David MD Barry,Joao Tucker MD ~ DATE OF SERVICE: 01/29/2021 INFECTIOUS DISEASE CONSULTATION ATTENDING PHYSICIAN: Dr. Luna. REASON FOR EVALUATION: Left lower extremity inflammatory eruption, likely multifactorial including skin and soft tissue infection with cellulitis. HISTORY OF PRESENT ILLNESS: Chart reviewed, patient examined. This is a 80-year-old woman with fairly significant medical history, has known vasculopathy, chronic anemia, lower extremity recurrent cellulitis involving the left, who presented with increasing pain in left lower extremity with inflammatory signs, specifically erythema and edema. She notes she has had this previously. At this point, she is sitting in the chair, is quite encephalopathic. It is difficult to ascertain details of her history. Does admit to pain. States the limb feels better, hanging down. Evaluation was undertaken. Renal insufficiency with creatinine of 1.8. Lactic acid was in normal range at 1.3. Urinalysis, 6-15 white cells. Venous Doppler showed no evidence of lower extremity DVT that had resolved since earlier this year when did have a DVT. Blood cultures are sterile thus far. She was empirically started on vancomycin. She has not been febrile, otherwise hemodynamically stable. ALLERGIES: None known. MEDICATIONS: Include mirtazapine, sertraline, amiodarone, atorvastatin, vancomycin, acetaminophen, ondansetron, rivaroxaban. PAST MEDICAL HISTORY: As described above, previous known coronary artery disease with aortocoronary bypass grafting, chronic venous stasis insufficiency with dermatitis of left lower extremity, osteoarthritis, chronic renal insufficiency, chronic anemia, cardiomyopathy, atrial fibrillation. SOCIAL HISTORY: Nonsmoker, no ethanol, no illicit drug use. FAMILY HISTORY: Noncontributory. REVIEW OF SYSTEMS: Otherwise, unremarkable. [facility] [address] [place] [address] CONSULTATION Name: PASCUAL HAAS Room #: 453-P [facility] IN .R.#: [id number] Admission: 01/28/21 Attend Phys: Consuelo Luna MD Discharge: Date of : 42 Report #: [id number] PHYSICAL EXAMINATION: GENERAL: She appears chronically ill and undernourished. She is sitting in chair listing to the left side. It is difficult to arouse. She speaks in one-word answers. VITAL SIGNS: 98.0, pulse 56, respirations 16, blood pressure 130/65. SKIN: Warm, dry, no rashes. HEENT: Normocephalic. Extraocular muscles intact. NECK: Supple. LUNGS: Diminished breath sounds. Scattered crackles at the bases. HEART: Irregular. Borderline bradycardic, do not appreciate a murmur. ABDOMEN: Soft, nontender. EXTREMITIES: Left lower extremity has clear asymmetrical swelling and erythema, is warm to touch. Does have some palpable tenderness. GENITOURINARY: Deferred. RECTAL: Deferred. LABORATORY DATA: Electrolytes: Sodium 146, potassium 4.2, chloride 112, bicarbonate is 28, anion gap of 6, BUN and creatinine 32 and 1.9, glucose of 94. CBC: White count 5.6, H and H 10.5 and 32.2, platelets of 116. Blood cultures, sterile thus far. 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 Venous Doppler, no evidence of DVT. Urinalysis described above. Lactic acid 1.3. ASSESSMENT AND PLAN: Left lower extremity inflammatory eruption, multifactorial. We will continue empiric therapy. We will check arterial Doppler, would be concerned about some claudication may be triggering event as well. At this point, there is no evidence of DVT. Secondly, probable urinary tract infection that may explain some of her encephalopathy as well. We will add gram-negative coverage in the interim pending the results of the urine culture. She remains quite tenuous at this point. Continue wound care as prescribed and see how she does clinically certainly at risk for complications. We will add incentive spirometry if she is able. <ELECTRONICALLY SIGNED> By: Joao Foss MD 01/29/21 0904 0743 0829 Joao Foss MD /nt
--- NOTE | 2021-01-29 16:11 | NUR ---
The staff called the pharmacist about the vancomycin trough, pharmacist Hans asked the staff to go ahead to give the scheduled vancomycin; report given to 4s nurse Nancy; the patient refused to have ultra sound this morning, but agreed to have it done when she felt better, Doctor Hakeem was aware and nurse Cruz agree to have the ultra sound done once the patient is ready.
--- NOTE | 2021-01-29 16:38 | NUR ---
Pt transferred to [facility] from 4W. A&ox4. C/o in LLE. LLE red and swollen. Pt prefers to stay in the recliner. IV antibiotic infusing. Call light within reach. Fall precautions in place.
[2021-01-29 16:41] VITALS: BP 165/80
[2021-01-29 19:52] VITALS: BP 144/72
--- NOTE | 2021-01-30 04:28 | NUR ---
Pt. care assumed at 2200 from day shift nurse. Patient was still awake. Transferred with 1 assist to bedside commode. No complaints of pain. Patient slept most of the shift production supervisor. Will continue to monitor.
[2021-01-30 08:05] VITALS: BP 178/76
--- NOTE | 2021-01-30 11:16 | NUR ---
Assumed pt care at 7am.Pt in and out of bed with walker and assist x1. Assessment completed,vss.Pt c/o generalized pain but refused tylenol.Assisted to bathroom as needed.Dr Palacio here,order noted.Fall bundle in place and pt encouraged to call for assist.Loer extremity us done early this am.Will discuss the result with pt when available.Pt in bed resting and watching tv. Will continue to monitor.
[2021-01-30 12:18] LABS: ALBUMIN 2.7 g/dL (3.4-5.0); CALCIUM 8.2 mg/dL (8.5-10.1); CREATININE 1.7 mg/dL (0.6-1.0); PHOSPHORUS 2.8 mg/dL (2.5-4.9); POTASSIUM 4.1 mmol/L (3.5-5.1); TOTAL BILIRUBIN 0.4 mg/dL (0.2-1.0); TOTAL PROTEIN 5.3 g/dL (6.4-8.2)
[2021-01-30 13:38] LABS: ABSOLUTE NEUTROPHILS 4.1 thou/uL (1.4-8.2); EOSINOPHILS 2.8 % (0.0-3.0); HEMATOCRIT 33.9 % (37.0-47.0); HEMOGLOBIN 10.8 gm/dL (12.0-15.0); LYMPHOCYTES 21.7 % (24.0-44.0); MCH 32.9 pg (26.0-34.0); MCHC 31.9 g/dL (28.0-37.0); MCV 103.2 fL (80.0-100.0); MONOCYTES 6.8 % (1.0-8.0); POLYS 67.7 % (36.0-66.0); RBC 3.28 mil/uL (4.20-5.00); RDW 15.6 % (10.5-14.5)
[2021-01-30 13:51] LABS: PLATELET COUNT 119 thou/uL (150-400)
[2021-01-30 16:50] VITALS: BP 136/63
[2021-01-30 20:10] VITALS: BP 151/70
[2021-01-31] VITALS (8 sets, daily range): BP systolic 108–158; BP diastolic 55–82
--- NOTE | 2021-01-31 02:23 | NUR ---
PT AOX4. PT REPORTS 7/10 PAIN IN LLE. PT HAS PRN PO APAP Q4HR AVAILABLE, REPORTS INEFFECTIVE. PT DENIES SOB WHILE ON ROOM AIR. EMERGENCY VEHICLE DISPATCHER ANALYTICAL DATA SCIENTIST NOTIFIED, EMAR UPDATED. PT RECEIVING PRN PO TRAMADOL Q6HR WITH POSITIVE EFFECT. PT TOLERATING PO INTAKE OF FLUIDS AND HEART HEALTHY DIET WITHOUT ISSUE. PT WITHOUT NAUSEA OR EMESIS. PT AMBULATING WITH WALKER AND X1 ASSIST TO BATHROOM, RESTING IN BED OTHERWISE. FREQUENT REPOSITIONING ENCOURAGED WHILE IN BED, PT INTERMITTENTLY REFUSING REPOSITIONING ASSISTANCE, PT WITH WEAKNESS, ABLE TO ASSIST SLIGHTLY WITH REPOSITIONING. PT DENIES NUMBNESS AND TINGLING, SENSATION INTACT, CAPILLARY REFILL LESS THAN 3SEC IN ALL EXTREMITIES. PT WITH +1 EDEMA IN BLE, BLE REMAIN ELEVATED. PT HAS PRN PO TORSEMIDE DAILY AVAILABLE, ANTICIPATES TAKING IN MORNING UPON REASSESSMENT. PT ENCOURAGED TO NOTIFY STAFF FOR ALL NEEDS, CALL LIGHT WITHIN REACH, BED ALARM ON, BED LOCKED IN LOWEST POSITION, FREQUENT MONITORING WILL CONTINUE.
[2021-01-31 08:38] LABS: ABSOLUTE NEUTROPHILS 3.4 thou/uL (1.4-8.2); EOSINOPHILS 3.3 % (0.0-3.0); HEMATOCRIT 33.7 % (37.0-47.0); HEMOGLOBIN 10.8 gm/dL (12.0-15.0); POLYS 62.7 % (36.0-66.0); RBC 3.28 mil/uL (4.20-5.00); RDW 15.4 % (10.5-14.5); WBC 5.4 thou/uL (4.0-11.0)
[2021-01-31 08:46] LABS: PLATELET COUNT 102 thou/uL (150-400)
[2021-01-31 08:50] LABS: ALBUMIN 2.8 g/dL (3.4-5.0); ANION GAP 10 mmol/L (7-16); BUN 29 mg/dL (7-18); CALCIUM 8.7 mg/dL (8.5-10.1); CHLORIDE 110 mmol/L (98-107); CO2 25 mmol/L (21-32); CREATININE 1.7 mg/dL (0.6-1.0); DIRECT BILIRUBIN < 0.1 mg/dL (<0.1-0.2); GLUCOSE 86 mg/dL (74-106); POTASSIUM 4.1 mmol/L (3.5-5.1); SGOT 23 U/L (15-37); SGPT 20 U/L (14-59); SODIUM 145 mmol/L (136-145); TOTAL BILIRUBIN 0.3 mg/dL (0.2-1.0); TOTAL PROTEIN 5.8 g/dL (6.4-8.2)
--- NOTE | 2021-01-31 10:17 | NUR ---
Assess due to pt with recurrent LLE, cellulitis. Hx PAD. Wound care has assesed-left leg edematous, and buttocks red without s/s infection. Eats well and no wt loss for past 2 years. Low nutrition risk.
--- NOTE | 2021-01-31 11:06 | NUR ---
WOUND CARE F/U; UP IN CHAIR, ALERT, PLEASANT, COOPERATIVE, STATES BUTTOCKS WOUND 'FEELS BETTER', SCANT SEROUS PINK DRAINAGE ON DRSG W/ BRIGHT RED BLOOD OUTER WOUND, HEALINGN NO S/S INFECTION, SEE PROCESS INTERVENTION FOR WOUND DETAILS, ZGUARD APPLIED COVERED W/ BORDER FOAM DRSG, ENCOURAGE PT TO NOT SIT LONG PERIODS, SITTING ON PILLOW AND OFF LOADING, PRESSURE RELIEF, LOW AIR LOSS PUMP ORDERED FOR PT RECOMMENDATIONS; CONT ZGUARD, BORDER FOAM DRSG DAILY AND PRN, LOW AIR LOSS PUMP TO BED, DO NOT SIT LONG PERIODS, TURN Q 2 HOURS AT HS STAFF NURSE AWARE
--- NOTE | 2021-01-31 11:25 | NUR ---
ASSUMED PT CARE THIS AM. PT VSS, A&OX4. PATIENT COMPLAINED OF PAIN 6/10 IN LEFT LOWER EXTREMETY, RESPONDED WELL TO PAIN MED GIVEN PER EMAR. IV PATENT, MEDS INFUSIED WITHOUT COMPLAINT. PATIENT MADE NPO FOR ANGIOGRAM. EDEMA NOTED IN BOTH LOWER EXTREMETIES, WITH LEFT LOWER EXTREMITY MORE EDEMATOUS. AMBULATORY TO THE BATHROOM WITH ASSIST. REMAINS CONTINENT. REPORTING NO NUMBNESS OR TINGLING. FALL PRECAUTIONS ARE IN PLACE.
--- NOTE | 2021-01-31 18:50 | NUR ---
PT TRASFERED FROM [facility]. HAD CARDIAC CATH AND LERO. RIGHT GROIN INCISION C/D/I. NO HEMATOMA NOTED. VSS. NO CONCERNS AT THIS TIME.
[2021-02-01 04:45] VITALS: BP 133/63
[2021-02-01 04:54] LABS: HEMATOCRIT 27.1 % (37.0-47.0); MCH 33.6 pg (26.0-34.0); MCHC 33.1 g/dL (28.0-37.0); MCV 101.7 fL (80.0-100.0); RBC 2.67 mil/uL (4.20-5.00); RDW 15.2 % (10.5-14.5); WBC 8.1 thou/uL (4.0-11.0)
[2021-02-01 04:58] LABS: CALCIUM 7.7 mg/dL (8.5-10.1); CREATININE 1.6 mg/dL (0.6-1.0); POTASSIUM 4.6 mmol/L (3.5-5.1)
[2021-02-01 08:10] VITALS: BP 113/86
[2021-02-01 08:21] LABS: % SATURATION 17 % (20-39); IRON 22 ug/dL (50-170); TIBC 132 ug/dL (250-450)
[2021-02-01 08:48] LABS: FOLIC ACID 19.9 ng/mL (8.6-58.9)
[2021-02-01 11:45] VITALS: BP 90/50
[2021-02-01 15:01] LABS: HEMATOCRIT 25.5 % (37.0-47.0); HEMOGLOBIN 8.4 gm/dL (12.0-15.0); MCHC 32.9 g/dL (28.0-37.0); MCV 103.4 fL (80.0-100.0); RBC 2.47 mil/uL (4.20-5.00); RDW 15.5 % (10.5-14.5)
--- NOTE | 2021-02-01 15:19 | NUR ---
spoke with patient post therapy evals. Patient would benefit from post acute care. 5N to eval. Patient agreeable to [facility] if not accepted to acute rehab.
[2021-02-01 15:50] VITALS: BP 93/47
--- NOTE | 2021-02-01 16:44 | NUR ---
FAXED REFERRAL TO [facility] RECEIVED TRI AND SPOKE WITH ARNOLD IN ADM SHE HAS LEFT FOR THE DAY AND WILL REVIEW REFERRAL TOMORROW. SHE WILL NEED TO SPEAK WITH PT REGARDING FINANCIAL FROM PREVIOUS STAY.
--- NOTE | 2021-02-01 17:32 | EKG ---
[address] [place] [employer] [place] [address] ELECTROCARDIOGRAM REPORT Name: PASCUAL HAAS Room #: 208-P ADM IN M.R.#: [id number] Admission: 01/28/21 Attend Phys: Consuelo Luna MD Discharge: Date of : 41 Report #: [id number] [facility] Test Date: 2021-02-01 Test Time: 15:25:04 Pat Name: PASCUAL HAAS Department: Room: 208 P Gender: F Health Actuary: FSCHWALGABY : 1940 Requested By: Victor Hugo Rose Order Number: [id number] MD: Isiah Bro Measurements Intervals [place] Rate: 70 P: -26 CT: 185 QRS: 10 QRSD: 105 T: 162 QT: 445 QTc: 481 Interpretive Statements Sinus rhythm Probable LVH with secondary repol abnrm Compared to ECG 04/25/2019 12:52:41 No significant change was found Electronically Signed On 02-01-2021 17:32:30 CDT by Isiah Bro [email or web address] <ELECTRONICALLY SIGNED> By: Isiah Bro MD, [facility] 02/01/21 1732 1525 1525 Isiah Bro MD, [facility] /EPI
--- NOTE | 2021-02-01 17:51 | CATHLAB ---
[facility] [place] [address] [place] [address] INVASIVE PROCEDURE REPORT Name: PASCUAL HAAS Room #: 208-P ADM IN M.R.#: [id number] Admission: 01/28/21 Attend Phys: Consuelo Luna MD Discharge: Date of : 41 Report #: [id number] THIS REPORT FOR: cc: Maxx Healy MD, David MD Mancuso, Gerald M. MD [facility] ~ APPROVED REPORT Study performed: 01/31/2021 16:03:07 Patient Details Patient Status: In-Patient Room #: The patient is a 80 year-old female Event Personnel Tennille Pena(R)() Del Taylor Gerald Drag Out Man, Diann Sanabria Monitor, Chris Elmore casino gaming inspector Performed Left Heart Cath w/or w/o Coronaries [id number] [facility] Hemostasis w/ Mynx 73030 Initial Mod Sed Same Phys/QHP Gr5y [id number] 73940 Mod Sed Same Phys/QHP Ea 883136 Indication Chest pain Procedure Narrative The was infiltrated with 1% Lidocaine subcutaneous anesthesia. A SHEATH BRITE-TIP 6F X 11CM ([id number]) sheath was inserted into the RFA^. Coronary angiography was performed using coronary diagnostic catheters. The right coronary system was accessed and visualized with a JR4 catheter. The left coronary system was accessed and visualized with a JL4 catheter. The left ventricle was accessed and visualized with a STR PIG catheter. There was no hematoma. Intraoperative Conscious Sedation Sedation start time: 1646 Case end Time: 1715 Fentanyl 200 mcg Versed 1 mg Fluoro Time: 28.30 minutes Dose: DAP 55606.60 cGycm2 214 mGy Contrast Type and Amount: Visipaque 110 ml [facility] [place] [address] INVASIVE PROCEDURE REPORT Name: PASCUAL HAAS Room #: 208-P [facility].#: [id number] Admission: 01/28/21 Attend Phys: Fabricio Rubio Discharge: Date of : 42 Report #: [id number] Hemodynamics The aortic pressure is 153/65 mmHg with a mean of 82 mmHg. The left ventricular pressure is 162/21 mmHg with a mean of mmHg. The left ventricular end diastolic pressure is 36 mmHg. PCI Technique Lesion Percutaneous coronary intervention was performed on the Popliteal. PCI Technique Lesion 2 Percutaneous Coronary Intervention was performed on the Superficial Femoral. Conclusion #1. High-grade distal left main disease subtotal giving rise to a occluded LAD and a remnant of a circumflex artery. #2 LAD is proximally occluded fills via a OLSEN graft. #3 the [place] circumflex is a small segment opened in the AV groove the OM branches are occluded proximally. The single OM branch is minimal distribution distal left main intervention does not appear that it would benefit significantly. #4 the OLSEN to the LAD is intact mild irregularity the LAD is moderately diseased after the anastomosis and then subtotaled in the mid LAD filling the apex. May be a potential site for intervention #5 the [place] right coronary is occluded #6 a vein graft which is large and mildly ectatic with a 5060% proximal lesion filling a PDA and a CHUYITA jump graft this inferior wall system is patent and diffusely diseased via these vein grafts. Some collateral filling to the OM system #7 there is an SVG also moderately disease 40% filling a OM branch which distally and retrograde fills the circumflex and a distal OM branch. No indication for intervention here. This appears to fill a diagonal in sequence. Recommendations and plan: Continue aggressive risk factor modification. The only potential site for intervention would be the mid LAD through the OLSEN graft. Consideration of distal left main intervention although filling a small circumflex in the AV groove the OM branch is bypassed stated above. Will opt for continued medical therapy and would need to evaluate the extent of the ischemia on [address] [address] INVASIVE PROCEDURE REPORT Name: PASCUAL HAAS Room #: 208-P [facility].#: [id number] Admission: 01/28/21 Attend Phys: Fabricio Rubio Discharge: Date of : 42 Report #: [id number] testing if there are symptoms. Chronic kidney disease prohibit the use of more contrast at this study. <ELECTRONICALLY SIGNED> By: Dwayne Mathis MD, FAC 02/01/211750 50 50 Dwayne Mathis MD, [facility] /INF
--- NOTE | 2021-02-01 18:05 | NUR ---
RECEIVED PT'S CARE AROUND 0720; PT. ON BED; RESTING WITH EYES CLOSED; EQUAL CHEST RISING NOTICED; AFIB ON THE MONITOR; DURING AM ASSESSMENT PT. AOX4; FORGETFUL THROUGH THE DAY; C/O PAIN OVER ANKLES; CRYING; PRN PAIN MEDICATION GIVEN WITH AM MEDICATIONS; REASSESSMENT PT. ST. NO CHANGE ON PAIN; PT. RESTING OVER CHAIR; CALM; REQUESTED SUCKS TO BE PUT ON; PHYSICIAN NOTIFIED ABOUT PAIN; NO NEW ORDERS; DURING DR. ANGELES ROUNDING; PT. UPSET; IRRITABLE; REQUESTED TO TALK WITH DR. PEREIRA; EDUCATED ABOUT THE DIFFERENT ROLES; PT. UPSET; ST. "IF THAT'S HOW IT IS THEN I AM GOING HOME"; SOD FARMER EXPLAINED ABOUT PT. HAVING THE RIGHT TO LEAVE, BUT PAIN WILL NOT BE MANAGED; NO ANSWER; AROUND NOON PT. REQUESTED PRN PAIN MEDICATION; SBP ON THE 90s; EDUCATED ABOUT THE POSSIBLE CONSEQUENCES OF GIVEN PRN PAIN MEDICATION; OFFERED ACETAMINOPHEN; REFUSED IT; ST. "IT DOES NOT WORK"; WORKED WITH PT DURING THE AFTERNOON; PER PT. REPORT WHILE PT. AMBULATING C/O WEAKNESS AND NAUSEA; ABLE TO RETURN TO ROOM ON CHAIR; PRN ANTINAUSEA MEDICATION GIVEN; SBP ON THE 70s; PT. LOOKED PALE; CARDIOLOGY PAGED; DR. ANGELES NOTIFIED; ORDERS ON PLACED; ORDERS RECEIVED; 500 ML BOLUS STARTED; PT. ON THE BED; CALM; UPDATED; MONITORING; DR. ANGELES REQUESTED TROPONIN LEVELS; ORDERS PUT ON THE SYSTEM BY SOD FARMER; DURING THE AFTERNOON PT. ABLE TO REST; SBP ON THE 90s; NO ABLE TO HAVE BM; SR ON THE MONITOR DURING THE AFTERNOON; ASSESSMENT CHARGED; FOLLOWING POC; WILL PASS ON REPORT;
[2021-02-01 20:15] VITALS: BP 99/59
[2021-02-02] VITALS (9 sets, daily range): BP systolic 102–140; BP diastolic 57–68
[2021-02-02 05:31] LABS: HEMOGLOBIN 6.8 gm/dL (12.0-15.0)
[2021-02-02 05:33] LABS: HEMATOCRIT 20.7 % (37.0-47.0); MCH 33.8 pg (26.0-34.0); MCHC 32.8 g/dL (28.0-37.0); MCV 102.9 fL (80.0-100.0); RBC 2.01 mil/uL (4.20-5.00); RDW 15.6 % (10.5-14.5); WBC 6.4 thou/uL (4.0-11.0)
--- NOTE | 2021-02-02 09:25 | NUR ---
ASSUMED PT CARE AT 0700. PT SITTING UP IN THE CHAIR. PT PREPARING TO GO TO CT. 0850, PT ASSESSMENT CHARTED PERFORMED, VSS. PT EDUCATED ON BLOOD TRANSFUSION. PTS IV INFILTRATED. PT VOICES CONCERNS ABOUT STARTING A NEW IV. PT IS VERY SHORT IN RESPONSES WITH A FLAT AFFECT. WILL CONTINUE TO MONITOR AND FOLLOW POC.
--- NOTE | 2021-02-02 12:14 | NUR ---
PT IN BED, IV TEAM HAS ARRIVED TO BEGIN NEW IV ON PATIENT. ASSESSMENT PERFORMED CHARTED. VSS. WILL CONTINUE TO MONITOR AND FOLLOW POC.
--- NOTE | 2021-02-02 13:24 | NUR ---
PTS FIRST UNIT OF BLOOD STARTED. NO REACTIONS REPORTED. VSS. WILL CONTINUE TO MONITOR. AND FOLLOW POC.
--- NOTE | 2021-02-02 14:13 | NUR ---
Note Given: Y Facility List Provided:Y Facility Katerina: None chosen at this time Kaia Aleman NP discussed BPCI with this pt 01/31/2021
--- NOTE | 2021-02-02 16:04 | NUR ---
patient with low hemoglobin GI consulted. 5N following, referral to [facility].
--- NOTE | 2021-02-02 16:11 | NUR ---
PT RECEIVING BLOOD. ASSESSMENT PERFORMED. PT RESTING. WILL CONTINUE TO MONITOR AND FOLLOW POC.
[2021-02-02 20:40] LABS: ABSOLUTE RETIC COUNT 0.0228 10^6/uL; OBSERVED RETIC COUNT 1.14 % (0.6-2.6)
[2021-02-02 20:52] LABS: ALBUMIN 2.1 g/dL (3.4-5.0); DIRECT BILIRUBIN < 0.1 mg/dL (<0.1-0.2); SGOT 26 U/L (15-37); SGPT 15 U/L (14-59); TOTAL BILIRUBIN 0.3 mg/dL (0.2-1.0); TOTAL PROTEIN 4.9 g/dL (6.4-8.2)
[2021-02-02 21:03] LABS: APTT 26.5 Seconds (24.5-32.8); INR 0.99; PROTIME 10.8 Seconds (9.3-11.4)
[2021-02-03 05:03] VITALS: BP 136/77
[2021-02-03 06:10] LABS: CALCIUM 7.9 mg/dL (8.5-10.1); CREATININE 1.9 mg/dL (0.6-1.0); POTASSIUM 3.7 mmol/L (3.5-5.1)
[2021-02-03 07:28] VITALS: BP 126/64
[2021-02-03 07:45] LABS: HEMATOCRIT 32.1 % (37.0-47.0); HEMOGLOBIN 10.4 gm/dL (12.0-15.0); MCH 31.2 pg (26.0-34.0); MCHC 32.2 g/dL (28.0-37.0); MCV 96.9 fL (80.0-100.0); RBC 3.31 mil/uL (4.20-5.00); RDW 19.6 % (10.5-14.5); WBC 6.7 thou/uL (4.0-11.0)
--- NOTE | 2021-02-03 09:43 | NUR ---
WOUND CARE F/U; AWAKE, ALERT, COOPERATIVE, STATES R BUTTOCK WOUND 'FEELS BETTER' DENIES PAIN, WOUND HEALING, SCANT DRAINAGE, NO S/S INFECTION, ENCOURAGED TO NOT SIT LONG PERIODS, SITTING ON PILLOW, LOW AIR LOSS MATTRESS ON BED, SEE PROCESS INTERVENTION FOR WOUND DETAILS RECOMMENDATIONS; CONT CURRENT POC OF AMY PETER DRSG, TURN Q 2HOURS WHEN IN BED, OFF LOADING, PRESSURE RELIEF DIGITAL MARKETING PROGRAM MANAGER AWARE
[2021-02-03 11:23] VITALS: BP 132/60
--- NOTE | 2021-02-03 13:39 | NUR ---
5N continuing to follow but concerned about pt's ability to return home alone at dc. SNF BPCI listing reviewed with the pt at bedside. She would consider [facility] of OP or [facility]. [facility] admissions would need to talk with the pt regarding her outstanding debt from a prior stay but they will come on site if needed. The pt contends that her plan is to get stronger and return home. She reports that she no longer has a relationship with Shannan Remy [phone] who was her friend and neighbor. She does not want her as a spokesperson or emergency contact. Shannan had been very involved with helping her maintain indep living in her home and at one point may have been DPOA. The pt reports she is reaching out to another friend as she does not have family. She acknowledged she does need a DPOA and someone to help with her future care needs. She is open to 5N, SNF or pending her progress. Possible dc 1-2 days pending her hgb. She was anemic with hgb of 6.2 yesterday and 2 units of PRBC. She declined an EGD or further workup. 5N to see how she does in therapy in the am. Dc environmental restoration planner is sending referrals to [facility] of OP and [facility]. Will follow.
[2021-02-03 15:19] VITALS: BP 119/60
--- NOTE | 2021-02-03 15:51 | NUR ---
PT ON SERVICE WITH [facility] FAXED CLINICAL UPDATE RECEIVED CONFIRMAITON AND LEFT MS WITH INTAKE.
[2021-02-03 16:06] LABS: HEMOGLOBIN 9.3 g/dL (11.1-15.9)
[2021-02-03 19:20] VITALS: BP 142/70
[2021-02-04 04:30] VITALS: BP 133/70
[2021-02-04 05:09] LABS: HEMATOCRIT 31.1 % (37.0-47.0); HEMOGLOBIN 10.2 gm/dL (12.0-15.0); MCH 31.6 pg (26.0-34.0); MCHC 32.6 g/dL (28.0-37.0); MCV 96.8 fL (80.0-100.0); RBC 3.21 mil/uL (4.20-5.00); RDW 19.2 % (10.5-14.5)
[2021-02-04 05:14] LABS: CALCIUM 8.3 mg/dL (8.5-10.1); CREATININE 1.8 mg/dL (0.6-1.0); MAGNESIUM 1.9 mg/dL (1.8-2.4); POTASSIUM 4.3 mmol/L (3.5-5.1)
[2021-02-04 07:12] VITALS: BP 1455/70
--- NOTE | 2021-02-04 07:30 | NUR ---
ASSUME CARE 1900. PT/VITALS STABLE. INTERMITTENT LEFT LEG PAIN. MODERATE TOLERANCE TO ACTIVITY. ASSESSMENTS CHARTED. PROGRESSING TOWARDS POC. PLAN IS TO CONITNUE TO MONITOR HGB LEVELS AND EVELUATION FOR POSSIBLE DISCHARGE TO 5N TODAY. WILL CONTINUE TO MONITOR AND FOLLOW WITH POC
--- NOTE | 2021-02-04 10:58 | NUR ---
5N declined the pt and [facility] was here for onsite eval this am. They have accepted for SNF stay and the pt is agreeable. DC anticipated later today. Chart copy in progress/124c completed. Dc cyber intel planner to fax orders and arrange time for w/c transport. Nursing to call report.
[2021-02-04 11:39] VITALS: BP 138/67
--- NOTE | 2021-02-04 11:43 | NUR ---
FAXED NEGATIVE COVID TEST (02/04/21) AND TODAY'S THERAPY NOTES TO HEL[facility] FR[facility] AT [facility]. WILL FAX DISCHARGE ORDERS AND SUMMARY WHEN COMPLETED. VAN TENTATIVELY ARRANGED BY [facility] FOR THIS AFTERNOON BETWEEN 14-15:00. [facility] P [phone]; FAX [phone]; [facility] [phone].
[2021-02-04] MEDS ORDERED: MINOCYCLINE 5050 M1 PO (12:16)
[2021-02-04] MEDS ORDERED: CLOPIDOGREL75 MG PO (12:19)
[2021-02-04] MEDS ORDERED: IMDUR 30 MG TAB30 M1 PO (12:20)
[2021-02-04] MEDS ORDERED: TRAMADOL 50 MG50 MG PO (12:22)
--- NOTE | 2021-02-04 13:12 | NUR ---
FAXED DISCHARGE ORDERS AND SUMMARY TO [facility]. CONFIRMED WITH [facility] THAT THEY RECEIVED. WHEELCHAIR VAN TO COAL GASIFICATION TECHNICIAN PATIENT AT 15:30-16:00. NOTIFIED CHARGE NURSE OF TIME. CHART COPY REQUESTED. [facility] P [phone]; FAX [phone]
[2021-02-04 15:06] VITALS: BP 135/58
--- NOTE | 2021-02-04 15:55 | NUR ---
ASSUMED CARE SHIFT CHANGE. ASSESSMETNS CHARTED.MEDS GIVEN. VSS. C/O PAIN MANAGED PO PAIN MEDS. PT UP X1 TOLERATING WELL. L LEFT REMAINS EDEMETOUS. NIA. LACTATE GIVEN PER ORDERS. DC ORDERS ACKNOWLEDGED/IMPLEMENTED. IGNITE FACILITY. WILL CALL REPORT TO FACILITY. PT LEFT UNIT APPROX 1530 WC TRANSPORT. ALL BELONGINGS TAKEN. IV REMOVED. TELE REMOVED.
[2021-02-04 16:06] LABS: GLOBULIN TOTAL 1.7 g/dL (2.2-3.9); M-SPIKE Not Observed g/dL (Not Observed)
== END 2021-02-04 15:50 | DRG 270 ==
LOC: ER 21:55 → 4S 01-28 01:51 → EROBS 01-28 01:51 → 4W 01-28 01:51 → 4S 01-29 16:21 → 2N 01-31 17:31
PROVIDERS: Emergency Medicine; Internal Medicine; Internal Medicine Hematology & Oncology; Nurse Practitioner; Nurse Practitioner Adult Health; Nurse Practitioner Family; Specialist; ADMIT Hospitalist; ATTEND Hospitalist
PROC: B215YZZ Fluoroscopy of Left Heart using Other Contrast (ICD-10-PCS; principal; 2021-01-31)
PROC: 047N3DZ Dilation of Left Popliteal Artery with Intraluminal Device, Percutaneous Approach (ICD-10-PCS; principal; 2021-01-31)
PROC: B4181ZZ Fluoroscopy of Bilateral Renal Arteries using Low Osmolar Contrast (ICD-10-PCS; principal; 2021-01-31)
PROC: B211YZZ Fluoroscopy of Multiple Coronary Arteries using Other Contrast (ICD-10-PCS; principal; 2021-01-31)
PROC: B41D1ZZ Fluoroscopy of Aorta and Bilateral Lower Extremity Arteries using Low Osmolar Contrast (ICD-10-PCS; principal; 2021-01-31)
PROC: 04CN3ZZ Extirpation of Matter from Left Popliteal Artery, Percutaneous Approach (ICD-10-PCS; principal; 2021-01-31)
PROC: 04CL3ZZ Extirpation of Matter from Left Femoral Artery, Percutaneous Approach (ICD-10-PCS; principal; 2021-01-31)
PROC: 047L3DZ Dilation of Left Femoral Artery with Intraluminal Device, Percutaneous Approach (ICD-10-PCS; principal; 2021-01-31)
PROC: 4A023N7 Measurement of Cardiac Sampling and Pressure, Left Heart, Percutaneous Approach (ICD-10-PCS; principal; 2021-01-31)
PROC: 30233N1 Transfusion of Nonautologous Red Blood Cells into Peripheral Vein, Percutaneous Approach (ICD-10-PCS; 2021-02-02)
DX: I73.9 Peripheral vascular disease, unspecified (principal); E43 Unspecified severe protein-calorie malnutrition; L03.116 Cellulitis of left lower limb; N39.0 Urinary tract infection, site not specified; E46 Unspecified protein-calorie malnutrition; N18.4 Chronic kidney disease, stage 4 (severe); I48.20 Chronic atrial fibrillation, unspecified; Z68.1 Body mass index [BMI] 19.9 or less, adult; Z20.822 Contact with and (suspected) exposure to COVID-19; Z96.641 Presence of right artificial hip joint; Z90.710 Acquired absence of both cervix and uterus; M19.90 Unspecified osteoarthritis, unspecified site; I25.5 Ischemic cardiomyopathy; S09.90XA Unspecified injury of head, initial encounter; I25.10 Atherosclerotic heart disease of native coronary artery without angina pectoris; I87.2 Venous insufficiency (chronic) (peripheral); Z60.2 Problems related to living alone; R53.81 Other malaise; R63.4 Abnormal weight loss; Z95.1 Presence of aortocoronary bypass graft; G47.00 Insomnia, unspecified; E53.8 Deficiency of other specified B group vitamins; I48.0 Paroxysmal atrial fibrillation; F32.9 Major depressive disorder, single episode, unspecified; D50.9 Iron deficiency anemia, unspecified; D69.6 Thrombocytopenia, unspecified; I12.9 Hypertensive chronic kidney disease with stage 1 through stage 4 chronic kidney disease, or unspecified chronic kidney disease; K59.00 Constipation, unspecified; Z86.718 Personal history of other venous thrombosis and embolism; X58.XXXA Exposure to other specified factors, initial encounter; Y93.89 Activity, other specified; Y92.89 Other specified places as the place of occurrence of the external cause; Y99.8 Other external cause status; Z82.49 Family history of ischemic heart disease and other diseases of the circulatory system; Z90.49 Acquired absence of other specified parts of digestive tract; Z79.82 Long term (current) use of aspirin; Z79.899 Other long term (current) drug therapy
CPT/HCPCS: 10040; 10081; 10195

== ENCOUNTER 2021-04-06 12:51 | Emergency (ER) | payer OTHER ==
[~2021-04-06] VITALS: Ht 167.6 cm; Wt 61.2 kg
[~2021-04-06 12:51] MED LIST changes: +CLOPIDOGREL75 MG PO; +IMDUR 30 MG TAB30 M1 PO; +MINOCYCLINE 5050 M1 PO; +TRAMADOL 50 MG50 MG PO; +ZOLOFT50 M1 PO
[2021-04-06 13:17] LABS: ABSOLUTE NEUTROPHILS 3.5 thou/uL (1.4-8.2); BASOPHILS 0.7 % (0.0-2.0); EOSINOPHILS 0.8 % (0.0-3.0); HEMATOCRIT 32.7 % (37.0-47.0); HEMOGLOBIN 10.7 gm/dL (12.0-15.0); LYMPHOCYTES 16.6 % (24.0-44.0); MCH 33.2 pg (26.0-34.0); MCHC 32.9 g/dL (28.0-37.0); MCV 100.9 fL (80.0-100.0); MONOCYTES 9.8 % (1.0-8.0); PLATELET COUNT 110 thou/uL (150-400); POLYS 72.1 % (36.0-66.0); RBC 3.24 mil/uL (4.20-5.00); RDW 17.9 % (10.5-14.5); WBC 4.9 thou/uL (4.0-11.0)
[2021-04-06 13:40] LABS: ANION GAP 14 mmol/L (7-16); BUN 32 mg/dL (7-18); CALCIUM 9.2 mg/dL (8.5-10.1); CHLORIDE 107 mmol/L (98-107); CO2 23 mmol/L (21-32); CREATININE 1.7 mg/dL (0.6-1.0); GLUCOSE 103 mg/dL (74-106); POTASSIUM 3.8 mmol/L (3.5-5.1); SODIUM 144 mmol/L (136-145)
[2021-04-06 13:45] LABS: ALBUMIN 3.6 g/dL (3.4-5.0); SGOT 57 U/L (15-37); SGPT 56 U/L (14-59); TOTAL BILIRUBIN 0.6 mg/dL (0.2-1.0); TOTAL PROTEIN 7.4 g/dL (6.4-8.2); TROPONIN-I <0.06 ng/mL (<0.06)
[2021-04-06] MEDS ORDERED: DOXYCYCLINE 10100 MG PO (15:06)
--- NOTE | 2021-04-06 15:37 | EKG ---
[place] [address] [facility] [employer] [place] [address] ELECTROCARDIOGRAM REPORT Name: PASCUAL HAAS Room #: REG Luisa#: [id number] Admission: 04/06/21 Attend Phys: Discharge: Date of : 42 Report #: [id number] [facility] ED Test Date: 2021-04-06 Test Time: 13:03:45 Pat Name: PASCUAL HAAS Department: Room: Gender: F Bicycle Rental Clerk: ROMULO : 1940 Requested By: Andree Nails Order Number: [id number] MD: Akbar Owen Measurements Intervals Mercer Rate: 63 P: -8 NC: 189 QRS: -9 QRSD: 101 T: 149 QT: 479 QTc: 491 Interpretive Statements Sinus rhythm Inferior infarct, old Lateral leads are also involved Compared to ECG 02/01/2021 15:25:04 Myocardial infarct finding now present Electronically Signed On 04-06-2021 15:36:52 CDT by Akbar Owen [email or web address] <ELECTRONICALLY SIGNED> By: Akbar Owen MD, [facility] 04/06/21 1536 1303 1303 Akbar Owen MD, FACC /EPI
[2021-04-06 18:00] VITALS: BP 139/60
== END 2021-04-06 20:33 | disposition home or self-care (01) ==
LOC: ER 12:51
PROVIDERS: Physician Assistant
DX: N17.9 Acute kidney failure, unspecified (principal); R07.89 Other chest pain; R53.1 Weakness; L03.116 Cellulitis of left lower limb; E78.5 Hyperlipidemia, unspecified; I25.10 Atherosclerotic heart disease of native coronary artery without angina pectoris; Z86.718 Personal history of other venous thrombosis and embolism; Z79.899 Other long term (current) drug therapy

== ENCOUNTER 2021-05-24 20:21 | Inpatient (IN) | payer OTHER ==
[~2021-05-24] VITALS: Ht 170.2 cm; Wt 58.1 kg
--- NOTE | ~2021-05-24 | EMS ---
[address] [address] EMS Patient Care Report Name: PASCUAL HAAS Room #: MIKE Moran#: [id number] Admission: 05/24/21 Attend Phys: Discharge: Date of : 42 Report #: [id number] THIS REPORT FOR: //name// Report Transmitted: 05/24/2021 20:05 EMS Care Summary [facility] MED-ACT Incident [id number] @ 05/24/2021 19:37 Incident Location [address] [place] [address] Patient PASCUAL HAAS Female, 80 Years 1940 Patient Address [address] [place] [address] Patient History Congestive Heart Failure (CHF),Hypertension (HTN),TIA,Coronary Artery Bypass Graft (CABG),Cellulitis, Patient Allergies No known allergies, Patient Medications Trazodone, Clopidogrel, Sertraline, Atorvastatin, Ondansetron, Amiodarone, Chief Complaint abd. pressure Disposition Transported No Lights/[place] Dispatch Reason Chest Pain (Non-Traumatic) Transported To [facility] Narrative Arrive to find the pt sitting upright in a recliner in the front room of her [address] [address] EMS Patient Care Report Name: PASCUAL HAAS Room #: REG [place].#: [id number] Admission: 05/24/21 Attend Phys: Discharge: Date of : 42 Report #: [id number] apartment being assessed by [facility]. Pt reports that she is having abd. pressure just below her rib cage on the left side. Pt says it started this morning and has been pretty constant. She rates it at 5/10. Pt says that her last bowel movement was yesterday. Pt is also complaining of leg pain from her cellulitis and pain on her rear end where she has pressure sores. Pt denies any SOB, CP, N/V, loss of consc., dizziness or any other pains or problems. VS and ECG done and there is a lot of artifact on the 4 lead. 12 lead attempted but too much artifact so cables are switched. 12 lead is done and pt says she can walk to the cot at the front door. Pt says she did not take anything today or do anything for her abd. pressure. Pt walks to the cot using her walker and is secured. Pt taken to ambulance. VS monitored and biocom to [facility] with no orders. Tx without change or incident. On arrival the pt is now reporting that she needs to have a BM. Pt is transferred to an ER monteiro bed and report to MD and RN at bedside. RN is informed of the pt's need to have a BM and she says they will get to it as soon as they can. Care is transferred. Initial Vitals @20:03P: 60,BP: 184/73,SpO2: 97, @19:50P: 60,[place] Suspected: false @20:12P: 64,R: 18,BP: 173/78,GCS: 15,SpO2: 100,Revised Trauma: 12, @PTAP: 60,R: 18,BP: 168/81,Pain: 5/10,GCS: 15,Temp: 98F,SpO2: 100,Revised Trauma: 12,[place] Suspected: false Impression Abdominal Pain Procedures @19:5012-Lead ECG Timeline DERRICK HAND,BP: 168/81 M,PULSE: 60,RR: 18 R,SPO2: 100 Ox,ETCO2: ,BG: ,PAIN: 5,GCS: 15, 19:34,Call Received 19:34,Psap Call 19:37,Dispatched 19:37,En Route 19:43,On Scene 19:44,At Patient 19:50,12-Lead ECG, 19:50,BP: / M,PULSE: 60,RR: R,SPO2: Ox,ETCO2: ,BG: ,PAIN: ,GCS: , 20:01,Depart Scene 20:03,BP: 184/73 M,PULSE: 60,RR: R,SPO2: 97 Ox,ETCO2: ,BG: ,PAIN: ,GCS: , 20:12,BP: 173/78 M,PULSE: 64,RR: 18 R,SPO2: 100 Ox,ETCO2: ,BG: ,PAIN: ,GCS: 15, 20:16,At Destination [address] [place] [address] EMS Patient Care Report Name: PASCUAL HAAS Room #: REG [facility].#: [id number] Admission: 05/24/21 Attend Phys: Discharge: Date of : 42 Report #: [id number] 20:36,Call Closed Disclaimer v1.1 Copyright 2020 [employer] This EMS Care Summary contains data elements from the applicable legal record (which may be displayed differently). It is designed to provide pertinent information for the following purposes: continuity of care, clinical quality, and state data reporting. The complete legal record is available to ED staff and administrators of the receiving hospital in [employer]'s Patient Tracker. All data is provided "as is."
[2021-05-24 20:22] VITALS: BP 186/76
--- NOTE | 2021-05-24 20:32 | NUR ---
ON ARRIVAL PT PLACE DIN HALLWAY BED DUE TO FULL ROOMS, PT STATING THAT SHE NEEDED TO USE RESTROOM. EXPLAINED TO PT THAT SOON WE CLEANED A ROOM WE WOULD ASSIST HER TO DO SO. PT REFUSING TO USE BEDPAN. TECH ATTEMPTED TO ASSIST PT TO WHEELCHAIR TO TAKE TO RESTROOM. PT UNABLE TO STAND WITHOUT 2 ASSIST. EXPLAINED TO PT THAT WE WOULD HAVE TO HAVE HER USE THE BEDSIDE COMMODE FOR SAFETY.
[2021-05-24 21:30] LABS: ABSOLUTE NEUTROPHILS 2.8 thou/uL (1.4-8.2); BASOPHILS 0.7 % (0.0-2.0); HEMATOCRIT 35.2 % (37.0-47.0); HEMOGLOBIN 11.4 gm/dL (12.0-15.0); LYMPHOCYTES 24.5 % (24.0-44.0); MCH 33.7 pg (26.0-34.0); MCHC 32.3 g/dL (28.0-37.0); MCV 104.2 fL (80.0-100.0); MONOCYTES 12.2 % (1.0-8.0); PLATELET COUNT 99 thou/uL (150-400); POLYS 60.6 % (36.0-66.0); RBC 3.38 mil/uL (4.20-5.00); RDW 16.2 % (10.5-14.5); WBC 4.7 thou/uL (4.0-11.0)
[2021-05-24 21:37] LABS: ANION GAP 10 mmol/L (7-16); BUN 25 mg/dL (7-18); CALCIUM 9.1 mg/dL (8.5-10.1); CHLORIDE 107 mmol/L (98-107); CO2 25 mmol/L (21-32); CREATININE 1.5 mg/dL (0.6-1.0); GLUCOSE 98 mg/dL (74-106); POTASSIUM 5.2 mmol/L (3.5-5.1); SODIUM 142 mmol/L (136-145)
[2021-05-24 21:47] LABS: ALBUMIN 3.4 g/dL (3.4-5.0); SGOT 28 U/L (15-37); SGPT 16 U/L (14-59); TOTAL BILIRUBIN 0.6 mg/dL (0.2-1.0); TOTAL PROTEIN 7.1 g/dL (6.4-8.2); TROPONIN-I <0.06 ng/mL (<0.06)
[2021-05-25 00:30] LABS: URINE BILIRUBIN NEGATIVE (Negative); URINE BLOOD NEGATIVE (Negative); URINE CLARITY CLEAR; URINE COLOR YELLOW; URINE GLUCOSE-RANDOM* NEGATIVE (Negative); URINE KETONES NEGATIVE (Negative); URINE NITRITE-REFLEX NEGATIVE (Negative); URINE PROTEIN (DIPSTICK) NEGATIVE (Negative); URINE UROBILINOGEN 0.2 E.U./dl (0.2-1.0)
[2021-05-25 00:34] LABS: URINE LEUKOCYTES-REFLEX 1+ (Negative)
[2021-05-25 00:47] LABS: SQUAMOUS 0-3 Few /LPF (0-3)
[2021-05-25 00:48] LABS: BACTERIA-REFLEX 1-9 Few /HPF (None Seen); CELLULAR CASTS 0-3 Few /LPF (None Seen); CRYSTALS None Seen /LPF (None Seen); HYALINE CASTS 0-3 Few /LPF (None Seen); MUCUS 0-3 Light strn/LPF (None Seen); URINE RBC 1-2 Rare /HPF (NONE SEEN); URINE WBC-REFLEX 6-15 Few /HPF (0-5)
--- NOTE | 2021-05-25 01:29 | NUR ---
PATIENT UPSET BECAUSE SHE STAYING IN THE HOSPITAL. PT SAID WANTS TO GO HOME BECAUSE SHE DOESN'T WANT TO MISS HR GRANDAUGT'S BIRTHDAY. PATIENT AWARE OF COMPLACATIONS IF SHE LEAVES AMA. NOTIFIED TO NATALIA ROBBINS AND SHE SAID WILL COME BACK TO TALK WITH PATIENT. PATIENT GETTING AGITATED AND SHE CALLING HER DAUGTHER. SHE WILL BE LEAVING AMA.
--- NOTE | 2021-05-25 09:28 | NUR ---
80-year-old female who presents to the emergency department via EMS ground on 06-13-21 at 2307 with complaints of lower rib pain bilaterally and pain to her coccyx. She reports she has had increased erythema and edema of her bilateral lower extremities. She denies any recent treatment for her recurrent cellulitis of her bilateral lower extremities. Patient does have a past medical history of Lower extremity DVT and recurrent lower extremity cellulitis. The patient reports she lives at home and uses a walker for ambulation. Her code status is listed as Full Code. ED nursing assessment shows vaccination and Negative ID Now testing. The patient ahs been admitted for Bilateral lower extremity cellulitis, Coccyx wound, Coronary artery disease/ICM, A-fin, HTN/HLD, CKD and hx of LLE DVT. The patient's PCP is Dr. Maxx Healy. Patient last a patient in January and discharged to [facility] on 02-04-21. In the past the patient has been post-acute discharge to [facility] and [facility] in the past. NOTE: SW notes of 02-04-21 notes a completed DA124 C was completed. In the ED it was noted by nursing that patient was unable to stand without a 2-person assist. PT/OT orders not in and notified attending of this. ED nursing assessment shows that patient is A&O x4. In previous CM assessment patient listed Shannan Remy as a friend and contact at [phone] but then stated "she isn't a good contact" and instead stated a Talia Patel as a good contact but did have a number. CM on last admission worked with patient on discharge planning. As the patient's plan of care from the MD's gets closer to discharge; CM will follow for discharge planning needs.
[2021-05-25 15:05] VITALS: BP 128/55
--- NOTE | 2021-05-25 16:20 | NUR ---
PT ARRIVED 462 AT 1550, A&O*4 WITH FORGETFULLNESS, ROOM AIR, NO PAIN. FALL RISK EDUCATED AND PUT BED ALALRM ON. IV FLUID IS GOING THROUGHT IV ON RIGHT HAND. NO FAMILY OR FRIEND WANT TO BE CONTACTED BY THIS MOMENT. TELE IS APPLIED ON. SHOWING NSR ON TELE. WILL KEEP MONITOR PT'S SAFETY UNTIL SHIFT CHANGE.
[2021-05-25 20:14] VITALS: BP 176/78
--- NOTE | 2021-05-26 01:57 | NUR ---
ASSUMED PT CARE AT 1920. PT IS ALERT AND ORIENTED WITH CONFUSION. PT CAN BE IMPULSIVE AND IRRITABLE. PT REFUSED IMAGING FOR BLE AND WOUND DRSG. PT WAS COMPLIANT WITH TURNS BUT REFUSED TO BE TURNED AFFTER COUPLE OF TIMES. PT IS UPX1 TO THE BSC.PT HAS DRS TO BLE WHICH D/C/I WITH NO DRAINAGE. NO VISIBLE SIGN OF DISTRESS WAS NOTED. BED ON LOWEST LOCKED POSITION WITH BED ALARM ON AND CALL LIGHT WITHIN REACH. WILL CONTINUE TO MONITOR.
[2021-05-26 08:01] VITALS: BP 141/66
--- NOTE | 2021-05-26 09:32 | HC ---
[facility] [place] [address] CONSULTATION Name: PASCUAL HAAS Room #: 462-P ADM IN M.R.#: [id number] Admission: 05/25/21 Attend Phys: Imani Pressley Discharge: Date of : 42 Report #: [id number] THIS REPORT FOR: cc: [facility] - Clinic physician unknown [facility] - Clinic physician unknown Rd Chnichilla MD ~ DATE OF SERVICE: 05/25/2021 CHIEF COMPLAINT: Lower extremity and gluteal ulceration. HISTORY OF PRESENT ILLNESS: This is a 80-year-old female patient whom I have seen in the past. She has a history of a stage III gluteal pressure ulceration and venous dermatitis to her lower extremities. She is being admitted to the hospital. I have seen her in the Emergency Department today. She is complaining mainly of lower rib pain and coccygeal pain as well as increasing edema to the lower extremities and generalized weakness. PAST MEDICAL HISTORY: Positive history of lower extremity DVT, history of recurrent lower extremity cellulitis, coronary artery disease, idiopathic thrombocytopenia, ischemic cardiomyopathy, atrial fibrillation, peripheral arterial disease and chronic kidney disease. SOCIAL HISTORY: The patient lives at home, uses a walker for ambulation. She was recently in a longterm facility. ALLERGIES: No known drug allergies. MEDICATIONS: Include mirtazapine, MiraLax, Zofran, Desyrel, Lipitor, Voltaren gel, ammonium lactate, torsemide, cyanocobalamin, minocycline, Isordil and tramadol. FAMILY HISTORY: Noncontributory. REVIEW OF SYSTEMS: CONSTITUTIONAL: The patient denies fever, chills or weight loss. NEUROLOGICAL: The patient denies focal weakness, numbness or tingling, but does complain of generalized weakness. EYES: The patient denies visual changes, redness or drainage. ENT: The patient denies earache, nasal drainage or sore throat. CARDIOVASCULAR: The patient denies chest pain, palpitations or diaphoresis. PULMONARY: The patient denies cough or shortness of breath. GASTROINTESTINAL: The patient denies nausea, vomiting, diarrhea or abdominal pain. ORTHOPEDIC: The patient complains of swelling and some discomfort in lower extremities as well as gluteal ulcerations. [facility] [address] [place] [address] CONSULTATION Name: PASCUAL HAAS Room #: 462-P ADM IN M.R.#: [id number] Admission: 05/25/21 Attend Phys: Imani Pressley Discharge: Date of : 42 Report #: [id number] Other systems in a 14-point review of systems are negative. PHYSICAL EXAMINATION: VITAL SIGNS: At this time include temperature 36.8, pulse 63, respiratory rate 15, blood pressure 120/55. GENERAL: This is a chronically ill-appearing female patient appears in no distress. HEENT: Head normocephalic. Nose and throat clear. NECK: Supple. LUNGS: Diminished. HEART: Irregular. ABDOMEN: Soft. EXTREMITIES: Lower extremities demonstrate venous dermatitis, mild erythema, but no obvious cellulitis at this time. She has a stage III pressure ulceration to the right gluteal region. NEUROLOGIC: The patient is alert, oriented and appropriate. Cranial nerves II-XII appear to be grossly intact. LABORATORY STUDIES: Include white blood cell count 4.7, hemoglobin 11.4. Sodium 142, potassium 5.2, chloride 107, BUN 25, creatinine 1.5, albumin is 3.4. CLINICAL IMPRESSION: 1. Stage III pressure ulcer of the right gluteal region. 2. Venous stasis dermatitis with scattered superficial ulcerations to both lower extremities. 3. Peripheral arterial disease. 4. Coronary artery disease. 5. Atrial fibrillation. 6. Hypertension. 7. Hyperlipidemia. 8. Chronic kidney disease. 9. Mild protein calorie malnutrition, albumin 3.4. RECOMMENDATIONS: At this point in time, we will recommend ____ cream mixed with barrier cream at the bedside apply to the gluteal ulceration. She will need serial turning, repositioning and ____ on her bed. Recommend AmLactin to the dry skin of the lower extremities. Xeroform gauze, ABD, Kerlix, tape. Elevation of the legs whenever possible. Continue medical management. Aggressive ongoing nutritional support. I appreciate being asked to see the patient in consultation. <ELECTRONICALLY SIGNED> By: Rd Chinchilla MD 05/26/[id number] Ch[address]illa MD /nt
[2021-05-26 11:47] LABS: CALCIUM 8.4 mg/dL (8.5-10.1); CREATININE 1.4 mg/dL (0.6-1.0); POTASSIUM 4.8 mmol/L (3.5-5.1)
--- NOTE | 2021-05-26 12:37 | HC ---
[facility] [place] [address] CONSULTATION Name: PASCUAL HAAS Room #: 462-P [facility] IN M.R.#: [id number] Admission: 05/25/21 Attend Phys: Imani Pressley Discharge: Date of : 42 Report #: [id number] THIS REPORT FOR: cc: [facility] - Clinic physician unknown [facility] - Clinic physician unknown Joao Foss MD ~ DATE OF SERVICE: 05/25/2021 INFECTIOUS DISEASE CONSULTATION ATTENDING PHYSICIAN: Dr. Pressley. REASON FOR EVALUATION: Bilateral lower extremity inflammatory eruptions. Also, chronic sacral decubitus ulcers, felt to be inflamed as well suggestive of skin and soft tissue infection and cellulitis. HISTORY OF PRESENT ILLNESS: Chart reviewed. The patient examined. This is a 80-year-old woman known to myself, who was hospitalized in 01/2021. There is known vasculopathy, chronic anemia, and recurrent lower extremity inflammatory eruptions felt to have a component of cellulitis and probable venous stasis insufficiency dermatitis as well. She notes increasing pain associated with multiple sites including the legs and the sacral site. She apparently has progressive weakness as well. Denied significant fevers. Did not experience chills. States her appetite was adequate. No pulmonary related complaints. Initial evaluation noted normal chest x-ray, macrocytic anemia, renal insufficiency. Lactic acid was normal range at 1.4. CT abdomen and pelvis did show inflammatory changes noted about the sacral site. No bony changes. Urinalysis had a moderate degree of pyuria, although minimal bacteriuria. Coronavirus testing was negative. Blood cultures collected earlier sterile thus far. Due to the recurrent nature of her inflammatory eruption, it was felt to be skin and soft tissue infection with cellulitis. She was empirically placed on therapy with combination of Zosyn and vancomycin. She notes she does feel somewhat better, I suspect secondary to some hydration. ALLERGIES: None known. MEDICATIONS: Include p.r.n. analgesics, Zosyn, vancomycin. PAST MEDICAL HISTORY: As described above, has known peripheral vascular disease as well as coronary artery disease, chronic venous stasis insufficiency, osteoarthritis, renal insufficiency, chronic anemia, atrial fibrillation, cardiomyopathy, recurrent ulcers of lower extremities and sacral decubitus ulcer. SOCIAL HISTORY: Nonsmoker, no ethanol, no illicit drug use. [address] [address] CONSULTATION Name: PASCUAL HAAS Room #: 462-P [facility] IN M.R.#: [id number] Admission: 05/25/21 Attend Phys: Imani Pressley Discharge: Date of : 42 Report #: [id number] FAMILY HISTORY: Noncontributory. REVIEW OF SYSTEMS: Otherwise, limited response, exception of the above. PHYSICAL EXAMINATION: GENERAL: She appears chronically ill and undernourished, has a depressed affect, mild to moderate distress. Any manipulation of her legs causes significant pain. She is mildly encephalopathic. VITAL SIGNS: Temperature 98.2, pulse 63, respirations 15, blood pressure 128/55. SKIN: Warm, dry, no rashes. HEENT: Normocephalic. Extraocular muscles intact. NECK: Supple. LUNGS: Diminished breath sounds. HEART: Irregular. There is a systolic murmur. ABDOMEN: Mildly distended, soft, no apparent tenderness, no peritoneal signs. EXTREMITIES: Bilateral lower extremities have dressings to below the knees. There is a moderate degree of inflammation noted. GENITOURINARY AND RECTAL: Deferred. LABORATORY DATA: Blood cultures sterile thus far. Electrolytes: Sodium 142, potassium 5.2, chloride 107, bicarbonate 25, anion gap of 10, BUN and creatinine 25 and 1.5, glucose of 98. LFTs unremarkable. Albumin 3.4, total protein 7.1. CBC: White count of 4.7, H and H 11.4 and 35.2, platelets of 99. ASSESSMENT AND PLAN: Bilateral lower extremity inflammatory eruption, likely multifactorial. Given the worsening signs and symptoms, suspect there is underlying skin and soft tissue infection with cellulitis. Continue empiric antimicrobial therapy at this point. Presume a gram-positive etiology. Also noted some pyuria. Cannot exclude urinary tract infection as well. She remains quite tenuous. We will continue to monitor expectantly. Wound care as prescribed. Symptomatic pain treatment . <ELECTRONICALLY SIGNED> By: Joao Foss MD 05/26/21 1237 [id number] Joao Foss MD /nt
--- NOTE | 2021-05-26 13:21 | NUR ---
ASSUMED CARE OF PT AT 0700 THIS MORNING. PT IS A/OX1-2, CONFUSED AND FORGETFULL. PT IS AMBULATORY WITH [facility] AND [facility]. PT PULLED OUT IV AND HAVING HARD TIME GETTING PT TO COOPERATE TO START A NEW ONE. PT HAS CELLULITIS IN LOWER EXTREMITIES. WOUND IN SACRAL AREA TX WITH Z-SEKOU AMND CLEANSING SPRAY. ASSESSMENTS NOTED IN CHART AND OTHERWISE UNREMARKABLE. CALL LIGHT AND OTHER NEEDS ARE WITHIN REACH. FALL PRECAUTIONS ARE IN PLACE. MEDS AND TX GIVEN NEEDED AND SCHEDULED. WILL MONITOR AND NOTE ANY CHANGES.
--- NOTE | 2021-05-26 13:25 | NUR ---
80-year-old female who presents to the emergency department via EMS ground on 06-13-21 at 2307 with complaints of lower rib pain bilaterally and pain to her coccyx. She reports she has had increased erythema and edema of her bilatera lower extremities. She denies any recent treatment for her recurrent cellulitis of her bilateral lower extremities. Patient does have a past medical history of Lower extremity DVT and recurrent lower extremity cellulitis. The patient reports she lives at home and uses a walker for ambulation. Her code status is listed as Full Code. ED nursing assessment shows vaccination and Negative ID Now testing. The patient ahs been admitted for Bilateral lower extremity cellulitis, Coccyx wound, Coronary artery disease/ICM, A-fin, HTN/HLD, CKD and hx of LLE DVT. The patient's PCP is Dr. Maxx Healy. Patient last a patient in January and discharged to [facility] on 02-04-21. In the past the patient has been post-acute discharge to [facility] and has [facility] in the past. NOTE: notes of 02-04-21 notes a completed DA124 C was completed. In the ED it was noted by nursing that patient was unable to stand without a 2-person assist. PT/OT orders not in. Pt had been to [facility] in december of this year and had been to [facility], and [facility]. Pt doesn't have any contacts. Cm following regarding dc planning.
[2021-05-26 15:25] VITALS: BP 156/72
[2021-05-26 20:07] VITALS: BP 169/84
--- NOTE | 2021-05-27 03:26 | NUR ---
PT CARE ASSUMED WITH PT IN BED WATCHING TV.PT IS A/O X2.PT IS UP TO BSC WITH X1 ASSIST .PT HAS DRESSING ON BLE AND SACRAL AREA.PT REFUSED CHANGE OF DRESSING OF WOUNDS.PT IS ON ROOM AIR.PT IV ON RT FA WITH NS AT 126CC/HR.PT APPEARED TO BE IN NO ACUTE DISTRESS.WILL CONTINUE TO MONITOR
[2021-05-27 08:54] VITALS: BP 158/75
--- NOTE | 2021-05-27 13:55 | NUR ---
FAXED SNF REFERRAL AND NEGATIVE COVID RESULT (05/25/21) TO [facility]. NOTED DISCHARGE PREFERRED TODAY, 05/27/21. WILL CONFIRM WITH KRISTIE/ADMISSIONS THAT SHE RECEIVED AND BED AVAILABILITY. [facility] P [phone]; FAX [phone];L ADMISSIONS # [phone]
--- NOTE | 2021-05-27 14:58 | NUR ---
CARE TEAM CONSULTED DR. WHITTAKER. PT IS TO HAVE AN ARTERIOGRAM ON SUNDAY. 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 THEY INDICATED THEY ARE ABLE TO ACCEPT PT BACK UPON DC. PT HAD BEEN ON SERVICE FOR PT, OT, NURSING, SW. THEIR FAX IS . CM FOLLOWING REGARDING DC PLANNING.
[2021-05-27 19:47] VITALS: BP 156/82
--- NOTE | 2021-05-27 20:03 | NUR ---
ASSUMED CARE OF PATIENT AT SHIFT CHANGE, ASSESSMENT CHARTED. MEDS ADMINISTERED PER EMAR. VSS. PATIENT IS A&OX3 AND ABLE TO MAKE NEEDS KNOWN. NO SIGNS OF IMPULSIVITY THIS SHIFT. WORKED WITH PT/OT AND DID WELL. P[ATIENT SEEN BY DR. DUNN TEAM AND WILL HAVE AN ANGIOGRAM WEDNESDAY 05/30. CONSENT PRINTED AND PATIENT AWARE. NO FURTHER ISSUES NOTED THIS SHIFT; ENDORSED TO ONCOMING NURSE
--- NOTE | 2021-05-27 20:07 | NUR ---
I AGREE W/ ASSESSMENT PER INDIRA FRAZIER.
[2021-05-28 03:01] VITALS: BP 162/74
--- NOTE | 2021-05-28 03:15 | NUR ---
PT CARE ASSUMED WITH PT IN CHAIR WATCHING TV.PT IS A/O X3.PT IS UP WITH X1 ASSIST TO THE BSC.PT BECAME AGITATED C/O RING GETTING MISSING AND SEARCHING IN THE TRASH.PT TRYING TO PULL ON STAFF AND REFUSE TAKING ALL BEDTIME MEDS PO .HALDOL IV PRN GIVEN FOR AGITATION.PT REMAIN CALM AND CHOOSE TO BE IN THE CHAIR TILL THIS TIME.WILL CONTINUE TO MONITOR PER POC
[2021-05-28 08:52] VITALS: BP 173/81
--- NOTE | 2021-05-28 17:26 | NUR ---
PATIENT A&OX3-4 THIS SHIFT AND MAKES NEEDS KNOWN. REMEMBERING TO CALL FOR HELP WHEN NEEDING TO USE BATHROOM. BACKSIDE VERY PAINFUL; PATIENT IN CHAIR THROUGHOUT SHIFT, SITTING ON PILLOW FOR ADDED SUPPORT. THIS NURSE STARTED TO UNDO LEG DRESSINGS ON PATIENT HOWEVER PATIENT SCREAMED OUT IN PAIN AND TOLD NURSE TO STOP; PATIENT WAS PREMEDICATED. SACRAL FOAM CHANGED AND REMAINS C/D/I. IV FLUIDS CONTINUE INFUSING W NO ISSUES. ANGIOGRAM STILL SCHEDULED FOR SUNDAY; CONSENT ON CHART. NO FURTHER OR NEW ISSUES NOTED. WILL CONTINUE TO MONITOR AND FOLLOW PLAN OF CARE
[2021-05-28 21:08] VITALS: BP 156/74
--- NOTE | 2021-05-29 03:40 | NUR ---
ASSUMED PT CARE WITH PT SITTING IN THE RECLINER. PT IS ALERT AND ORIENTED BUT PT CAN BE CONFUSED SOMETIMES. PT WAS NOT IMPULSIVE ON THIS SHIFT AND FOLLLOWED COMMANDS EASILY. PT WAS CALM, COOPERATIVE AND COMPLIANT WITH CALL LIGHT. PT IS UPX1 TO THE BR. PT HAS MARLA WRAP ON BLE WHICH IS D/C/I WITH NO DRAINAGE. WOUND DRSG TO THE SACRUM WAS CHANGED PER ORDER. PT DID NOT EXPRESS ANY CONCERNS AND NO VISIBLE SIGN OF DISTRESS WAS NOTED. FALLL PRECAUTIONS IN PLACE WITH CALL LIGHT WITHIN REACH. WILL CONTINUE TO MONITOR.
[2021-05-29 06:22] LABS: CALCIUM 7.7 mg/dL (8.5-10.1); CREATININE 1.3 mg/dL (0.6-1.0); POTASSIUM 4.6 mmol/L (3.5-5.1)
[2021-05-29 08:05] VITALS: BP 172/72
[2021-05-29 15:52] VITALS: BP 141/72
--- NOTE | 2021-05-29 18:21 | NUR ---
PATIENT ALERT AND ORINTED X1-2, ON ROOM AIR, UP ASSIST X1 WITH WALKER, PAIN MEDICATION GIVEN PER MAR, VITAL SIGNS STABLE, AND AFBRIELE. CHAIR AND BED ALARM AUTO DESIGN DETAILER LIGHT WITH IN REACH, WILL CONTINUE TO MONITOR.
[2021-05-29 19:51] VITALS: BP 165/64
--- NOTE | 2021-05-30 02:37 | NUR ---
ASSUMED PT CARE AT 1935. PT IS ALERT AND ORIENTED TO SELF. PT REFUSED TO DRSG CHANGE TO BLE BUT AGREED TO DRSG CHANGE TO THE SACRUM. PT IS UPX1 WITH GB AND WALKER TO THE BR. PT CAN SOMETIMES BE NON-COMPALIANT WITH CALL LIGHT AND IMPULSIVE. PT PREEFERS TO SEELP IN THE RECLINER WITH CHAIR ALARM ON. FALL BED PREACUTIONS IN PLACE WITH CALL LIGHT WITHIN REACH. WILL CONTINUE TO MONITOR.
[2021-05-30 04:22] VITALS: BP 139/61
[2021-05-30 05:27] LABS: HEMATOCRIT 29.1 % (37.0-47.0); HEMOGLOBIN 9.3 gm/dL (12.0-15.0); MCHC 31.9 g/dL (28.0-37.0); MCV 106.7 fL (80.0-100.0); RBC 2.73 mil/uL (4.20-5.00); RDW 16.1 % (10.5-14.5); WBC 4.1 thou/uL (4.0-11.0)
[2021-05-30 05:54] LABS: CREATININE 1.3 mg/dL (0.6-1.0); POTASSIUM 4.1 mmol/L (3.5-5.1)
--- NOTE | 2021-05-30 16:53 | NUR ---
Pt went for an aortogram with runoff today. Care team indicated that pt is to transfer to CCU post procedure. Care team have thus far indicated that they anticpate pt returning home with resumption of hh services once medically stable. Cm had spoken with [facility] and they are able to accept pt back upon dc. Cm following regarding dc planning.
--- NOTE | 2021-05-30 18:26 | NUR ---
TRANSFER TO CCU 200. REPORT TO GENE. VSS. SAT 98% ON RA, IV PATENT AND FLUSHED WITH NS. ONE LITER INFUSED
--- NOTE | 2021-05-30 18:38 | NUR ---
ASSUMED CARE OF PT AT 1815 FROM [facility] DISPENSING. LEFT GROIN SITE SOFT C/D/I. DENIES PAIN/SOA AT THIS TIME. VSS, IVF INFUSING PER ORDER WILL CONTINUE TO MONITOR.
[2021-05-30 19:30] VITALS: BP 145/72
[2021-05-31 04:42] VITALS: BP 102/60
[2021-05-31 06:13] LABS: ALBUMIN 2.1 g/dL (3.4-5.0); CALCIUM 7.6 mg/dL (8.5-10.1); CREATININE 1.2 mg/dL (0.6-1.0); PHOSPHORUS 3.1 mg/dL (2.5-4.9); POTASSIUM 4.1 mmol/L (3.5-5.1)
[2021-05-31 07:31] VITALS: BP 127/62
[2021-05-31] MEDS ORDERED: MINOCYCLINE 5050 M1 PO (08:36)
[2021-05-31] MEDS ORDERED: BAYER CHEWABLE81 MG PO (08:36)
[2021-05-31 09:08] VITALS: BP 127/62
--- NOTE | 2021-05-31 15:54 | NUR ---
patient to dc home today with care. Faxed orders to [facility] care. Verified they rec. Patient with need for transport home. Arranged van for [phone]. Patient initally believed her walker lost here. Noted it was not noted as her belongings here at hospital. Issued patient a new walker with [employer]. No further needs.
[2021-05-31 16:16] VITALS: BP 127/62
--- NOTE | 2021-05-31 17:34 | NUR ---
ASSESSMENT CHARTED - MEDS PER ANNA CEVALLOS DIET AND FLUIDS. UP TO THE CHAIR FOR MOST OF THE DAY - DRESSING COMPLETED TO [employer] EXTEMITY ORDERED. SEEN BY PHYS THERAPY THIS AM. NO CO'S OF PAIN OR NAUSEA. PT HOME THIS EVENING AFTER DINNER - INSTRUCTIONS RE HOME MEDS/ CARE AND FOLLOW OU GIVEN TO PATIENT - PT TO HAVE HOME HEALTH SEE HER - WILL NEED REINFORCEMENT IN RE GARDS TO MEDICATIONS. PT LEFT UNIT VIA WHEELCHAIR - HOME VIA WCV. NO CO'S AT TIME OF D/C.
== END 2021-05-31 17:37 | disposition home health service (06) | DRG 270 ==
LOC: ER 20:21 → 4W 05-25 00:04 → EROBS 05-25 00:04 → 2N 05-25 00:04 → 4W 05-25 15:21 → 2N 05-30 17:32
PROVIDERS: Emergency Medicine; Nurse Practitioner; ADMIT Hospitalist; ATTEND Hospitalist
PROC: B4181ZZ Fluoroscopy of Bilateral Renal Arteries using Low Osmolar Contrast (ICD-10-PCS; principal; 2021-05-30)
PROC: B41D1ZZ Fluoroscopy of Aorta and Bilateral Lower Extremity Arteries using Low Osmolar Contrast (ICD-10-PCS; principal; 2021-05-30)
PROC: 04CK3ZZ Extirpation of Matter from Right Femoral Artery, Percutaneous Approach (ICD-10-PCS; principal; 2021-05-30)
PROC: 047K3DZ Dilation of Right Femoral Artery with Intraluminal Device, Percutaneous Approach (ICD-10-PCS; principal; 2021-05-30)
DX: I73.9 Peripheral vascular disease, unspecified (principal); L89.313 Pressure ulcer of right buttock, stage 3; G93.41 Metabolic encephalopathy; L03.116 Cellulitis of left lower limb; L03.115 Cellulitis of right lower limb; E44.0 Moderate protein-calorie malnutrition; L97.929 Non-pressure chronic ulcer of unspecified part of left lower leg with unspecified severity; L97.919 Non-pressure chronic ulcer of unspecified part of right lower leg with unspecified severity; N18.4 Chronic kidney disease, stage 4 (severe); D69.3 Immune thrombocytopenic purpura; I25.10 Atherosclerotic heart disease of native coronary artery without angina pectoris; E78.5 Hyperlipidemia, unspecified; F32.9 Major depressive disorder, single episode, unspecified; M19.90 Unspecified osteoarthritis, unspecified site; I87.8 Other specified disorders of veins; I87.2 Venous insufficiency (chronic) (peripheral); L89.159 Pressure ulcer of sacral region, unspecified stage; I48.91 Unspecified atrial fibrillation; G47.00 Insomnia, unspecified; I25.5 Ischemic cardiomyopathy; I12.9 Hypertensive chronic kidney disease with stage 1 through stage 4 chronic kidney disease, or unspecified chronic kidney disease; R63.4 Abnormal weight loss; D50.9 Iron deficiency anemia, unspecified; Z20.822 Contact with and (suspected) exposure to COVID-19; Z96.641 Presence of right artificial hip joint; Z68.20 Body mass index [BMI] 20.0-20.9, adult; Z90.49 Acquired absence of other specified parts of digestive tract; Z86.718 Personal history of other venous thrombosis and embolism; Z90.710 Acquired absence of both cervix and uterus; Z95.5 Presence of coronary angioplasty implant and graft; Z95.1 Presence of aortocoronary bypass graft; Z79.899 Other long term (current) drug therapy
CPT/HCPCS: 10045; 10081

== ENCOUNTER 2021-06-15 00:23 | Inpatient (IN) | payer OTHER ==
[~2021-06-15] VITALS: Ht 177.8 cm; Wt 54.0 kg
--- NOTE | ~2021-06-15 | EMS ---
[address] [address] EMS Patient Care Report Name: PASCUAL HAAS Room #: PRE AIDEN Moran#: [id number] Admission: Attend Phys: Discharge: Date of : 42 Report #: [id number] THIS REPORT FOR: //name// Report Transmitted: 06/15/2021 00:09 EMS Care Summary [facility] MED-ACT Incident [id number] @ 06/14/2021 23:02 Incident Location [address] [place] [address] Patient PASCUAL HAAS Female, 81 Years 1940 Patient Address [address] [place] [address] Patient History Congestive Heart Failure (CHF),Hypertension (HTN),Stroke/CVA,TIA,Coronary Artery Bypass Graft (CABG),Skin Cancer,Cellulitis, Patient Allergies No known allergies, Patient Medications Tramadol, Acetaminophen, Trazodone, Amiodarone, Sertraline, Ondansetron, Atorvastatin, Chief Complaint L hip pain Disposition Transported No Lights/[place] Reason [place] Transported To [facility] Narrative [address] [address] EMS Patient Care Report Name: PASCUAL HAAS Room #: PRE [facility].Sarah.#: [id number] Admission: Attend Phys: Discharge: Date of : 42 Report #: [id number] 81 YOF lives alone in an apartment, fell sometime 06/14 and was unable to get herself up. Upon arrival, pt found lying on floor alert but confused to event and possibly hallucinating, saying her sister was laying on top of her legs. Pt presented w/ skin tear to L elbow and pain to L hip, which is the side she had been laying on. There was no obvious deformity, shortening, or rotation of the leg. Pt was unable to rate pain. Pt was assisted to sitting and then standing position. Pt was able to ambulate using walker without much pain, but sitting down or standing up caused pain. Pt assisted to recliner. Pt reported she did not know when she fell, how long she had been on the floor, why she fell, or whether she hit her head. Pt reported she had woken up on the floor and called out for help. Pt reported her home health provider had been at the apartment 06/14 in the morning for an hour or two, so the fall could have occurred anytime since the morning. VS obtained. Pt did not want to go to hospital. Pt began experiencing increasing pain in hip. Pt attempted to take herself to the restroom, but was unable to sit down or stand back up without assistance. Pt assisted to stairchair and moved outside. Pt then transferred to [facility] and transported to [facility]. No changes in pt condition en route. Upon arrival, pt taken to room 8 and transferred via sheet drag. Report to attending RN. Initial Vitals @00:18P: 64,R: 12,BP: 118/65,GCS: 14,SpO2: 94,Revised Trauma: 12, @00:07P: 64,R: 12,BP: 107/58,GCS: 14,SpO2: 94,Revised Trauma: 12, @23:20P: 74,R: 12,BP: 127/63,Pain: 5/10,GCS: 14,Temp: 97.9F,Glucose: 86,SpO2: 94,Revised Trauma: 12, Impression Injury of Hip Procedures @23:13ALS AssessmentResponse: UnchangedSucceeded@00:05Surgical Mask on PatientResponse: Unchanged Timeline 23:00,Call Received 23:00,Psap Call 23:02,Dispatched 23:03,En Route 23:07,On Scene 23:12,At Patient 23:13,ALS Assessment,Response: UnchangedSucceeded, 23:20,BP: 127/63 M,PULSE: 74,RR: 12 R,SPO2: 94 Ox,ETCO2: ,B,PAIN: 5,GCS: 14, 00:05,Surgical Mask on Patient,Response: Unchanged [address] [address] EMS Patient Care Report Name: PASCUAL HAAS Room #: [facility] M.R.#: [id number] Admission: Attend Phys: Discharge: Date of : 42 Report #: [id number] 00:07,BP: 107/58 M,PULSE: 64,RR: 12 R,SPO2: 94 Ox,ETCO2: ,BG: ,PAIN: ,GCS: 14, 00:08,Depart Scene 00:18,BP: 118/65 M,PULSE: 64,RR: 12 R,SPO2: 94 Ox,ETCO2: ,BG: ,PAIN: ,GCS: 14, 00:27,At Destination 00:34,Call Closed Disclaimer v1.1 Copyright 2020 [employer] This EMS Care Summary contains data elements from the applicable legal record (which may be displayed differently). It is designed to provide pertinent information for the following purposes: continuity of care, clinical quality, and state data reporting. The complete legal record is available to ED staff and administrators of the receiving hospital in [employer] Patient Tracker. All data is provided "as is."
--- NOTE | ~2021-06-15 | HC ---
[facility] [place] [address] CONSULTATION Name: PASCUAL HAAS Room #: 445-P [facility] IN M.R.#: [id number] Admission: 06/15/21 Attend Phys: Jericho Anderson, Discharge: 06/21/21 Date of : 42 Report #: [id number] THIS REPORT FOR: cc: [facility] - Clinic physician unknown [facility] - Clinic physician unknown Rd Chinchilla MD ~ DATE OF SERVICE: 06/15/2021 CHIEF COMPLAINT: Gluteal sacral pressure ulceration and skin tears. HISTORY OF PRESENT ILLNESS: This is an 81-year-old female patient who lives at home and fell from standing height. She was not sure what happened and cannot recall the events. She has an ulcer to her sacrum for which I have been asked to see her. She did sustain a skin tear to her right upper extremity. PAST MEDICAL HISTORY: Positive history of depression, right hip replacement, previous cholecystectomy, hysterectomy, tonsillectomy, hyperlipidemia, coronary artery disease status post CABG, chronic kidney disease, paroxysmal atrial fibrillation, ischemic cardiomyopathy and venous insufficiency. SOCIAL HISTORY: Negative for alcohol or tobacco use. She has been only living at home. MEDICATIONS: Include mirtazapine, polyethylene glycol, ondansetron, trazodone, atorvastatin, acetaminophen, diclofenac, ammonium lactate, torsemide, cyanocobalamin, aspirin, clopidogrel, minocycline. ALLERGIES: No known drug allergies. REVIEW OF SYSTEMS: CONSTITUTIONAL: The patient denies, fever, chills, weight loss. NEUROLOGICAL: The patient denies focal weakness, numbness, tingling. EYES: The patient denies visual changes, redness, drainage. ENT: The patient denies earache, nasal drainage, or sore throat. CARDIOVASCULAR: The patient denies chest pain, palpitations or diaphoresis. PULMONARY: The patient denies cough or shortness of breath. GASTROINTESTINAL: The patient denies nausea, vomiting, diarrhea or abdominal pain. ORTHOPEDIC: The patient has some pain in her upper extremity. Others systems in a 14-point systems are negative. PHYSICAL EXAMINATION: VITAL SIGNS: At this time include temperature 36.3, pulse 66, respiratory rate 15, blood pressure 137/66. GENERAL: This is a chronically ill-appearing female [place] [address] CONSULTATION Name: PASCUAL HAAS Room #: 445-P [facility] IN M.R.#: [id number] Admission: 06/15/21 Attend Phys: Jericho Anderson, Discharge: 06/21/21 Date of : 42 Report #: [id number] in minimal distress. HEAD: Normocephalic. Nose and throat are clear. NECK: Supple. LUNGS: Clear. HEART: Irregular without murmur. ABDOMEN: Soft. Bowel sounds present. EXTREMITIES: Lower extremities without clubbing or cyanosis, but there is some venous dermatitis. Sacral region demonstrates what appears to be a stage 3 sacral pressure ulceration. Extremities demonstrate skin tear to the left upper arm. This is reapproximated and repaired with [place]olo. LABORATORY STUDIES: Include sodium 138, potassium 4.6, chloride 102, CO2 of 24, BUN 37, creatinine 1.7. White blood cell count 9.7 with a hemoglobin of 8.7. CLINICAL IMPRESSION: 1. Moisture-associated skin damage to the gluteal sacral region, possible early stage 3. 2. Skin tear, left upper extremity, reapproximated and repaired with [place]olo. 3. Pelvic fracture. 4. Acute kidney injury on chronic kidney disease. 5. History of peripheral vascular disease. 6. Hyperlipidemia. 7. Paroxysmal atrial fibrillation. RECOMMENDATIONS: At this point in time, we recommend low air loss surface and q. 2 hour turning and positioning and moisture barrier cream to the sacral-gluteal region b.i.d. and p.r.n. The skin tear to the left upper arm can be left open to air. Continue with other medical management, nutritional support. I appreciate being asked to see her in consultation. By: [address] Chinch[address] MD /nt
[2021-06-15 00:27] VITALS: BP 133/83
[2021-06-15 00:45] LABS: ABSOLUTE NEUTROPHILS 8.7 thou/uL (1.4-8.2); BASOPHILS 0.3 % (0.0-2.0); EOSINOPHILS 0.2 % (0.0-3.0); HEMATOCRIT 27.4 % (37.0-47.0); HEMOGLOBIN 8.7 gm/dL (12.0-15.0); LYMPHOCYTES 4.6 % (24.0-44.0); MCHC 31.8 g/dL (28.0-37.0); MCV 106.9 fL (80.0-100.0); MONOCYTES 5.2 % (1.0-8.0); PLATELET COUNT 131 thou/uL (150-400); POLYS 89.7 % (36.0-66.0); RBC 2.56 mil/uL (4.20-5.00); RDW 16.3 % (10.5-14.5); WBC 9.7 thou/uL (4.0-11.0)
[2021-06-15 00:56] LABS: CALCIUM 8.4 mg/dL (8.5-10.1); CREATININE 1.7 mg/dL (0.6-1.0); POTASSIUM 4.6 mmol/L (3.5-5.1)
[2021-06-15 01:02] LABS: TOTAL BILIRUBIN 0.8 mg/dL (0.2-1.0); TOTAL PROTEIN 6.3 g/dL (6.4-8.2)
[2021-06-15 01:11] LABS: URINE BILIRUBIN 1+ (Negative); URINE BLOOD NEGATIVE (Negative); URINE CLARITY CLEAR; URINE COLOR YELLOW; URINE GLUCOSE-RANDOM* NEGATIVE (Negative); URINE KETONES TRACE (Negative); URINE NITRITE-REFLEX NEGATIVE (Negative); URINE PROTEIN (DIPSTICK) NEGATIVE (Negative); URINE UROBILINOGEN 0.2 E.U./dl (0.2-1.0)
[2021-06-15 01:12] LABS: URINE LEUKOCYTES-REFLEX 1+ (Negative)
[2021-06-15 01:22] LABS: BACTERIA-REFLEX 1-9 Few /HPF (None Seen); CASTS None Seen /LPF (None Seen); CRYSTALS None Seen /LPF (None Seen); MUCUS 4-6 Moderate strn/LPF (None Seen); SQUAMOUS 4-10 Moderate /LPF (0-3); URINE RBC 1-2 Rare /HPF (NONE SEEN); URINE WBC-REFLEX 0-5 Rare /HPF (0-5)
[2021-06-15 04:06] VITALS: BP 140/65
[2021-06-15 04:15] VITALS: BP 140/65
[2021-06-15 04:31] VITALS: BP 143/78
--- NOTE | 2021-06-15 07:10 | NUR ---
PT ARRIVED FROM ER THIS AM @0430. FELL AT HOME WITH LEFT HIP FX. PER ER REPORT PT WAS MEDICATED WITH PAIN MEDS UPON ARRIVAL. ADMISSION DONE WITH NOTES FROM CHARTS DUE TO PT LEVEL OF CONSCIOUSNESS. WOUNDS AND BRUISES NOTED. PT NPO. IV INTACT AND FLUIDS STARTED. FALL PREC IN PLACE AND ROOM IN FRONT OF NURSES STATION. REPORT GIVEN TO DAY RN TO CONT CARE.
--- NOTE | 2021-06-15 07:28 | EKG ---
[place] [address] [facility] [place] [address] ELECTROCARDIOGRAM REPORT Name: PASCUAL HAAS Room #: 445-P ADM IN M.R.#: [id number] Admission: 06/15/21 Attend Phys: Jericho Anderson, Discharge: Date of : 42 Report #: [id number] [facility] ED Test Date: 2021-06-15 Test Time: 03:59:04 Pat Name: PASCUAL HAAS Department: Room: [facility] Gender: F Home Teaching Grades 9 Thru 12 Teacher: XAVI : 1940 Requested By: Eric Beckett Order Number: [id number] MD: Akbar Owen Measurements Intervals Basom Rate: 69 P: 98 WI: 210 QRS: 36 QRSD: 98 T: 126 QT: 420 QTc: 450 Interpretive Statements Sinus rhythm Borderline low voltage, extremity leads LVH with secondary repolarization abnormality Baseline wander in lead(s) V3 Compared to ECG 04/06/2021 13:03:45 Left ventricular hypertrophy now present Early repolarization now present Myocardial infarct finding no longer present Electronically Signed On 06-15-2021 7:27:57 CDT by Akbar Owen [email or web address] <ELECTRONICALLY SIGNED> By: Akbar Owen MD, FAC 06/15/21 0727 [id number] Akbar Owen MD, [facility] /EPI
[2021-06-15 07:34] VITALS: BP 137/66
--- NOTE | 2021-06-15 16:41 | NUR ---
ASSESSMENT: CM REVIEWED CHART. CM ATTEMPTED TO VISIT WITH PATIENT AND SHE WAS SLEEPING AND WOULD NOT AWAKE TO TALK TO CM. BEDSIDE RN REPORTS PT HAS BEEN SLEEPING ALL MORNING. CM RECEIVED A CALL FROM [facility] STATING PT WAS IN SERVICES WITH THEM. CM FAXED UPDATED CLINICAL ON PATIENT. CM SPOKE WITH LUCY PERALES [phone] WHO IS THE RN FROM [facility] WHO REPORTS CONCERNS OF PATIENT LIVING AT HOME. PT WAS REFERRED TO THEM FROM [facility] WHERE SHE WAS BACK IN [facility] STATING PT SHOULD LIKELY NOT BE AT HOME BY HERSELF. CM REACHED OUT TO [employer] TO SCREEN PATIENT TO SEE IF SHE QUALIFIES FOR MEDICAID. CM SPOKE WITH ORTHO PHYSICIAN WANTING TO KNOW ANY FAMILY CONTACTS. CM HAS ATTEMPTED TO CHECK WITH [facility] WHO REPORTS THEY DO NOT HAVE ANY EMERGENCY CONTACT INFORMATION. CM ALSO REACHED OUT TO PATIENTS PCP DR. CELIS WHO REPORTS THEY ALSO DO NOT HAVE ANY EMERGENCY CONTACTS LISTED. PER RN AT [facility] SHE HAS KNOWN PATIENT AND REPORTS PT HAS NO FAMILY. THERE WAS A PAST ADMISSION HERE AT [facility] WHERE THERE WAS A NUMBER FOR AN OLD NEIGHBOR [place] [phone] BUT THIS NUMBER DOES NOT CURRENTLY WORK AND PER RN AT [facility] QUESTIONS OF THAT NEIGHBORS MOTIVES. PT HAS NO FAMILY OR FRIENDS TO CONTACT AT THIS TIME. CM UPDATED ORTHO PHYSICIAN. CM WILL CONTINUE TO FOLLOW TO ASSIST NEEDED.
[2021-06-15 20:29] VITALS: BP 162/73
[2021-06-16 06:24] LABS: HEMATOCRIT 23.7 % (37.0-47.0); HEMOGLOBIN 7.8 gm/dL (12.0-15.0); MCH 35.1 pg (26.0-34.0); MCV 106.4 fL (80.0-100.0); RBC 2.23 mil/uL (4.20-5.00); WBC 6.4 thou/uL (4.0-11.0)
[2021-06-16 06:27] LABS: CALCIUM 7.8 mg/dL (8.5-10.1); CREATININE 1.1 mg/dL (0.6-1.0)
--- NOTE | 2021-06-16 07:02 | NUR ---
RECEIVED ORDERS FOR OT EVALUATION. PATIENT HAS A HIP FX, PLAN FOR SURGERY TODAY. WILL NEED POST-OP ORDERS.
[2021-06-16 07:50] VITALS: BP 138/87
--- NOTE | 2021-06-16 08:27 | NUR ---
Pt W/ HIP FRACTURE AND PLAN FOR SURGERY TODAY W/ ORTHO. WILL NEED UPDATED PT ORDERS S/P SURGICAL INTERVENTION BEFORE PT CAN BE INITIATED.
[2021-06-16 08:30] VITALS: BP 151/79
--- NOTE | 2021-06-16 14:51 | NUR ---
ASSUMED CARE OF PT AT 0700 THIS MORNING. PT HAS LT FEMUR FX AFTER FALL. PT IS NPO AND GOING TO SURGERY LATER IN THE MORNING. PT WENT TO PRE OP AT 0830 AND RETURNED AT 1038. PT HAS BEEN SLEEPING ON AND OFF DUE TO SURGERY. PT IS A/OX1 AND CONFUSED. LT HIP AREA DRESSED WITH ABD PADS, AND ICE PK. LINDSAY'S AND SCD'S NOT USED DUE TO CELLULITIS IN LOWER EXTREMITIES. ASSESSMENTS NOTED IN CHART AND OTHERWISE UNREMARKABLE. IV IN LT AC AND FALL PRECAUTIONS ARE IN PLACE. CALL LIGHT AND OTHER NEEDS ARE IN REACH, MEDS AND TX GIVEN NEEDED AND SCHEDULED. WILL MONITOR AND NOTE ANY CHANGES.
--- NOTE | 2021-06-16 15:46 | NUR ---
on-going assessment: pt had surgery today for left femoral neck fx. cm met with patient at the bedside. cm discussed likely need of snf at discharge. cm stated pt had been to [facility] in the past and if she wanted to go back there or cm could provide her with a snf list. pt stated ok. cm faxed referral to [facility] location and awaiting input.
[2021-06-16 16:50] VITALS: BP 106/53
[2021-06-16 19:29] VITALS: BP 137/72
--- NOTE | 2021-06-17 02:38 | NUR ---
patient aox1 confused and forgetful. patient seem to be answering to internal stimuli. patient talks to unseen others. patient left hip dressing is c/d/i. ice pack offered. patient incontient this shift pericare and barrier cream applied. patient encouraged fluids. patient turned as patient can tolerate back and right side only.pain controlled this shift.fall precaution in place.patient in bed asleep at this time breathing regular and unlaboured.
[2021-06-17 04:20] VITALS: BP 148/80
[2021-06-17 07:24] VITALS: BP 142/72
[2021-06-17 10:35] LABS: ABSOLUTE NEUTROPHILS 6.4 thou/uL (1.4-8.2); BASOPHILS 0.4 % (0.0-2.0); HEMATOCRIT 28.9 % (37.0-47.0); HEMOGLOBIN 9.4 gm/dL (12.0-15.0); LYMPHOCYTES 4.3 % (24.0-44.0); MCH 34.3 pg (26.0-34.0); MCHC 32.6 g/dL (28.0-37.0); MCV 105.3 fL (80.0-100.0); PLATELET COUNT 151 thou/uL (150-400); POLYS 89.3 % (36.0-66.0); RBC 2.75 mil/uL (4.20-5.00); RDW 16.2 % (10.5-14.5); WBC 7.2 thou/uL (4.0-11.0)
[2021-06-17 10:47] LABS: CALCIUM 8.6 mg/dL (8.5-10.1); CREATININE 1.2 mg/dL (0.6-1.0); POTASSIUM 4.3 mmol/L (3.5-5.1)
--- NOTE | 2021-06-17 15:57 | NUR ---
ON-GOING ASSESSMENT: CM REVIEWED CHART AND SPOKE WITH ATTENDING. PT IS NEEDING SNF AT DISCHARGE HOWEVER REFUSED TO WORK WITH THERAPY IN AM. PT DID WORK WITH THERAPY THIS AFTERNOON. PT IS STILL CONFUSED. [facility] IS FOLLOWING BUT NEEDS MORE INFORMATION AND WANTS TO CONTINUE TO SEE IF HER COGNITITON IMPROVES BEFORE ACCEPTING SHE HAS NO FAMILY CONTACT/DPOA. PT ANSWER SOME QUESTIONS APPROPRIATELY BUT THEN SPEAKS ABOUT UNRELATED THINGS. PT WAS AGREEABLE WITH REFERRAL TO [facility]. NO WEEKEND DISCHARGE ANTICIPATED.
[2021-06-17 16:33] VITALS: BP 120/69
--- NOTE | 2021-06-17 18:30 | NUR ---
PT ASSESSED AT START OF SHIFT. PT HAD MUCH HIP PAIN THIS AM BUT LESSENED LATER IN SHIFT. AMBULATED W/ THERAPY USING WALKER DOWN THE SETH AND DID VERY WELL. SAT UP FOR SEVERAL HOURS. LESS CONFUSED. EATING AND DRINKING BETTER.
[2021-06-17 19:44] VITALS: BP 108/61
--- NOTE | 2021-06-18 02:40 | NUR ---
assumed care of pt at 1900. Pt in recliner, calm with appropriate behavior. reoriented pt to environment. Pt having L hip pain, charge nurse gave IV pain medicine. NITHYA assessment complete. Kim care done, and barrier cream applied to coccyx and groin areas. Pt denies nay other needs at this time.[facility].
[2021-06-18 05:12] VITALS: BP 126/67
[2021-06-18 07:40] VITALS: BP 154/72
--- NOTE | 2021-06-18 09:19 | NUR ---
Assumed care of pt at 0700. Pt alert but forgetful. Dressing c/d/i. Pt denies pain this am. IV antibiotics infusing. WBT. RA. PT/OT. Call light within reach. Fall precautions in place. Will continue to monitor.
[2021-06-18 16:01] VITALS: BP 125/69
[2021-06-18 19:50] VITALS: BP 151/78
--- NOTE | 2021-06-19 04:19 | NUR ---
PT ALERT/CONFUSED AND FORGETFUL AT START OF SHIFT.PT OBSERVED SITTING UP IN THE RECLINER IN HER ROOM AT SHIFT CHANGE.PT REF TREATMENT TO HER BLE.ZGUARD TO HER BUTTOCKS DUE TO REDNESS.PT SLEPT MOST OF THE NIGHT ON HER BED BEFORE GETTING UP TO THE RECLINER IN HER ROOM.PT CONT ON IVF.CALL LIGHT WITHIN REACH.
[2021-06-19 08:48] VITALS: BP 162/81
--- NOTE | 2021-06-19 10:12 | NUR ---
Assumed care of pt at 0700. Pt alert but fotgetful. Dressin c/d/i. Pain controlled. Up x1 assist to the chair. Pt refuses wound care on BLE. Call light within reach. Fall precautions in place. Will continue to monitor.
[2021-06-19 16:26] VITALS: BP 121/65
[2021-06-19 16:46] LABS: HEMATOCRIT 25.2 % (37.0-47.0); HEMOGLOBIN 8.2 gm/dL (12.0-15.0); MCH 34.4 pg (26.0-34.0); MCHC 32.4 g/dL (28.0-37.0); MCV 106.2 fL (80.0-100.0); RBC 2.37 mil/uL (4.20-5.00); RDW 16.5 % (10.5-14.5); WBC 3.9 thou/uL (4.0-11.0)
[2021-06-19 17:01] LABS: CALCIUM 8.2 mg/dL (8.5-10.1); CREATININE 1.5 mg/dL (0.6-1.0); POTASSIUM 3.6 mmol/L (3.5-5.1)
[2021-06-19 19:10] VITALS: BP 171/90
[2021-06-20 04:42] VITALS: BP 144/72
--- NOTE | 2021-06-20 05:01 | NUR ---
PT HAD A MODERATE SOFT FORMED BROWN STOOL IMMEDIATELY AFTER SHIFT CHANGE.PT ALERT AND CONFUSED.PT CONT ON IV ABX ORDERED.PT REF DRSG TO HER BLE.Z GUARD TO HER BUTTOCK DUE TO REDNESS.PT SLEPT THROUGH THE NIGHT.CALL LIGHT WITHIN REACH.
[2021-06-20 05:48] LABS: HEMOGLOBIN 7.2 gm/dL (12.0-15.0); MCH 34.6 pg (26.0-34.0); MCHC 32.9 g/dL (28.0-37.0); MCV 105.2 fL (80.0-100.0); RBC 2.09 mil/uL (4.20-5.00); RDW 16.3 % (10.5-14.5); WBC 4.4 thou/uL (4.0-11.0)
[2021-06-20 06:04] LABS: CALCIUM 7.7 mg/dL (8.5-10.1); CREATININE 1.4 mg/dL (0.6-1.0); POTASSIUM 3.4 mmol/L (3.5-5.1)
[2021-06-20 08:21] VITALS: BP 133/66
--- NOTE | 2021-06-20 13:35 | NUR ---
ON-GOING ASSESSMENT: CM REVIEWED CHART. PT IS MORE ALERT WITH CM TODAY. CM DISCUSSED ATTENDING IS RECOMMENDING SNF AT DISCHARGE. PT IS AGREEABLE FOR SNF AND AGREEABLE TO GO BACK TO [facility] WHICH SHE HAS BEEN TO IN THE PAST. CM SPOKE WITH CHICHI HAYWOOD FROM [facility] WHO REPORTS THEY CAN ACCEPT WHEN STABLE. CM FAXED UPDATED CLINICAL TO [facility]. PLANS OF POSSIBLE DISCHARGE TO SNF TOMORROW. CM WILL CONTINUE TO FOLLOW TO ASSIST NEEDED.
[2021-06-20 16:50] VITALS: BP 124/66
--- NOTE | 2021-06-20 18:30 | NUR ---
PT ASSESSED AT START OF SHIFT. PROGRESSING WELL. AMBULATING W/ WALKER AND SITTING UP FOR SEVERAL HOURS IN CHAIR. INCISION HEALING. EDEMA IN LEGS BETTER. VERY LITTLE PAIN. MORE CONVERSANT. EATING WELL.
[2021-06-20 18:58] VITALS: BP 108/56
--- NOTE | 2021-06-21 02:50 | NUR ---
PT CARE ASSUMED WITH PT IN THE CHAIR SLEEPING.PT IS A/O X3.PT IS UP WITH X1 ASSIST TO THE BSC WITH GAIT BELT AND WALKER.PT IS DRESSING ON LT HIP I/C/D.PT C/O PAIN AND PAIN MANAGED WITH NORCO WITH RELIEF.IV ACCESS ON RT FA SL.PT IS ON ROOM AIR.FALL PRECAUTIONS IN PLACE.WILL CONTINUE TO MONITOR PER POC
[2021-06-21 04:18] VITALS: BP 121/63
[2021-06-21 08:32] VITALS: BP 149/67
[2021-06-21 08:39] VITALS: BP 149/69
--- NOTE | 2021-06-21 11:28 | NUR ---
ASSUMED PT CARE THIS AM. PT IS ALERT & ORIENTED X 2 TO PERSON AND SITUATION AND CONFUSED AT TIMES. PT IS UP WITH ASSIST X1 WITH WALKER AND GAITBELT. DID WOUND DRESSING ON BILATERAL LE WITH NS, XEROFORM, ABD, KERLIX AND TAPE AND ON SACRUM WITH NS, BARRIER CREAM. PT IS ON ROOM AIR. PT TOLERATED MEDICATION AND DIET WELL. NO C/O OF PAIN, NAUSEA AND VOMITING THIS AM. WILL CONTINUE TO MONITOR PT. FOLLOW POC.
--- NOTE | 2021-06-21 12:56 | NUR ---
on-going assessment: CM REVIEWED CHART AND SPOKE WITH PATIENT. PT IS AGREEABLE TO GO TO [facility]. CHART COPY WAS ORDERED AND BUNCH BREAKER MACHINE OPERATOR NOTIFIED. CM FAXED DSICHARGE PAPERWORK TO [facility] AND NOTIFIED [facility] AND CONFIRMED THEY RECEIVED IT. TRANSPORTATION HAS BEEN ARRANGED FOR 1400. BEDSIDE RN AND PT AWARE. BEDSIDE RN HAS THE NUMBER FOR REPORT. PT REPORTS NO FURTHER NEEDS FROM CM PRIOR TO DISCHARGE. [facility] FAMILIAR WITH PATIENT SHE WAS WITH THEM RECENTLY. CASE CLOSED.
== END 2021-06-21 14:09 | DRG 480 ==
LOC: ER 00:23 → EROBS 03:32 → 4S 03:32 → EROBS 03:33 → 4S 04:18
PROVIDERS: Emergency Medicine; Hospitalist; Nurse Practitioner Family; ADMIT Surgery; ATTEND Surgery
PROC: 0QH734Z Insertion of Internal Fixation Device into Left Upper Femur, Percutaneous Approach (ICD-10-PCS; principal; 2021-06-16)
DX: S72.002A Fracture of unspecified part of neck of left femur, initial encounter for closed fracture (principal); N17.0 Acute kidney failure with tubular necrosis; L03.116 Cellulitis of left lower limb; L03.115 Cellulitis of right lower limb; E44.0 Moderate protein-calorie malnutrition; Z68.1 Body mass index [BMI] 19.9 or less, adult; E78.5 Hyperlipidemia, unspecified; F32.9 Major depressive disorder, single episode, unspecified; Z96.641 Presence of right artificial hip joint; I25.10 Atherosclerotic heart disease of native coronary artery without angina pectoris; N18.9 Chronic kidney disease, unspecified; M19.90 Unspecified osteoarthritis, unspecified site; I25.5 Ischemic cardiomyopathy; I48.0 Paroxysmal atrial fibrillation; I12.9 Hypertensive chronic kidney disease with stage 1 through stage 4 chronic kidney disease, or unspecified chronic kidney disease; I87.2 Venous insufficiency (chronic) (peripheral); I73.9 Peripheral vascular disease, unspecified; R53.81 Other malaise; Z20.822 Contact with and (suspected) exposure to COVID-19; S31.010A Laceration without foreign body of lower back and pelvis without penetration into retroperitoneum, initial encounter; S41.112A Laceration without foreign body of left upper arm, initial encounter; Z60.2 Problems related to living alone; L89.326 Pressure-induced deep tissue damage of left buttock; L89.316 Pressure-induced deep tissue damage of right buttock; Z90.710 Acquired absence of both cervix and uterus; Z86.718 Personal history of other venous thrombosis and embolism; Z90.49 Acquired absence of other specified parts of digestive tract; Z95.1 Presence of aortocoronary bypass graft; Z95.820 Peripheral vascular angioplasty status with implants and grafts; W18.39XA Other fall on same level, initial encounter; Y93.89 Activity, other specified; Y92.89 Other specified places as the place of occurrence of the external cause; Y99.8 Other external cause status; Z79.82 Long term (current) use of aspirin; Z79.899 Other long term (current) drug therapy
CPT/HCPCS: 10195; 50010; 50101; 50386; 51412; 51538; 52304; 53400; 53402; 57092; 62110; 62900; 70005

== ENCOUNTER 2021-07-09 14:04 | Inpatient (IN) | payer OTHER ==
[~2021-07-09] VITALS: Ht 162.6 cm; Wt 56.6 kg
--- NOTE | ~2021-07-09 | EMS ---
[address] [address] EMS Patient Care Report Name: PASCUAL HAAS Room #: 451-P ADM IN M.R.#: [id number] Admission: 07/09/21 Attend Phys: Victor Hugo Rose MD Discharge: Date of : 42 Report #: [id number] THIS REPORT FOR: //name// Report Transmitted: 07/11/2021 11:41 EMS Care Summary [place], [place]/[facility] Incident [id number] @ 07/09/2021 13:34 Incident Location [address] Patient PASCUAL HAAS Female, 81 Years 1940 Patient Address [address] [place] [address] Patient History Hypertension (HTN),Hyperlipidemia,Atrial Fibrillation, Patient Allergies No known allergies, Patient Medications Plavix, Atorvastatin, Lisinopril, Chief Complaint AMS Disposition Transported No Lights/[place] Dispatch Reason Sick Person Transported To [facility] Narrative UPON ARRIVAL WE FOUND OUR 81 YEAR OLD FEMALE PATIENT SITTING IN HER ROOM AT [facility] WITH ALS P36 AND STAFF BY HER SIDE. STAFF STATES THE PATIENT HAS BEEN CONFUSED AND HALLUCINATING SINCE SHE WOKE UP THIS MORNING. WE FOUND [facility] [address] [place] [address] EMS Patient Care Report Name: PASCUAL HAAS Room #: 451-P [facility] IN [facility]#: [id number] Admission: 07/09/21 Attend Phys: Victor Hugo Rose MD Discharge: Date of : 42 Report #: [id number] THE PATIENT TO BE A&OX3-GCS 15. SHE STATES SHE IS FINE AND IS MERELY HAVING A BAD DAY AND DOESN'T FEEL LIKE HAVING A CONVERSATION WITH STAFF. HOWEVER, THE PATIENT AGREES TO BE TRANSPORTED TO [facility] FOR EVALUATION. Initial Vitals @13:52P: 75,SpO2: 82, @13:54P: 68,R: 18,BP: 123/65,Pain: 0/10,GCS: 15,SpO2: 95,Revised Trauma: 12,NV Suspected: false @13:52P: 64,R: 16,BP: 123/60,Pain: 0/10,GCS: 15,Glucose: 136,SpO2: 98,Revised Trauma: 12,NV Suspected: false Assessments @13:48MENTAL:Person Oriented,Time Oriented,Place Oriented,Event Oriented,SKIN:HEENT:Eyes: Right Pupil: 4-mm,Eyes: Left Pupil: 4-mm,Head/Face: No Abnormalities,Neck/Airway: No Abnormalities,LUNG SOUNDS:General: No Abnormalities,ABDOMEN:General: No Abnormalities,PELVIS//GI:No Abnormalities,EXTREMITIES:Left Leg: Edema,Left Arm: No Abnormalities,Right Arm: No Abnormalities,Right Leg: No Abnormalities,PULSE:Radial: 2+ Normal,NEURO:No Abnormalities, Impression Altered Mental Status Procedures @13:523-Lead ECGResponse: UnchangedSucceeded@13:55Saline Lock 0cc (20 ga) Site: Forearm-LeftResponse: UnchangedSucceeded@13:48ALS AssessmentResponse: UnchangedSucceeded Timeline 13:32,Call Received 13:32,Dispatch Notified 13:34,Dispatched 13:35,En Route 13:45,On Scene 13:48,At Patient 13:48,ALS Assessment,Response: UnchangedSucceeded, 13:52,3-Lead ECG,Response: UnchangedSucceeded, 13:52,BP: / M,PULSE: 75,RR: R,SPO2: 82 Ox,ETCO2: ,BG: ,PAIN: ,GCS: , 13:52,BP: 123/60 M,PULSE: 64,RR: 16 R,SPO2: 98 Ox,ETCO2: ,B,PAIN: 0,GCS: 15, 13:54,BP: 123/65 M,PULSE: 68,RR: 18 R,SPO2: 95 Ox,ETCO2: ,BG: ,PAIN: 0,GCS: 15, 13:55,Saline Lock 0cc 20 ga Site: Forearm-Left,Response: UnchangedSucceeded, 13:58,Depart Scene 14:00,At Destination 14:17,Call Closed [facility] [address] [place] [address] EMS Patient Care Report Name: PASCUAL HAAS Room #: 451-P ADM IN M.R.#: [id number] Admission: 07/09/21 Attend Phys: Victor Hugo Rose MD Discharge: Date of : 42 Report #: [id number] Disclaimer v1.1 Copyright 202 [employer] This EMS Care Summary contains data elements from the applicable legal record (which may be displayed differently). It is designed to provide pertinent information for the following purposes: continuity of care, clinical quality, and state data reporting. The complete legal record is available to ED staff and administrators of the receiving hospital in [employer]'s Patient Tracker. All data is provided "as is."
[2021-07-09 14:12] VITALS: BP 129/53
[2021-07-09 15:16] LABS: ABSOLUTE NEUTROPHILS 4.3 thou/uL (1.4-8.2); MCH 34.4 pg (26.0-34.0)
[2021-07-09 15:18] LABS: BASOPHILS 0.5 % (0.0-2.0); EOSINOPHILS 2.4 % (0.0-3.0); LYMPHOCYTES 14.3 % (24.0-44.0); MCHC 31.5 g/dL (28.0-37.0); MCV 109.3 fL (80.0-100.0); PLATELET COUNT 166 thou/uL (150-400); POLYS 69.8 % (36.0-66.0); RBC 1.71 mil/uL (4.20-5.00); RDW 17.6 % (10.5-14.5); WBC 6.1 thou/uL (4.0-11.0)
[2021-07-09 15:31] LABS: HEMOGLOBIN 5.9 gm/dL (12.0-15.0)
[2021-07-09 15:32] LABS: HEMATOCRIT 18.7 % (37.0-47.0)
[2021-07-09 15:40] LABS: ALBUMIN 2.2 g/dL (3.4-5.0); CALCIUM 7.7 mg/dL (8.5-10.1); CREATININE 1.1 mg/dL (0.6-1.0); TOTAL BILIRUBIN 0.9 mg/dL (0.2-1.0); TOTAL PROTEIN 5.4 g/dL (6.4-8.2)
[2021-07-09 17:33] LABS: ANISOCYTOSIS 1+; HYPOCHROMASIA 2+; MACROCYTES 1+
[2021-07-09 17:52] VITALS: BP 118/52
[2021-07-09 18:24] VITALS: BP 118/52
[2021-07-09 18:36] LABS: ALBUMIN 2.3 g/dL (3.4-5.0); TOTAL PROTEIN 5.3 g/dL (6.4-8.2)
[2021-07-09 18:48] LABS: POTASSIUM 4.5 mmol/L (3.5-5.1)
[2021-07-09 20:35] VITALS: BP 114/50
[2021-07-09 21:59] VITALS: BP 118/57; BP 120/54; BP 144/58; BP 149/59; BP 150/59
[2021-07-10 00:59] VITALS: BP 150/59
[2021-07-10 01:12] VITALS: BP 144/57
--- NOTE | 2021-07-10 01:42 | NUR ---
Assumed pt care at 1900. A/OX3,confused and easily irritable on assessment stating she don't know why she's here and she would like to leave.Explained to pt her hemoglobin is low and she needs a blood transfusion,pt's own guardian verbalized understanding and signed own consent;witnessed by smokehouse operator.Pt insisting she wants to get up,educated on safety in regard to her hemoglobin several times,bedpan offered but hesitant to and wants to wait until later. Blood transfusion completed with no ADR noted. Wounds noted on left buttom/left lateral leg,pictures taken and wound care consulted. Fall precautions in place. SR on telemetry. Will continue to monitor pt.
[2021-07-10 04:21] VITALS: BP 125/50
[2021-07-10] MEDS ORDERED: PROTONIX40 M2 PO (05:07)
[2021-07-10 07:03] LABS: HEMOGLOBIN 6.7 gm/dL (12.0-15.0); RDW 19.8 % (10.5-14.5)
[2021-07-10 07:05] LABS: MCH 34.6 pg (26.0-34.0); MCHC 33.8 g/dL (28.0-37.0); RBC 1.94 mil/uL (4.20-5.00); WBC 5.6 thou/uL (4.0-11.0)
[2021-07-10 07:07] LABS: MCV 102.1 fL (80.0-100.0)
[2021-07-10 07:20] LABS: CALCIUM 7.7 mg/dL (8.5-10.1); CREATININE 1.1 mg/dL (0.6-1.0); MAGNESIUM 1.9 mg/dL (1.8-2.4); POTASSIUM 4.6 mmol/L (3.5-5.1)
[2021-07-10 07:32] VITALS: BP 130/63
[2021-07-10 10:09] VITALS: BP 104/50; BP 108/48; BP 137/62
--- NOTE | 2021-07-10 17:09 | NUR ---
TODAY THIS PT HAS BEEN SB IN THE 50S WITH SOME STATED PAIN IN WHICH SHE HAS RECIEVED MEDICATIONS FOR. SHE HAS RECIEVED ANOTHER UNIT OF BLOOD DURING MY SHIFT MAKING HER TOTAL OF 2 UNITS OF PRBC. SHE HAS BEEN ASLEEP FOR MOST OF THE DAY AFTER THERAPY WORKED WITH HER. SHE IS ABLE TO MOVE WELL WITH THE WALKER AND GAIT BELT WITH ONE ASSIST. SHE DOES HAVE PAIN WITH THOSE WOUNDS SHE HAS BUT TOLERATED THE DRESSING CHANGE WELL.
[2021-07-10 22:10] VITALS: BP 122/60
--- NOTE | 2021-07-11 | NUR ---
UPON SHIFT ASSESSMENT, PT AOX3, TO PERSON, TIME, AND SITUATION. FORGETFULNESS NOTED. PT REPORTS 7/10 PAIN IN LLE. PT HAS PRN PO APAP Q4HR AND PRN TOPICAL VOLTAREN GEL QID AVAILABLE, PT REFUSING ADMINISTRATION. PT DENIES SOB WHILE ON ROOM AIR. PT TOLERATING PO INTAKE OF FLUIDS AND CARB CONTROLLED DIET WITHOUT ISSUE. PT WITHOUT NAUSEA OR EMESIS. PT VOIDING PER BEDPAN WITH INTERMITTENT INCONTINENCE. PT RESTING IN BED, FREQUENT REPOSITIONING ENCOURAGED. PT NOTED TO SHIFT SLIGHTLY ON HER OWN, REFUSING REPOSITIONING ASSISTANCE. GENERALIZED WEAKNESS NOTED. +3 PITTING EDEMA IN LLE, +4 PITTING EDEMA IN RLE. SENSATION INTACT, CAPILLARY REFILL LESS THAN 3SEC, PERIPHERAL PULSES PALPABLE IN BUE, PEDAL PULSES FAINT. PT ENCOURAGED TO NOTIFY STAFF FOR ALL NEEDS, CALL LIGHT WITHIN REACH, BED ALARM ON, BED LOCKED IN LOWEST POSITION, FREQUENT MONITORING WILL CONTINUE.
[2021-07-11 05:41] LABS: HEMATOCRIT 28.1 % (37.0-47.0); HEMOGLOBIN 9.5 gm/dL (12.0-15.0); MCH 34.2 pg (26.0-34.0); MCHC 33.7 g/dL (28.0-37.0); MCV 101.6 fL (80.0-100.0); RBC 2.77 mil/uL (4.20-5.00); WBC 7.3 thou/uL (4.0-11.0)
[2021-07-11 06:10] LABS: CALCIUM 7.8 mg/dL (8.5-10.1); CREATININE 1.5 mg/dL (0.6-1.0); POTASSIUM 4.2 mmol/L (3.5-5.1)
--- NOTE | 2021-07-11 07:32 | EKG ---
[address] [address] ELECTROCARDIOGRAM REPORT Name: PASCUAL HAAS Room #: 451-P ADM IN M.R.#: [id number] Admission: 07/09/21 Attend Phys: Victor Hugo Rose MD Discharge: Date of : 42 Report #: [id number] [facility] ED Test Date: 2021-07-09 Test Time: 15:04:38 Pat Name: PASCUAL HAAS Department: Room: [facility] Gender: F [facility] Owner: vera : 1940 Requested By: Jose Alfredo Armstrong Order Number: [id number] MD: Akbar Owen Measurements Intervals [place] Rate: 62 P: 93 AL: 47 QRS: 27 QRSD: 78 T: 159 QT: 461 QTc: 469 Interpretive Statements Sinus rhythm Short AL interval Probable left atrial enlargement Anteroseptal infarct, age indeterminate Compared to ECG 06/15/2021 03:59:04 Short AL interval now present Myocardial infarct finding now present Left ventricular hypertrophy no longer present Early repolarization no longer present Electronically Signed On 07-11-2021 7:32:12 CDT by Akbar Owen [email or web address] <ELECTRONICALLY SIGNED> By: Akbar Owen MD, FAC 07/11/21 0732 1504 1504 Akbar Owen MD, [facility] /EPI
[2021-07-11 07:40] VITALS: BP 145/64
--- NOTE | 2021-07-11 11:25 | NUR ---
ASSUMED PT CARE THIS AM. PT A&OX3, ABLE TO MAKE NEEDS KNOWN. PATIENT REPORTS NO NUMBNESS OR TINGLING. IV PATENT, FLUIDS INFUSING. PATIENT ABLE TO AMBULATE WITH ASSIST AROUND ROOM. FALL PRECAUTIONS ARE IN PLACE, CALL LIGHT WITHIN REACH.
--- NOTE | 2021-07-11 14:17 | NUR ---
Nutrition: Recommend change diet to heart healthy.
[2021-07-11] MEDS ORDERED: MIRTAZAPINE7.5 MG PO (14:50)
[2021-07-11] MEDS ORDERED: TRAMADOL 50 MG50 MG PO ×2 (14:51→14:52)
[2021-07-11] MEDS ORDERED: ZOFRAN4 MG PO (14:51)
--- NOTE | 2021-07-11 15:22 | NUR ---
PT ADMITTED RELATED TO [facility]EMIA; AMS. CM REVIEWED CHART AND SPOKE WITH CARE TEAM. CM MET WITH PT AT BEDSIDE THIS DAY. PT WAS ALERT TO SELF. CM ROLE INTRODUCED. PT HAD BEEN AT [facility] PRIOR TO ADMISSION. PT HAD DC'S THERE 06/21 FOLLOWING HIP SURGERY. PLAN IS FOR PT TO RETURN THERE AND RESUME THERAPY SERVICES ONCE MEDICALLY STABLE. CM MENTIONED THAT RECOMMENDATION TO PT THIS AFTERNOON AND SHE INDICATED THAT SHE WOULD PREFER NOT TO RETURN TO [facility] UPON DC. CM INDICATED THAT OF RIGHT NOW THAT IS THE RECOMMENDATION BUT THAT CM WOULD CONVEY THAT TO THE CARE TEAM AND FOLLOW UP WIHT PT. CARE TEAM INDICATED POSSIBLE DC BACK TO [facility] TOMORROW. CM NOTIFIED FACILITY. CM FOLLOWING REGARDING DC PLANNING.
[2021-07-11 20:36] VITALS: BP 125/52
[2021-07-12 05:23] LABS: HEMATOCRIT 23.6 % (37.0-47.0); HEMOGLOBIN 7.9 gm/dL (12.0-15.0); MCH 33.8 pg (26.0-34.0); MCHC 33.4 g/dL (28.0-37.0); MCV 101.2 fL (80.0-100.0); RBC 2.33 mil/uL (4.20-5.00); RDW 17.6 % (10.5-14.5); WBC 5.9 thou/uL (4.0-11.0)
[2021-07-12 05:55] LABS: CALCIUM 7.5 mg/dL (8.5-10.1); CREATININE 1.4 mg/dL (0.6-1.0); MAGNESIUM 1.9 mg/dL (1.8-2.4)
--- NOTE | 2021-07-12 06:27 | NUR ---
Pt. rested quietly at intervals during the night when checked on during frequent rounds. Up to the bedside comode with assistance of one. No c/o pain. Bed alarm is on.
[2021-07-12 07:55] VITALS: BP 144/74
--- NOTE | 2021-07-12 11:52 | NUR ---
ASSUMED PT CARE THIS AM. PT A&OX4, ABLE TO MAKE NEEDS KNOWN WITH CALL LIGHT. PATIENT MORE ORIENTED THIS SHIFT AND HAS BEEN COOPERATIVE WITH CARES. WOUND CARE COMPLETED ORDERED. IV REMAINS PATENT, FLUIDS INFUSING. PATIENT REPORTING SOME PAIN TO LOWER EXTREMETIES THAT DECREASES WITH REST AND PAIN MEDICATION GIVEN PER EMAR. PATIENT REPORTS NO NUMBNESS OR TINGLING. FALL PRECAUTIONS ARE IN PLACE, CALL LIGHT WITHIN REACH.
--- NOTE | 2021-07-12 12:08 | NUR ---
CARE TEAM INDICATED THAT PT IS PROGRESSING TOWARD GOAL OF RETURNING TO SKILLED AT [facility]. CARE TEAM INDICATED THAT THEY CONTINUE TO MONITOR PT'S HGB AND THAT SHE MAY BE DC READY TOMORROW. CM UPDATED [facility]. CM FAXED CLINICAL TO FACILITY.
[2021-07-12 12:18] VITALS: BP 137/62
[2021-07-12 16:37] VITALS: BP 126/53
[2021-07-12 16:46] VITALS: BP 126/53
[2021-07-12 18:56] VITALS: BP 140/68
[2021-07-13 04:11] VITALS: BP 133/56
--- NOTE | 2021-07-13 04:39 | NUR ---
Pt. rested quietly during the night when checked on during frequent rounds. She c/o pain to her buttocks and po pain med given (see emar) with some relief noted. Bed alarm is on.
[2021-07-13 05:18] LABS: HEMATOCRIT 26.7 % (37.0-47.0); HEMOGLOBIN 8.9 gm/dL (12.0-15.0); MCH 34.1 pg (26.0-34.0); MCHC 33.3 g/dL (28.0-37.0); MCV 102.4 fL (80.0-100.0); RBC 2.61 mil/uL (4.20-5.00); RDW 17.6 % (10.5-14.5); WBC 5.5 thou/uL (4.0-11.0)
[2021-07-13 05:55] LABS: CREATININE 1.8 mg/dL (0.6-1.0)
[2021-07-13 07:28] VITALS: BP 146/72
[2021-07-13 07:55] VITALS: BP 146/72
[2021-07-13] MEDS ORDERED: IRON325 PO (11:59)
--- NOTE | 2021-07-13 12:15 | NUR ---
ASSUMED PT CARE THIS AM. PT IS ALERT & ORIENTED X3 TO PERSON, TIME AND SITUATION. PT IS UP WITH ASSIST X1 WITH GAITBELT AND WALKER. PT HAS IV SITE ON MELISSA SALINE LOCKED. PT IS INCONTINENT OF BOWEL AND BLADDER. LAST BM WAS YESTERDAY. PT IS ON ROOM AIR. DID WOUND CARE ON BILATERAL LOWER EXTREMITIES WITH NS, XERFORM, ABD, KERLIX AND MARLA. AND SACRUM WITH NS, BARRIER CREAM AND SACRAL FOAM. WILL REMOVED IV. CALLED IGNITE BUT NO ONE IS ANSWERING. WILL ATTEMPT TO CALL AGAIN FOR HANDS OFF REPORT. AWAITING FOR TRANSPORTATION. WILL CONTINUE TO MONITOR PT. FOLLOW POC.
--- NOTE | 2021-07-13 12:24 | NUR ---
CARE TEAM INDICATE THAT PT IS MEDICALLY STABLE TO DC BACK TO [facility] SKILLED THIS DAY. CHART COPY MADE. ORDERS FAXED. VAN TRANSPORT ARRANGED FOR 1330. PT IS AWARE AND AGREEABLE. NURSE GIVEN DEE FOR REPORT. NO OTHER CM INTERVENTION INDICATED CASE CLOSED.
--- NOTE | 2021-07-13 12:30 | NUR ---
FAXED DISCHARGE ORDERS AND SUMMARY TO [facility]. WILL CONFIRM WITH [facility] THAT THEY RECEIVED. [facility] - [phone]; FAX [phone]
== END 2021-07-13 14:17 | DRG 592 ==
LOC: ER 14:04 → EROBS 17:58 → 4W 17:58
PROVIDERS: Emergency Medicine; ADMIT Internal Medicine; ATTEND Internal Medicine
PROC: 30233N1 Transfusion of Nonautologous Red Blood Cells into Peripheral Vein, Percutaneous Approach (ICD-10-PCS; principal; 2021-07-09)
DX: L89.313 Pressure ulcer of right buttock, stage 3 (principal); E43 Unspecified severe protein-calorie malnutrition; N17.9 Acute kidney failure, unspecified; G93.40 Encephalopathy, unspecified; D53.9 Nutritional anemia, unspecified; I25.10 Atherosclerotic heart disease of native coronary artery without angina pectoris; I25.5 Ischemic cardiomyopathy; I73.9 Peripheral vascular disease, unspecified; E78.5 Hyperlipidemia, unspecified; R53.81 Other malaise; Z96.642 Presence of left artificial hip joint; N18.30 Chronic kidney disease, stage 3 unspecified; F32.9 Major depressive disorder, single episode, unspecified; Z96.641 Presence of right artificial hip joint; M19.90 Unspecified osteoarthritis, unspecified site; I48.0 Paroxysmal atrial fibrillation; T14.8XXA Other injury of unspecified body region, initial encounter; Z60.2 Problems related to living alone; I12.9 Hypertensive chronic kidney disease with stage 1 through stage 4 chronic kidney disease, or unspecified chronic kidney disease; E53.8 Deficiency of other specified B group vitamins; L30.8 Other specified dermatitis; L30.9 Dermatitis, unspecified; Z68.21 Body mass index [BMI] 21.0-21.9, adult; Z95.1 Presence of aortocoronary bypass graft; Z90.710 Acquired absence of both cervix and uterus; Z95.5 Presence of coronary angioplasty implant and graft; Z95.820 Peripheral vascular angioplasty status with implants and grafts; Z86.718 Personal history of other venous thrombosis and embolism; Z90.49 Acquired absence of other specified parts of digestive tract; Z82.49 Family history of ischemic heart disease and other diseases of the circulatory system; Z47.89 Encounter for other orthopedic aftercare; Z79.899 Other long term (current) drug therapy; X58.XXXA Exposure to other specified factors, initial encounter; Y93.89 Activity, other specified; Y92.89 Other specified places as the place of occurrence of the external cause; Y99.8 Other external cause status; Z20.822 Contact with and (suspected) exposure to COVID-19
CPT/HCPCS: 10045

== ENCOUNTER 2021-10-20 00:27 | Emergency (ER) | payer OTHER ==
[~2021-10-20] VITALS: Ht 167.6 cm; Wt 63.5 kg
--- NOTE | ~2021-10-20 | EMS ---
[address] [address] EMS Patient Care Report Name: PASCUAL HAAS Room #: DEP AIDEN Moran#: [id number] Admission: 10/20/21 Attend Phys: Discharge: 10/20/21 Date of : 42 Report #: [id number] THIS REPORT FOR: //name// Report Transmitted: 10/20/2021 15:07 EMS Care Summary [facility] MED-ACT Incident [id number] @ 10/19/2021 23:46 Incident Location [address] [place] [address] Patient PASCUAL HAAS Female, 81 Years 1940 Patient Address [address] [place] [address] Patient History Congestive Heart Failure (CHF),Hypertension (HTN),Stroke/CVA,TIA,Coronary Artery Bypass Graft (CABG),Skin Cancer,Cellulitis, Patient Allergies No known allergies, Patient Medications Trazodone, Sertraline, Acetaminophen, Atorvastatin, Ondansetron, Tramadol, Amiodarone, Chief Complaint Dizziness Disposition Transported No Lights/[place] Dispatch Reason Chest Pain (Non-Traumatic) Transported To [address] [address] EMS Patient Care Report Name: PASCUAL HAAS Room #: DEP Luisa#: [id number] Admission: 10/20/21 Attend Phys: Discharge: 10/20/21 Date of : 42 Report #: [id number] responded to reported address for chest pain. Upon arrival, pt met EMS at the door with her walker. Pt had slow gait but was steady. Pt living space was dirty with urine and feces in her chair and on the clothes in her room. Pt was alert and oriented throughout interaction. Pt chief complaint of a short episode of dizziness when standing. Pt states that this was only when she was standing and went away when she sat down. Pt also told EMS that her stomach has been upset recently. Pt told EMS that she hasn't been taking her medications for over a week because home health stopped coming. Her contract with her home health provider so she is no longer getting assistance. Pt also states that she has not changed her leg wrappings in over 2 weeks. Pt said home health was coming by to do physical therapy and help her with cleaning herself. Pt has a bed sore that is getting worse and she doesn't know how to take care of it. Pt told EMS that she can't afford her medications and she can't drive to the doctors to be seen. ABCs intact. Pt obviously unable to take care of her self. Pt was dirty and only wearing a shirt and hospital socks. Her leg wrappings were soaked and dried and coming undone. Knees swollen and red. Unable to examine back. VS obtained. EKG obtained. Pt stood and sat on EMS cot in position of comfort and secured via straps. EMS cot moved to ambulance. Pt transported to [facility] per pt requesting. Pt states her medical records are there. Pt rested comfortably enroute. Radio report given. Upon arrival, EMS cot moved into ER waiting room. Report given to nurse. Pt transferred to wheelchair and left alert and oriented in the waiting room. Pt purse in wheelchair with pt. 1142 cleared. Initial Vitals @23:56P: 62,R: 18,BP: 183/83,Pain: 0/10,GCS: 15,SpO2: 95,Revised Trauma: 12, @00:10P: 87,R: 18,BP: 200/94,GCS: 15,SpO2: 86,Revised Trauma: 12, @00:21P: 57,R: 18,BP: 197/97,GCS: 15,SpO2: 99,Revised Trauma: 12, @23:56P: 61,R: 18,GCS: 15,Temp: 97.9F,SpO2: 100, Impression Fatigue Timeline 23:45,Call Received 23:45,Psap Call 23:46,Dispatched 23:46,En Route 23:49,On Scene 23:52,At Patient 23:56,BP: 183/83 M,PULSE: 62,RR: 18 R,SPO2: 95 Ox,ETCO2: ,BG: ,PAIN: 0,GCS: 15, 23:56,BP: / M,PULSE: 61,RR: 18 R,SPO2: 100 Ox,ETCO2: ,BG: ,PAIN: ,GCS: 15, [facility] [address] [place] [address] EMS Patient Care Report Name: PASCUAL HAAS Room #: DEP Luisa#: [id number] Admission: 10/20/21 Attend Phys: Discharge: 10/20/21 Date of : 42 Report #: [id number] 00:10,Depart Scene 00:10,BP: 200/94 M,PULSE: 87,RR: 18 R,SPO2: 86 Ox,ETCO2: ,BG: ,PAIN: ,GCS: 15, 00:21,BP: 197/97 M,PULSE: 57,RR: 18 R,SPO2: 99 Ox,ETCO2: ,BG: ,PAIN: ,GCS: 15, 00:23,At Destination 01:03,Call Closed Disclaimer v1.1 Copyright 2020 [employer] This EMS Care Summary contains data elements from the applicable legal record (which may be displayed differently). It is designed to provide pertinent information for the following purposes: continuity of care, clinical quality, and state data reporting. The complete legal record is available to ED staff and administrators of the receiving hospital in [employer]'s Patient Tracker. All data is provided "as is."
--- NOTE | ~2021-10-20 | EMS ---
[address] [address] EMS Patient Care Report Name: PASCUAL HAAS Room #: REG AIDEN Moran#: [id number] Admission: 10/20/21 Attend Phys: Discharge: Date of : 42 Report #: [id number] THIS REPORT FOR: //name// Report Transmitted: 10/20/2021 00:37 EMS Care Summary [facility] MED-ACT Incident [id number] @ 10/19/2021 23:46 Incident Location [address] [place] [address] Patient PASCUAL HAAS Female, 81 Years 1940 Patient Address [address] [place] [address] Patient History Congestive Heart Failure (CHF),Hypertension (HTN),Stroke/CVA,TIA,Coronary Artery Bypass Graft (CABG),Skin Cancer,Cellulitis, Patient Allergies No known allergies, Patient Medications Trazodone, Sertraline, Acetaminophen, Atorvastatin, Ondansetron, Tramadol, Amiodarone, Chief Complaint Dizziness Disposition Transported No Lights/[place] Dispatch Reason Chest Pain (Non-Traumatic) Transported To [facility] Narrative [address] [address] EMS Patient Care Report Name: PASCUAL HAAS Room #: REG Eldon#: [id number] Admission: 10/20/21 Attend Phys: Discharge: Date of : 42 Report #: [id number] responded to reported address for chest pain. Upon arrival, pt met EMS at the door with her walker. Pt had slow gait but was steady. Pt living space was dirty with urine and feces in her chair and on the clothes in her room. Pt was alert and oriented throughout interaction. Pt chief complaint of a short episode of dizziness when standing. Pt states that this was only when she was standing and went away when she sat down. Pt also told EMS that her stomach has been upset recently. Pt told EMS that she hasn't been taking her medications for over a week because home health stopped coming. Her contract with her home health provider so she is no longer getting assistance. Pt also states that she has not changed her leg wrappings in over 2 weeks. Pt said home health was coming by to do physical therapy and help her with cleaning herself. Pt has a bed sore that is getting worse and she doesn't know how to take care of it. Pt told EMS that she can't afford her medications and she can't drive to the doctors to be seen. ABCs intact. Pt obviously unable to take care of her self. Pt was dirty and only wearing a shirt and hospital socks. Her leg wrappings were soaked and dried and coming undone. Knees swollen and red. Unable to examine back. VS obtained. EKG obtained. Pt stood and sat on EMS cot in position of comfort and secured via straps. EMS cot moved to ambulance. Pt transported to [facility] per pt requesting. Pt states her medical records are there. Pt rested comfortably enroute. Radio report given. Upon arrival, EMS cot moved into ER waiting room. Report given to nurse. Pt transferred to wheelchair and left alert and oriented in the waiting room. Pt purse in wheelchair with pt. 1142 cleared. Initial Vitals @23:56P: 62,R: 18,BP: 183/83,Pain: 0/10,GCS: 15,SpO2: 95,Revised Trauma: 12, @00:10P: 87,R: 18,BP: 200/94,GCS: 15,SpO2: 86,Revised Trauma: 12, @00:21P: 57,R: 18,BP: 197/97,GCS: 15,SpO2: 99,Revised Trauma: 12, @23:56P: 61,R: 18,GCS: 15,Temp: 97.9F,SpO2: 100, Impression Fatigue Timeline 23:45,Call Received 23:45,Psap Call 23:46,Dispatched 23:46,En Route 23:49,On Scene 23:52,At Patient 23:56,BP: 183/83 M,PULSE: 62,RR: 18 R,SPO2: 95 Ox,ETCO2: ,BG: ,PAIN: 0,GCS: 15, 23:56,BP: / M,PULSE: 61,RR: 18 R,SPO2: 100 Ox,ETCO2: ,BG: ,PAIN: ,GCS: 15, [facility] [address] [place] [address] EMS Patient Care Report Name: PASCUAL HAAS Room #: REG [facility].R.#: [id number] Admission: 10/20/21 Attend Phys: Discharge: Date of : 42 Report #: [id number] 00:10,Depart Scene 00:10,BP: 200/94 M,PULSE: 87,RR: 18 R,SPO2: 86 Ox,ETCO2: ,BG: ,PAIN: ,GCS: 15, 00:21,BP: 197/97 M,PULSE: 57,RR: 18 R,SPO2: 99 Ox,ETCO2: ,BG: ,PAIN: ,GCS: 15, 00:23,At Destination 01:03,Call Closed Disclaimer v1.1 Copyright 2020 [employer] This EMS Care Summary contains data elements from the applicable legal record (which may be displayed differently). It is designed to provide pertinent information for the following purposes: continuity of care, clinical quality, and state data reporting. The complete legal record is available to ED staff and administrators of the receiving hospital in [facility]'s Patient Tracker. All data is provided "as is."
[~2021-10-20 00:27] MED LIST changes: +IRON325 PO; +MIRTAZAPINE7.5 MG PO; +PROTONIX40 M2 PO; +ZOFRAN4 MG PO
[2021-10-20 02:34] LABS: ABSOLUTE NEUTROPHILS 2.3 thou/uL (1.4-8.2); BASOPHILS 0.7 % (0.0-2.0); EOSINOPHILS 2.6 % (0.0-3.0); HEMATOCRIT 32.4 % (37.0-47.0); HEMOGLOBIN 10.3 gm/dL (12.0-15.0); LYMPHOCYTES 25.2 % (24.0-44.0); MCH 32.5 pg (26.0-34.0); MCHC 31.9 g/dL (28.0-37.0); MCV 101.7 fL (80.0-100.0); MONOCYTES 10.2 % (1.0-8.0); PLATELET COUNT 107 thou/uL (150-400); POLYS 61.3 % (36.0-66.0); RBC 3.18 mil/uL (4.20-5.00); RDW 18.5 % (10.5-14.5); WBC 3.8 thou/uL (4.0-11.0)
[2021-10-20 02:42] LABS: CALCIUM 9.1 mg/dL (8.5-10.1); POTASSIUM 4.4 mmol/L (3.5-5.1)
[2021-10-20 02:54] LABS: ALBUMIN 3.5 g/dL (3.4-5.0); TOTAL BILIRUBIN 0.4 mg/dL (0.2-1.0); TOTAL PROTEIN 7.2 g/dL (6.4-8.2)
[2021-10-20 04:59] LABS: URINE BILIRUBIN NEGATIVE (Negative); URINE BLOOD NEGATIVE (Negative); URINE CLARITY CLEAR; URINE COLOR YELLOW; URINE GLUCOSE-RANDOM* NEGATIVE (Negative); URINE KETONES NEGATIVE (Negative); URINE LEUKOCYTES-REFLEX NEGATIVE (Negative); URINE NITRITE-REFLEX NEGATIVE (Negative); URINE PROTEIN (DIPSTICK) NEGATIVE (Negative); URINE SPECIFIC GRAVITY 1.015 (1.005-1.035); URINE UROBILINOGEN 0.2 E.U./dl (0.2-1.0)
[2021-10-20 10:27] VITALS: BP 179/87
--- NOTE | 2021-10-20 18:23 | NUR ---
Pt dc'd from the ER this am back to her apt at [address], [address], [place] [address] ([facility]);however her martinez did not open her apt and the van service returned her to the ER. The pt refused to confirm her address with the ER staff or to provide an emergency contact, or alternate plan for safe return to her home. She denies having a cell phone to call her apt geothermal production manager or to call a sports therapist. [employer] contacted EMS to confirm the address that she was picked up at and it was the apt noted above. They note she indicated she had no medications and they were concerned about her living conditions. [employer] spoke with [facility] who she has been off and on service with several times in the past year. Their DON Farzana [phone] indicates that they have discharged the pt on 10/10 and making arrangements for her admission to ltc at [facility] in [place]. They had hotlined her many times and their staff were even having to bring her food as she was not able to access it on her own. Their socialworker helped her pack up her apt, turn off her utilities and cancel her lease; so it is unclear if the apt is still in her name or she is homeless. [facility] was contacted and their admission coordinator indicates that the pt never admitted there and they had given her bed to someone else. They would check on bed options and return my call. I have called them 4 additional times this afternoon to see if they would be able to accept her without response. The pt told ER staff she does not want to go to the intermediate and appears content to sit in the ER waiting room. She does not have the ability to make a safe plan for herself and her judgment seems impaired. She is very suspicious of any questions and denies any dc needs or concerns. She is well known to from admissions over the past two years. She has no family and no longer has any friends or neighbors that can assist her. She has been hotlined to [facility] many times. Case discussed with the care team and psych eval/competency/SBU eval recommended.
--- NOTE | 2021-10-21 11:10 | EKG ---
[facility] [place] [address] ELECTROCARDIOGRAM REPORT Name: PASCUAL HAAS [id number] Admission: 10/20/21 Attend Phys: Discharge: 10/20/21 Date of : 42 Report #: [id number] [facility] ED Test Date: 2021-10-20 Test Time: 04:18:55 Pat Name: PASCUAL HAAS Department: Room: Gender: F Renal Dietitian: ELLIE : 1940 Requested By: Floresita Bowie Order Number: [id number] MD: Isiah Bro Measurements Intervals [place] Rate: 56 P: 96 UT: 184 QRS: 26 QRSD: 99 T: 100 QT: 506 QTc: 489 Interpretive Statements Sinus bradycardia Probable LVH with secondary repol abnrm Borderline prolonged QT interval Compared to ECG 07/09/2021 15:04:38 Septal Q waves are no longer present Nonspecific change in the ST and T wave segments Electronically Signed On 10-21-2021 11:10:45 PROPERTY FIELD ADJUSTER by Isiah Bro [email or web address] <ELECTRONICALLY SIGNED> By: Isiah Bro MD, [facility] 10/21/21 1110 0418 0418 Isiah Bro MD, FAC /EPI
== END 2021-10-20 10:28 | disposition home or self-care (01) ==
LOC: ER 00:27
PROVIDERS: Emergency Medicine
DX: K29.70 Gastritis, unspecified, without bleeding (principal); K59.00 Constipation, unspecified; E78.5 Hyperlipidemia, unspecified; F32.9 Major depressive disorder, single episode, unspecified; I25.10 Atherosclerotic heart disease of native coronary artery without angina pectoris; I12.0 Hypertensive chronic kidney disease with stage 5 chronic kidney disease or end stage renal disease; N18.6 End stage renal disease; I48.91 Unspecified atrial fibrillation; I25.5 Ischemic cardiomyopathy; I73.9 Peripheral vascular disease, unspecified; Z86.718 Personal history of other venous thrombosis and embolism; Z98.890 Other specified postprocedural states; Z90.710 Acquired absence of both cervix and uterus; Z90.89 Acquired absence of other organs; Z79.82 Long term (current) use of aspirin; Z79.891 Long term (current) use of opiate analgesic; Z79.1 Long term (current) use of non-steroidal anti-inflammatories (NSAID); Z79.899 Other long term (current) drug therapy

== ENCOUNTER 2021-10-20 18:41 | Emergency (ER) | payer OTHER ==
[~2021-10-20] VITALS: Ht 152.4 cm; Wt 54.4 kg
[2021-10-21 04:14] VITALS: BP 159/72
== END 2021-10-21 04:42 ==
LOC: ER 18:41
PROVIDERS: Emergency Medicine
DX: R41.0 Disorientation, unspecified (principal); Z20.822 Contact with and (suspected) exposure to COVID-19; F02.80 Dementia in other diseases classified elsewhere, unspecified severity, without behavioral disturbance, psychotic disturbance, mood disturbance, and anxiety; F32.9 Major depressive disorder, single episode, unspecified; E78.5 Hyperlipidemia, unspecified; I25.10 Atherosclerotic heart disease of native coronary artery without angina pectoris; I48.91 Unspecified atrial fibrillation; I73.9 Peripheral vascular disease, unspecified; I12.0 Hypertensive chronic kidney disease with stage 5 chronic kidney disease or end stage renal disease; N18.6 End stage renal disease; Z90.49 Acquired absence of other specified parts of digestive tract; Z90.710 Acquired absence of both cervix and uterus; Z90.89 Acquired absence of other organs; Z79.82 Long term (current) use of aspirin; Z79.891 Long term (current) use of opiate analgesic; Z79.899 Other long term (current) drug therapy

== ENCOUNTER 2021-10-21 03:55 | Inpatient (IN) | payer OTHER ==
[~2021-10-21] VITALS: Ht 170.2 cm; Wt 47.8 kg
--- NOTE | 2021-10-21 06:15 | NUR ---
ADMISSION SUMMARY Pt was admitted to [facility] from [place] [facility] on 10/21/21 at 0419. Pt was made a 96 hour hold. Paperwork has been faxed and hard copies are in chart. Vital signs were obtained; pt was hypertensive. Notified hospitalist on air host on HTN. Pt would not allow a skin assessment of lower extremeties. Lower extremeties are wrapped in MARLA bandages. Pt denied SI, HI and AVH. Affec was constricted. Speech was clear and linear. Pt stated she saw someone wearing a furry costume on the unit. Pt was not oriented to date. Insight into situation is limited.
[2021-10-21 09:25] VITALS: BP 154/70
[2021-10-21 13:13] VITALS: BP 154/70
[2021-10-21 14:45] LABS: CHOLESTEROL 202 mg/dL (<200); HDL CHOLESTEROL 54 mg/dL (>40); LDL CHOLESTEROL 138 mg/dL (<100); TC:HDL 3.7 Ratio (Not establshd); TRIGLYCERIDE 53 mg/dL (<150); VLDL 11 mg/dL (<40)
--- NOTE | 2021-10-21 16:30 | NUR ---
SW met with Pt in her room. Pt was able to give some history. Pt stated she was born and raised in [place], [place]. Pt had 1 sister who is . Pt could not/ would not give the name of any support persons she can call in an emergency. Pt Stated she has a Masters in Finnish Studies. 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 Pt stated she lives alone. Pt stated she has a pension and social security. Pt could not tell me how she pays her bills. Pt informed she recieves meal on wheels. SW did complete a SLUMS with Pt. Pt scored an 09/20. DIMA was able to speak with Jose G at [facility] concerning the Pt. Jose G informed the Pt discharged from [facility] at [facility] about a month ago. The Pt was dropped off at the facility last night from [facility]. However the Pt is not a current resident so they sent her back to the hospital. Pt did not have keys to her home or know who to contact to get back into the home. Jose G informed some days the Pt is very clear and able to give information other times not as much. Jose G stated the Pt's address was [address] [place] [address]# [phone]. Jose G provided the contact info for Guilherme the DIMA from [facility] who may have more information on the Pt. DIMA did contact Guilherme and left a VM. Guilherme did return the call and informed the Pt's PCP is Dr. Denzel Cruz. Pt was discharged with home [facility] through [facility] [phone]. Pt's pharmacy is [facility] in [place], [place]. DIMA will continue to follow
--- NOTE | 2021-10-21 18:28 | NUR ---
Pt states she is unable to flush toilet. Very large 4 in by 8 in formed stool X 2 portions in toilet occuluding toilet with some liquid stool on commode and floor. Removed from toilet and brought to dirty utility. Rest of commode cleaned.
[2021-10-21 19:30] VITALS: BP 134/111
[2021-10-21 19:54] VITALS: BP 134/111
--- NOTE | 2021-10-21 20:11 | NUR ---
Assumed care on 10/21/21 @ 1900, seated in the day room in a hospital gown watching [employer] music show on tv. Ambulates iwth walker, A&Ox3 IV in left forearm s.l. Covid 19 PCR scheduled for 10/23 22. Will continue to monitor for safety and comfort as per unit protocol.
[2021-10-22 02:05] LABS: GLYCOHEMOGLOBIN (HGB A1C) 5.2 % (4.8-5.6)
[2021-10-22 08:52] VITALS: BP 145/73
[2021-10-22 08:55] VITALS: BP 145/73
--- NOTE | 2021-10-22 17:21 | NUR ---
Dee Dee Cap SALES RESEARCH ANALYST doing primary nursing care. Alert and orientated X2-3. Calm and cooperative. Denies SI/HI. Wants hair placed in ponytail. Breath sounds clear. Reg HR auscultated. Color pale pink with dusky toes. Brisk capillary refill and palpable peripheral pulses. Active bowel sounds over soft, flat abdomen. Dressing clean, dry and intact per coccyx. Lower legs dry with hyperpigmentation. Ambulates with steady gait with walker.
--- NOTE | 2021-10-22 22:19 | NUR ---
At onset of night shift manager pt was resting in bed awake. This shift pt was alert with constricted affect, oriented to self. Pt spent all evening resting in bed. Pt was compliant with medication and vital signs. During conversation with RN, pt talked about how a man wants to make the state [facility] her payee. Pt stated her neighbor is her payee and he is stealing her money. Pt talked about how she wants to return home to her apartment and that she has been working hard to clean up her apartment and she feels she is doing a good job. Pt stated she is going to be kicked out tomorrow. Pt appears to be confused and disorganized. Fall precautions are in place. Will continue to monitor. No SI, HI and AVH.
[2021-10-23 08:52] VITALS: BP 123/69
[2021-10-23 09:39] VITALS: BP 123/69
--- NOTE | 2021-10-23 17:34 | NUR ---
Assumed pt care this morning from overnight shift. Pt was in gerichair at the end of the hallway, and stated that she "wanted to get some sun" when asked what she was doing. Pt was oriented 3x, though did not seem to grasp that she was in the psychiatric unit of a hospital instead of the chapel unit-though she understood which hospital she was at, why, and where she was at. Pt presented calm and pleasant, and stated that she felt better since bathing yesterday. Pt voiced that she was not having any depression or anxiety, and voiced that she was not having any hallucinations despite thinking she was in a chapel per self report. Pt also voiced no suicidal or homicidal thoughts at this time. Pt lungs were clear and diminished at this time. Bowel sounds present. Last BM 10/11. Pt initially did not want to take her medications, but after talking to staff, agreed to take medications. Pt voiced having pain, and after staff spoke to pt about her options for pain management, voiced not being aware about having oxycodone as an option. Prn oxycodone was given at this time to help with 8/10 lower leg and saccral pain. Asked Dr. Laws for clarification of wound consult during this shift. Wound consult was ordered and clarified at this time with Dr. Deins Marquez. Per Dr. Marquez, apply barrier cream to sacral area BID. Tubi socks to legs qs. PRN hydrocodone given @ 553pm for pain 8/10. Client once again encouraged to voice needs and make needs known. No further concerns at this time.
[2021-10-23 19:34] VITALS: BP 127/73
--- NOTE | 2021-10-23 19:42 | NUR ---
Assumed care on 10/23/21 @ 1900, seated in a chair in her room speaking to unseen others. Refused to allow assessment, States, Im not feeling well from llunch and I don't have a dr or a nurse till I get this sorted out. Reports anxiety and depression are way down, deies hallucinations. Will continue to monitor for safety and comfort as per unit protocol.
[2021-10-23 20:17] VITALS: BP 127/73
--- NOTE | 2021-10-23 23:06 | H ---
[facility] [place] [address] HISTORY AND PHYSICAL Name: PASCUAL HAAS Room #: 519A-A ADM IN M.R.#: [id number] Admission: 10/21/21 Attend Phys: Alexx Laws DO Discharge: Date of : 42 Report #: [id number] THIS REPORT FOR: cc: Keny Silva MD,Keny Laws,Alexx Mosher DO ~ DATE OF SERVICE: 10/21/2021 INPATIENT PSYCHIATRIC EVALUATION The patient was currently admitted under a 96-hour hold to [facility] at [facility], but she is presenting as frankly demented, so she will remain a full code, but she will be under the parens patriae doctrine. Her BMI is abnormally low at 17.4, weight 50.394 kg and height 170.18 cm. ATTENDING PSYCHIATRIST: Alexx Laws DO SALESPERSON HANDBAGS: Sonia Reynolds APRN and Victor Hugo Rose MD REASON FOR ADMISSION: Basically self-care failure, accidental discharge by the [place] [facility] to [facility], which the patient was not placed at and in turn the patient being sent back and unable to care for herself, so she is requiring a dementia evaluation. CHIEF COMPLAINT: Is vague statements, like you will find out from the patient. HISTORY OF PRESENT ILLNESS: This is an 81-year-old quite ill-appearing female. She appears bedridden. She has multiple decubiti ranging from her buttocks down south to her bilateral legs. These have all been photographed, documented, Dr. Montemayor and his wound care team will be involved in the case. Additionally, dietitian, Sandra Mojica, has seen the patient and diagnosed her with severe protein-calorie malnutrition. The patient says the year is 2001, she comes to the conclusion that it is September. She does state it is a Sunday. She knows that John is president, but does not know that name of the medical device is Melissa Alexis. She knows it is a female though. The patient's Emergency Room record has documentation by four different attendings, so I will go ahead and read the first one by Dr. Bowie, 81-year-old female presented to the ER by ground EMS with complaints of upper abdominal pain since yesterday. She states the pain was waxing and waning, worse was 8/10, she states now 4/10. Denies nausea, vomiting. No chest pain, diarrhea 3 times a day. Denies blood. She denies F/PC. She denies chest pain or dyspnea. It looks like they did a CT abdomen and pelvis which showed no obstruction or constipation and will sign out to Dr. Armstrong to follow DVT result. Additional information from the ER is they combined her medical and surgical history, but it describes hyperlipidemia, depression, right hip replacement, laparoscopic [facility] [address] [place] [address] HISTORY AND PHYSICAL Name: PASCUAL HAAS Room #: 519A-A [facility] IN ..#: [id number] Admission: 10/21/21 Attend Phys: Alexx Laws, DO Discharge: Date of : 41 Report #: [id number] cholecystectomy, hysterectomy, tonsillectomy, coronary artery disease status post CABG x 4, stent placed, pelvic fracture, pressure ulcer, right buttock stage 3, chronic venous insufficiency, osteoarthritis, chronic kidney disease, anemia, paroxysmal atrial fibrillation, ischemic cardiomyopathy, DVT of the left lower extremity, off Xarelto, 11/24/2020, cellulitis of the left lower extremity, recurrent. She had a left aortogram with runoff, 01/2021, status post left SFA/popliteal. She has had an arthrectomy/stent placements and thrombectomy of left popliteal artery. Then it says, peripheral arterial disease, status post SFA I think that is superior femoral artery/femoral bypass with left popliteal stenting. She had a duplex 90% stenosis of her right SFA. She had an aortogram with runoff on 05/30/2021. She has hypertension, general debility, and says history of moderate protein-calorie malnutrition, but again registered dietitian, Sandra, has diagnosed her with severe protein-calorie malnutrition. To round out these diagnoses, bilateral lower extremity venous dermatitis scattered ulceration, and in 09/2020, she had an echo, this is a relatively positive finding to me and ejection fraction of 55%. Her home medications are described as sertraline 50 mg p.o. daily, mirtazapine 7.5 mg p.o. daily, tramadol 50 mg daily, amiodarone 200 mg p.o. daily, pantoprazole 40 mg p.o. b.i.d. and multivitamin with iron. ALLERGIES: No known allergies. MEDICATIONS: There are several other scripts noted, they include MiraLax, trazodone, atorvastatin, acetaminophen, diclofenac, ammonium lactate, torsemide, cyanocobalamin, aspirin, ferrous sulfate and isosorbide mononitrate. SOCIAL HISTORY: No history of smoking, quit in the ER. No alcohol use. No recreational drug use. REVIEW OF SYSTEMS: From the ER: CONSTITUTIONAL: Denies fever, chills, malaise. EYES: Denies eye pain, blurred vision, discharge. HENT: Denies congestion, headache, ear pain, sore throat. RESPIRATORY: Denies cough, shortness of breath. CARDIOVASCULAR: Denies chest pain, palpitations. GASTROINTESTINAL: Endorses abdominal pain, diarrhea. Denies nausea, vomiting, blood in stools. GENITOURINARY: Denies burning, urgency, frequency, hematuria. SKIN: Denies rash. Her weight 63.5 kg in the ER. DIAGNOSTICS: There was an EKG done on 10/20 that showed QTc 409 milliseconds, QT 506 milliseconds, CA interval 184 milliseconds, ventricular rate 56, read as sinus bradycardia. Probable LVH with secondary repolarization abnormality, [facility] [address] [place] [address] HISTORY AND PHYSICAL Name: PASCUAL HAAS Room #: 519A-A ADM IN [facility].#: [id number] Admission: 10/21/21 Attend Phys: Alexx Laws DO Discharge: Date of : 41 Report #: [id number] borderline prolonged QT interval. There were, of note, several intervening ER notes, but basically she was admitted to [facility] for being a self-care failure. There are concerns, her home is in bad repair, foul-smelling, etc., per EMS report. PHYSICAL EXAMINATION: VITAL SIGNS: Today, temperature 35.9, pulse 58, respirations 17, BP 134/70. GENERAL: Exam at bedside, supine, ill appearing, disheveled. She claimed of bruising and I looked briefly at her upper extremities and then she told me it was cream, so I asked her if someone squeezed a tube of cream all over her and she said well she did not know what it was. It is unclear where this happened and what I think she was referring to is Sonia had ordered Silvadene to be applied to her wound, Sonia is a hospitalist nurse practitioner. MENTAL STATUS EXAMINATION: Well-developed, quite ill, debilitated-appearing female. Attention and concentration fair to limited. Speech: Monotone, normal in rate. Thought process: Linear and goal directed. Thought content: Displays blocking behavior. She will leave explanations like "you will find out, you wanna know." This is the way it is. She denied overt suicidality, homicidality. I was not able flush out well if she is having auditory, visual or tactile hallucinations. Memory not formally tested by me, but my social services specialist, Mishel, is doing [facility] examination. Insight and judgment are impaired. Fund of knowledge is appearing below average. FORMULATION: An 81-year-old female presenting initially as self-care failure in the ER, failed discharge-admission to [facility] [place], subsequent being sent back to the ER for lack of discharge plan and self-care failure. DIAGNOSES: At this time, working diagnoses: Major neurocognitive disorder, unspecified, likely vascular versus Alzheimer's with behavioral disturbance. The patient's medical comorbidities appear to be undeniably numerous including decubitus wounds, arterial venous insufficiency, multiple other wounds of her lower extremities, generalized weakness, debility, anemia, neutropenia, hypertension, coronary artery disease status post CABG, hyperlipidemia, paroxysmal atrial fibrillation, on amiodarone. History of left lower extremity DVT, off anticoagulation. PLAN: The patient admitted, I believe, under a 96-hour hold now under parens patriae doctrine. Evaluate, stabilize, obtain collateral. At the moment, the hospitalist internal medicine service is managing a number of things to deal with her physical problems. I do not see a johnson for us to get into psychotropic [facility] [address] [place] [address] HISTORY AND PHYSICAL Name: PASCUAL HAAS Room #: 519A-A ADM IN ..#: [id number] Admission: 10/21/21 Attend Phys: Alexx Laws DO Discharge: Date of : 41 Report #: [id number] medication. We need to thoroughly make sure she has no surrogate decision maker at the living situation and as desperate as I think. The patient will likely need a [place] guardianship and conservatorship. Time spent on discussion of this case with social services specialist, Sonia Reynolds, review of records, bedside examining the patient was over 60 minutes, greater than 50% of time was spent on review of records and coordination of care. The patient really does not have any strengths because she does not have a functional home, she is going to need a guardianship. She is in terrible general medical shape. strengths: none appearing! WEAKNESSES: Really too numerous to count. <ELECTRONICALLY SIGNED> By: Alexx Laws DO 10/23/21 [id number] Alexx Laws, /nt
[2021-10-24 08:53] VITALS: BP 106/47
[2021-10-24 10:30] VITALS: BP 112/57
--- NOTE | 2021-10-24 16:36 | NUR ---
Assumed pt care this morning from overnight shift. Pt presented pleasant initially when staff when into her room and talked to her, and let staff assess her. Lung sounds were clear, and bowel sounds present. Patient was calm and oriented 3x during this time. Pt stated that she had pain, but refused pain medication, stating that she wanted to "save medication for when it hurt." Staff stated that staff would come back with medication after tubi socks were put on by OT, as previously, pt had declined cream and PT due to pain. Socks put on by OT. When this nurse came back, client was disoriented x3, and oriented to self only. Client stated that "all staff here were liars" and stated "I can't trust any of you" when asked to clarify. Client stated that she did not want any of her medication and that she did not trust staff to give it to her. Client continued to state that she was not amicable to taking medication. Client refused help with ADLs, and refused help with toileting as well. Client also refused scheduled barrier cream application at this time. Staff came back again in one house, and client continued to refuse medication. This time, medications were crushed, but client still refused to take them with lunch. Client stated that she did not want any medications, and refused them at this time. Dr. Laws notified. Wound care came in to see client tonight shortly after 1600. Continue with barrier cream, socks, and cares established per orders. No further concerns at this time.
[2021-10-24 20:20] VITALS: BP 112/57
[2021-10-24 20:28] VITALS: BP 112/57
--- NOTE | 2021-10-25 02:18 | NUR ---
PATIENT SAT UP IN ASHLEY CHAIR WITH FEET ELEVATED PART WAY. HURTS KNEES TO ELEVATE ALL THE WAY. SHE WAS IN ROOM. SHE REFUSED TO LAY IN HER BED UNTIL WE WERE ABLE TO CONVINCE HER THAT SHE NEEDED TO GET OFF HER RIGHT BUTTOCK WOUND. PATIENT WAS ASSISTED TO THE BATHROOM AT THIS TIME AND WOUND CLEANED AND BARRIER CREAM APPLIED TO RIGHT BUTTOCK. IT HAS 2 OPEN SLITS THAT ARE HEALING AND SCABBING. COVERED THE WOUND WITH ADHESIVE PAD D/T WOUND DRIES AND STICKS TO CLOTHES OR BRIEFS. PATIENT ASSISTED TO BED AND LAID ON HER SIDE. PATIENT GIVEN HYDROCODONE PRN FOR 9/10 PAIN. PATIENT MADE COMFORTABLE IN BED. SHE HAS BEEN POLITE AND COOPERATIVE BUT WITH SOME IRRITABILITY FROM PAIN. SHE IS A/0X2. DENIES SI/HI/AVH. BED IN LOW POSITION AND BED ALARM IS ON. ROUTINE ROUNDS TO ASSESS SAFETY AND STATUS OF PATIENT.
[2021-10-25 08:00] VITALS: BP 108/52
--- NOTE | 2021-10-25 09:06 | HC ---
[facility] [place] [address] CONSULTATION Name: PASCUAL HAAS Room #: 519A-A ADM IN ..#: [id number] Admission: 10/21/21 Attend Phys: Alexx Laws DO Discharge: Date of : 41 Report #: [id number] THIS REPORT FOR: cc: Keny Silva MD, Christopher B. MD [place], Allen B. MD ~ DATE OF SERVICE: 10/23/2021 WOUND CARE CONSULTATION NOTE REASON FOR CONSULTATION: Right gluteal pressure sore and hyperkeratosis of legs. HISTORY OF PRESENT ILLNESS: The patient is a very pleasant 81-year-old woman on a 96-hour hold to [facility] for ayaka dementia. Dr. Alexx Laws has consulted me due to wounds noted of the right gluteal area and for changes of her legs. The patient states she has noted a wound on her right buttock, which is somewhat sore. The patient is pleasant, but not a good historian. PAST MEDICAL HISTORY: 1. Dementia. 2. History of severe protein-calorie malnutrition. 3. Immobility, sometimes in bed for prolonged periods. 4. Hyperlipidemia. 5. History of depression. 6. History of dementia. PAST SURGICAL HISTORY: Right hip replacement, laparoscopic cholecystectomy, hysterectomy, tonsillectomy, coronary artery disease status post CABG x 4, chronic venous insufficiency, osteoarthritis, chronic kidney disease, history of atrial fibrillation, ischemic cardiomyopathy, history of deep vein thrombosis of the left lower extremity, history of recurrent cellulitis of lower extremities, history of peripheral vascular disease. PHYSICAL EXAMINATION: GENERAL: Shows a thin elderly woman who is alert and pleasant and appropriate. HEENT: Mucous membranes are moist. Sclerae white. NECK: Supple. LUNGS: Respirations unlabored. ABDOMEN: Soft. SKIN: Examination of the patient's back and buttocks shows stage 1 pressure change in the sacral area with reddened skin. There is a 1.5 x 1 cm superficial stage 3 pressure ulcer of the medial right buttock with healthy clean red base, only 0.1 cm deep. EXTREMITIES: Examination of the lower extremities showed no open wounds, but [facility] [address] [place] [address] CONSULTATION Name: PASCUAL HAAS Room #: 519A-A [facility] IN [facility].#: [id number] Admission: 10/21/21 Attend Phys: Alexx Laws DO Discharge: Date of : 41 Report #: [id number] hyperkeratosis of the skin below the knees. IMPRESSION: 1. Dementia. 2. Right gluteal stage 3 pressure ulcer, small. 3. Sacral stage 1 pressure changes. 4. Venous stasis of bilateral lower extremities with inflammation, hyperkeratosis, but no open wounds. 5. Severe protein-calorie malnutrition. 6. Coronary artery disease. 7. History of atrial fibrillation. 8. History of deep vein thrombosis. 9. Peripheral vascular disease. WOUND CARE PLAN: Apply thick barrier cream to sacral area and right buttock twice daily. Limit prolonged sitting. For her legs Amlactin 12% cream (ammonium lactate 12%) was ordered to be applied to both legs daily. Tubigrip stockings were ordered. Wound care team will follow. <ELECTRONICALLY SIGNED> By: Denis Marquez MD 10/25/21905 1626 22 Denis Marquez MD /nt
[2021-10-25 09:26] VITALS: BP 108/52
--- NOTE | 2021-10-25 11:46 | NUR ---
PATIENT HAS BEEN A/0X2-3 TODAY. SHE HAS BEEN PLEASANT, CALM AND COOPERATIVE. 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 VERY DRY SKIN AND SMALL BREAK DOWN OF SKIN BACK OF CALVES HEALING. DRESSING PUT ON R BUTTOCK D/T SMALL OOZING CAUSING WOUND TO STICK TO CLOTHING AND TEARS SCAB AND HURTS WHEN TOILETING. NO SIGNS OF INFECTION. AREA CLEANED AND BARRIER CREAM APPLIED. PATIENT TOOK MEDS WHOLE WITH WATER. SHE WAS GIVEN PAIN MEDS ONCE IN NIGHT AND ONCE THIS MORNING. SHE WAS UP AND WALKED SHORT DISTANCE WITH PT TODAY. PATIENT SLEEPING IN RECLINER CHAIR IN ROOM. CHAIR ALARM IN PLACE AND WORKING. CONTINUING TO MONITOR.
[2021-10-25 19:30] VITALS: BP 141/76
--- NOTE | 2021-10-25 20:05 | NUR ---
Assumed care on 10/25/21 @ 1900, in her room seated in a regina chair. A&Ox1 Confusion and agitation noted. Is angry that she cannot call a taxi and leave the hospital tonight. Refused snack. Cooperated with assessment HRRR, Lung sounds diminished but clear, ABD N x 4Q.
[2021-10-25 20:36] VITALS: BP 141/76
[2021-10-26 08:55] VITALS: BP 98/55
[2021-10-26 08:59] VITALS: BP 111/42
--- NOTE | 2021-10-26 17:15 | NUR ---
Referral sent to the following: [facility] Ortiz
[2021-10-26 19:07] VITALS: BP 98/55
[2021-10-26 19:45] VITALS: BP 98/55
--- NOTE | 2021-10-26 21:15 | NUR ---
Assumed pt care from overnight shift this am. Client was in gerichair in living room resting at this time. Client presented alert and oriented to self only. 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 Client could not answer question about hallucinations either, and asked if she was on vacation. Staff tried to reorient client at this time, but client could not be reoriented. Client refused cares to legs, but kept tubi socks on. Client did not want to sit up for sacral cares, though was propped up on pillows. Client declined pain medicine, but did take her scheduled medication with prompting and encouragment over a period of time. Lung sounds clear. Bowel sounds present. Client did not voice other concerns. Client then went to sleep in the gerichair and have been toileted several times this shift. No further concerns.
--- NOTE | 2021-10-26 23:17 | NUR ---
Assumed care on 10/25/21 @ 1900, seated in regina chair at the beginning of shift and presented as alert and oriented x1 with confusion noted. Not able to answer mental health question d/t dementia. Took meds crushed in pudding and was quite happy to have the remainder of the pudding as a snack. Refused to lay in bed @ HS, but settled into regina chair to sleep, the foot rest being up in it's full upright position gave her pain in the lower extremities, adjusted for her comfort and Hydrocode 5/325 provided for 8/10 pain. Upon follow up is noted to be sleeping. High fall risk, chair alarm under patient in regina chair. Will continue to monitor for safety and comfort as per unit protocol.
[2021-10-27 09:19] VITALS: BP 113/49
[2021-10-27 10:21] VITALS: BP 118/68
--- NOTE | 2021-10-27 12:04 | NUR ---
RESSUMMED CARE FROM OVERNIGHT SHIFT THIS AM, PATIENT LYING IN BED QUIET. WHEN I WAS DOING MY ASSESSMENT PATIENT DID NOT WANT TO ALLOW ME TO LOOK AT HER COCCYX OR SACRAL AREA. WHEN WAS LOOKING AT PATIENTS LEGS SHE YELLED FR ME TO LEAE HER ALONE. PATIENT DENIES SI/HI/AH/VH AT PRESENT; PATIENT DOES HAVE ANXIETY WHICH SHE RATES IT AT A 5 AND DEPRESSION A 3. PATIENT DID ALLOW ME TO GET HER UP TO PARTICPATE IN GROUPS. WILL CONTINUE TO MONITOR PATIENT FOR SAFETY AND BEHAVIORS.
--- NOTE | 2021-10-27 17:36 | NUR ---
DIMA recieved a call from Camila at [facility] of [facility], . They are willing to accept the Pt SNF. DIMA talked to the Pt about the placement. Pt is not in agreement to going to SNF and wants to return home. DIMA talked to Pt about pros and cons of going home. Pt still request to go home. DIMA will speak with Dr. Salcedo concerning the matter.
[2021-10-27 19:18] VITALS: BP 112/72
--- NOTE | 2021-10-27 23:12 | NUR ---
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 This shift pt was alert and oriented to self. Insight is limited. Pt understands she is in the hospital, but gets confused easily and thinks she is in an office. Pt is resistive to cares; would not allow nurse to apply tubigrip, assess wounds, or apply creams. Pt complained that she feels she is not improving and needs physical therapy. It was reported to this RN that physical therapy did come see pt today but she was sleeping and would not wake up. Pt is upset she has been in the hospital for 1 week. Pt made comments stating that she could take care of herself at home, but then contradicts herself stating that she is not getting better. Fall precautions are in place. Will continue to monitor.
[2021-10-28 09:04] VITALS: BP 117/59
--- NOTE | 2021-10-28 10:36 | NUR ---
RT Progress Note- Aylin's participation in both the milieu and recreation therapy groups has been very minimal throughout her first week of admission. Aylin often sleeps or declines leaving her room, limited her presence to the unit. Recreation therapy team will continue to encourage her participation.
--- NOTE | 2021-10-28 11:05 | NUR ---
REFUSED TO COME OUT FOR BREAKFAST/AM GROUP-REPORTING LE PAIN AND RATED PAIN AN 8 ON 1-10 SCALE. NORCO 5/325MG GIVEN PO PRN AT 1020 FOR ABOVE NOTED PRIOR TO PT SESSION-IS RESTING QUIETLY IN BED UPON F/U ASSESSMENT. WAS COMPLIENT WITH TAKING OTHER SCHEDULED AM MEDS-DESCRIBES MOOD "PRETTY GOOD" AND STATES SHE SLEPT WELL LAST NIGHT. DYSPHORIC MOOD-REFUSED WOUND CARE/DRESSING CHANGE THIS AM STATING SHE WANTED TO WAIT "IM IN TOO MUCH PAIN AND I AM TIRED"APPETITE IS FAIR. ORIENTED TO PERSON/PLACE. CONTINUES ON FALLS PRECAUTIONS
[2021-10-28] MEDS ORDERED: PACERONE 200 M200 M1 PO (12:52)
[2021-10-28] MEDS ORDERED: LIPITOR40 MG PO (12:53)
[2021-10-28] MEDS ORDERED: IMDUR 30 MG TAB30 M1 PO (12:53)
[2021-10-28] MEDS ORDERED: BAYER CHEWABLE81 MG PO (12:56)
[2021-10-28] MEDS ORDERED: RISPERDAL 1 MG T1 MG PO (12:57)
[2021-10-28] MEDS ORDERED: PROTONIX 20 MG20 M1 PO (12:58)
[2021-10-28] MEDS ORDERED: MEGESTROL400 MG/11 PO (12:59)
[2021-10-28] MEDS ORDERED: B-12500 MCG PO (12:59)
--- NOTE | 2021-10-28 13:45 | NUR ---
NOTED INCREASE IN ANXIETY/IRRITABILITY SINCE THIS NURSE INFORMED HER OF PENDING DC-STATING SHE HAD NO IDEA SHE WS BEING DC'D AND IS ASKING WHERE SHE IS GOING. SW REPORTS MD/SW TALKED WITH PT THIS AM AND SHE AGREED TO SNF PLACEMENT. HAS BEEN RINGING PATEL EVERY 5-10 MINUTES REPORTING SEVERE PAIN TO LE-RATED A 10 ON 1-10 SCALE,REPOSITIONED FOR COMFORT X 3 WITH NO NOTED/REPORTED DECREASE IN PAIN. ANGRY FACIAL EXPRESSION-YELLING AT NURSING STAFF STATING WE ARE WITHHOLDING PAIN MED TO PUNISH HER. INFORMED IT HAD BEEN GIVEN AT 1030 AND COULD NOT BE GIVEN AGAIN UNTIL [address] FONTANA CALLED AND ORDER RECEIVED TO ALLOW ADMIN OF PRN NORCO 30 MIN PRIOR TO DC
--- NOTE | 2021-10-28 14:57 | NUR ---
DIMA and Dr. Salcedo talked to the Pt about SNF. Pt was in agreement to the SNF placement this morning. Pt was informed where the placment was and how SNF would help her. DIMA informed the Pt she would be discharge today to [facility]. Pt did not have any questions concerning the matter at this time. DIMA did call Camila, evelyne, at [facility] to inform that Pt was in agreement. Discharge was set for 10/28/2021 @ [address] [facility] will set up transportation. DIMA did fax discharge documents and SNF order to Camila at [phone]
--- NOTE | 2021-10-28 17:19 | NUR ---
PT PROVIDED WITH DISCHARGE INSTRUCTIONS AND MEDICARE DC FORM X2 PRIOR TO DC-REFUSING TO LOOK AT PAPERWORK PROVIDED INSISTING SHE DID NOT AGREE TO SNF PLACEMENT AND WAS NOT GOING TO GO-REFUSES TO SIGN ANY DISCHARGE PAPERWORK-DID ALLOW NURSING STAFF TO REMOVE HOSPITAL GOWN AND DRESS IN WARMER CLOTHES BUT WAS A PASSIVE PARTICIPANT AND DID NOT ASSIST IN DRESSING SELF. AT 1600 [employer] TRANSPORTER ARRIVED AFTER APPROX 15 MINUTES RESISTING DID ALLOW STAFF TO TRANSFER TO -STATING "I WILL LEAVE THERE SOON I CAN-I AM GOING HOME" DENIES SI/SH/HI ON DC. PERSONAL BELONGINGS SENT WITH PT AT TIME OF DC
--- NOTE | 2021-10-29 13:54 | D ---
[facility] [address] [address] DISCHARGE SUMMARY Name: PASCUAL HAAS Room #: 519A-A [facility] IN M.R.#: [id number] Admission: 10/21/21 Attend Phys: Alexx Laws DO Discharge: 10/28/21 Date of : 42 Report #: [id number] THIS REPORT FOR: cc: Keny Silva MD, Christopher B. MD Kerstein,Alexx Mosher DO ~ DATE OF SERVICE: 10/28/2021 INPATIENT PSYCHIATRIC DISCHARGE SUMMARY ATTENDING PSYCHIATRIST: Alexx Laws DO FINANCE TEACHER: Dangelo Xie MD Wound Care: Drs. Marquez and Amor DISCHARGE DIAGNOSES: Major neurocognitive disorder, unspecified, without behavioral disturbance, mild degree. Additional diagnoses include coronary artery disease, history of ischemic cardiomyopathy, paroxysmal atrial fibrillation, peripheral arterial disease, chronic kidney disease, general debility, deconditioning.Stage III decubitus on right buttux The patient is being discharged to [facility] for retirement stay. Psychiatric and medical care per receiving facility. DISCHARGE DIET: Regular. I recommend supplementation with Ensure twice per day, patient had about a 6 kilograms weight gain this admission. Megace, she is using 800 mg daily. DISCHARGE MEDICATIONS: Otherwise, amiodarone 200 mg oral daily for dysrhythmia; multivitamin with iron and minerals 1 tablet oral daily for supplementation; ammonium lactate topical lotion due to wounds on legs; MiraLax 17 g oral twice daily as needed for constipation. Atorvastatin 40 mg oral daily for hyperlipidemia, isosorbide mononitrate 30 mg a day for coronary artery disease, aspirin chewable 81 mg oral daily for hypertension, risperidone 1 mg oral at 0900 and 2100 for psychosis, pantoprazole 40 mg oral daily for GERD, Megace 800 mg oral daily, cyanocobalamin 500 mcg oral daily. LABORATORY DATA: Significant laboratories this admission, hematology on 10/20 showed a white count of 3.8, H and H of 10.3 and 32.4, platelet count 107. Chemistries within normal limits on 10/20 except BUN 24, ALT 19, which was low. Urinalysis was negative this admission. Toxicology, no tests were done. COVID-19 testing, nonreactive on 10/20, 10/24 and 10/25. The patient is up with assist. Uses a walker, gait belt, shower chair. Needs [facility] [address] [place] [address] DISCHARGE SUMMARY Name: PASCUAL HAAS Room #: 519A-A [facility] IN [facility]#: [id number] Admission: 10/21/21 Attend Phys: Alexx Laws, Discharge: 10/28/21 Date of : 42 Report #: [id number] assistance with bathing and grooming. REASON FOR ADMISSION: Back on 10/21, an 81-year-old female, initially on 96-hour hold, but readily became parens patrea. 81-year-old female. She had swollen stage 2-3 buttock wounds. Very malnourished. Evidently, came to the ER with complaints of upper abdominal pain. She had been in a nursing facility, sent back to the ER and spent several days in the ER. HOSPITAL COURSE: The patient was admitted to Geriatric Psychiatry Unit. The patient scored 11/30 on SLUMS. She had poor insight into her dementia and care needs. There were some buttuck and leg wounds. They improved much. Wound care physician was involved. APRIL was ordered. The patient did okay, but did have deficits. She is known to the medical service here. It became clear that she was a [place] resident and we cannot get her [place] guardianship. Efforts were turned into getting her retirement placement in [place], which was done. PHYSICAL EXAMINATION: VITAL SIGNS: Temperature 36.4, pulse 73, respirations 18, BP 117/59, O2 sat 98%. GENERAL: In Maryana chair, ambulation was not checked. Frail, ill-appearing. MENTAL STATUS EXAMINATION: Well-developed, ill, frail-appearing female appearing at least stated age. Attention fair. Concentration limited. Speech normal in rate ____. Thought process: Linear, limited. Thought content, often answering with "I don't know." Denied active SI, HI. Was concerned about ____. Denied auditory or visual ____ hallucinations. Memory not formally tested. Insight and judgment limited. Fund of knowledge above average bilaterally. Prognosis for this patient is quite guarded given her poor social support, ____ surrogate decision maker, ____ addressed in the long run. <ELECTRONICALLY SIGNED> By: Alexx Laws DO 10/29/21 [id number] Alexx Laws DO /nt
== END 2021-10-28 16:00 | DRG 884 ==
LOC: SBH 03:55
PROVIDERS: Nurse Practitioner Psychiatric/Mental Health; ADMIT Psychiatry & Neurology Psychiatry; ATTEND Psychiatry & Neurology Psychiatry
DX: F01.50 Vascular dementia, unspecified severity, without behavioral disturbance, psychotic disturbance, mood disturbance, and anxiety (principal); E43 Unspecified severe protein-calorie malnutrition; N18.9 Chronic kidney disease, unspecified; L89.313 Pressure ulcer of right buttock, stage 3; Z68.1 Body mass index [BMI] 19.9 or less, adult; L03.116 Cellulitis of left lower limb; L03.115 Cellulitis of right lower limb; L97.929 Non-pressure chronic ulcer of unspecified part of left lower leg with unspecified severity; L97.919 Non-pressure chronic ulcer of unspecified part of right lower leg with unspecified severity; I73.9 Peripheral vascular disease, unspecified; I25.10 Atherosclerotic heart disease of native coronary artery without angina pectoris; I48.0 Paroxysmal atrial fibrillation; R53.81 Other malaise; I25.5 Ischemic cardiomyopathy; I12.9 Hypertensive chronic kidney disease with stage 1 through stage 4 chronic kidney disease, or unspecified chronic kidney disease; L89.151 Pressure ulcer of sacral region, stage 1; L85.9 Epidermal thickening, unspecified; R26.9 Unspecified abnormalities of gait and mobility; Z20.822 Contact with and (suspected) exposure to COVID-19; K21.9 Gastro-esophageal reflux disease without esophagitis; D53.9 Nutritional anemia, unspecified; E78.5 Hyperlipidemia, unspecified; F32.A Depression, unspecified; M19.90 Unspecified osteoarthritis, unspecified site; I87.2 Venous insufficiency (chronic) (peripheral); Z96.641 Presence of right artificial hip joint; Z90.49 Acquired absence of other specified parts of digestive tract; Z90.710 Acquired absence of both cervix and uterus; Z95.1 Presence of aortocoronary bypass graft; Z86.718 Personal history of other venous thrombosis and embolism; Z95.820 Peripheral vascular angioplasty status with implants and grafts
CPT/HCPCS: 10880